=== PATIENT | male | born 1945 | race Caucasian/White ===

== ENCOUNTER → 2016-12-22 | Outpatient (CLI) | payer MEDICARE ==
[2016-12-22 14:17] LABS: BASO % 0.6 % (0.0-1.0); EOS # 0.2 K/mm3 (0.0-0.50); LARGE UNSTAINED CELL # 0.2 K/mm3 (0.0-0.4); LARGE UNSTAINED CELL % 2.7 % (0.0-4.0); LYMPH # 1.6 K/mm3 (1.5-4.5); MEAN CORPUSCULAR HEMOGLOBIN 33.4 pg (27.0-33.0); MEAN CORPUSCULAR HGB CONC 34.6 g/dl (32.0-36.5); MEAN CORPUSCULAR VOLUME 96.5 fl (80.0-96.0); MONO # 0.4 K/mm3 (0.0-0.8); MONO % 6.1 % (0.0-5.0); NEUTROPHILS # 3.3 K/mm3 (1.8-7.7); NEUTROPHILS % 58.5 % (36.0-66.0); PLATELET COUNT, AUTOMATED 218 k/mm3 (150-450); RED CELL DISTRIBUTION WIDTH 11.8 % (11.5-14.5); WHITE BLOOD COUNT 5.7 K/mm3 (4.0-10.0)
[2016-12-22 14:33] LABS: ALBUMIN/GLOBULIN RATIO 1.43 (1.00-1.93); ALKALINE PHOSPHATASE 57 U/L (45-117); ALT/SGPT 28 U/L (12-78); ANION GAP 8 MEQ/L (8-16); AST/SGOT 13 U/L (15-37); BILIRUBIN,TOTAL 0.6 MG/DL (0.2-1.0); BLOOD UREA NITROGEN 23 MG/DL (7-18); CARBON DIOXIDE LEVEL 30 MEQ/L (21-32); CHLORIDE LEVEL 99 MEQ/L (98-107); CHOLESTEROL LEVEL 194 MG/DL (<200); GLOMERULAR FILTRATION RATE > 60.0 (>42); GLUCOSE, FASTING 103 MG/DL (83-110); POTASSIUM SERUM 4.4 MEQ/L (3.5-5.1); SODIUM LEVEL 137 MEQ/L (136-145); TOTAL PROTEIN 6.8 GM/DL (6.4-8.2); TRIGLYCERIDES LEVEL 160 MG/DL (<150)
== END ==
LOC: M SMT 08:36
PROVIDERS: ATTEND Family Medicine
DX: R73.01 Impaired fasting glucose (principal); I10 Essential (primary) hypertension

== ENCOUNTER → 2017-11-24 | Outpatient (CLI) | payer MEDICARE | LOC: M ADAMS 15:17 | DX: S20.212A Contusion of left front wall of thorax, initial encounter (principal); X58.XXXA Exposure to other specified factors, initial encounter; Y92.9 Unspecified place or not applicable | CPT/HCPCS: 71101 ==

== ENCOUNTER → 2017-12-20 | Outpatient (CLI) | payer MEDICARE ==
[2017-12-20 12:09] LABS: ALBUMIN/GLOBULIN RATIO 1.43 (1.00-1.93); ALKALINE PHOSPHATASE 74 U/L (45-117); ALT/SGPT 24 U/L (12-78); ANION GAP 8 MEQ/L (8-16); AST/SGOT 16 U/L (7-37); BILIRUBIN,TOTAL 0.8 MG/DL (0.2-1.0); BLOOD UREA NITROGEN 15 MG/DL (7-18); CALCIUM LEVEL 8.7 MG/DL (8.8-10.2); CARBON DIOXIDE LEVEL 28 MEQ/L (21-32); CHLORIDE LEVEL 99 MEQ/L (98-107); CHOLESTEROL LEVEL 178 MG/DL (<200); CHOLESTEROL RISK RATIO 3.955 (<5); CREATININE FOR GFR 0.98 MG/DL (0.70-1.30); GLOMERULAR FILTRATION RATE > 60.0 (>42); GLUCOSE, FASTING 118 MG/DL (70-100); HDL CHOLESTEROL 45 MG/DL (>40); LDL CHOLESTEROL 99.6 MG/DL (<100); NON-HDL-C 133 MG/DL; POTASSIUM SERUM 4.4 MEQ/L (3.5-5.1); PSA SCREENING 5.77 NG/ML (< 4.0); SODIUM LEVEL 135 MEQ/L (136-145); TOTAL PROTEIN 6.8 GM/DL (6.4-8.2); TRIGLYCERIDES LEVEL 167 MG/DL (<150)
[2017-12-20 12:10] LABS: BASO % 0.6 % (0.0-1.0); EOS # 0.3 10^3/uL (0.0-0.50); EOS % 4.1 % (0.0-3.0); ESTIMATED AVERAGE GLUCOSE 114 MG/DL (60-110); HEMATOCRIT 40.3 % (42.0-52.0); HEMOGLOBIN 13.8 g/dl (13.5-17.5); HEMOGLOBIN A1c 5.6 %; IMMATURE GRANULOCYTE % 0.6 % (0-3.0); LYMPH # 1.7 10^3/uL (1.5-4.5); LYMPH % 27.1 % (24.0-44.0); MEAN CORPUSCULAR HEMOGLOBIN 32.2 pg (27.0-33.0); MEAN CORPUSCULAR HGB CONC 34.2 g/dl (32.0-36.5); MEAN CORPUSCULAR VOLUME 94.2 fl (80.0-96.0); MONO # 0.5 10^3/uL (0.0-0.8); MONO % 8.2 % (0.0-5.0); NEUTROPHILS # 3.8 10^3/uL (1.8-7.7); NEUTROPHILS % 59.4 % (36.0-66.0); PLATELET COUNT, AUTOMATED 220 10^3/uL (150-450); RED BLOOD COUNT 4.28 10^6/uL (4.30-6.10); WHITE BLOOD COUNT 6.3 10^3/uL (4.0-10.0)
== END ==
LOC: M SMT 08:22
DX: N40.0 Benign prostatic hyperplasia without lower urinary tract symptoms (principal); I10 Essential (primary) hypertension; R73.01 Impaired fasting glucose
CPT/HCPCS: 80053

== ENCOUNTER → 2019-01-17 | Outpatient (CLI) | payer MEDICARE ==
[2019-01-17 13:29] LABS: BASO % 0.4 % (0.0-1.0); EOS # 0.3 10^3/uL (0.0-0.50); EOS % 4.2 % (0.0-3.0); HEMATOCRIT 40.8 % (42.0-52.0); HEMOGLOBIN 13.7 g/dl (13.5-17.5); LYMPH # 1.8 10^3/uL (1.5-4.5); LYMPH % 25.5 % (24.0-44.0); MEAN CORPUSCULAR HEMOGLOBIN 32.6 pg (27.0-33.0); MEAN CORPUSCULAR HGB CONC 33.6 g/dl (32.0-36.5); MEAN CORPUSCULAR VOLUME 97.1 fl (80.0-96.0); MONO # 0.5 10^3/uL (0.0-0.8); MONO % 6.6 % (0.0-5.0); NEUTROPHILS # 4.4 10^3/uL (1.8-7.7); NEUTROPHILS % 62.3 % (36.0-66.0); PLATELET COUNT, AUTOMATED 249 10^3/uL (150-450)
[2019-01-17 13:56] LABS: ALBUMIN 3.9 GM/DL (3.2-5.2); ALT/SGPT 29 U/L (12-78); BILIRUBIN,TOTAL 0.6 MG/DL (0.2-1.0); BLOOD UREA NITROGEN 20 MG/DL (7-18); CARBON DIOXIDE LEVEL 28 MEQ/L (21-32); CHLORIDE LEVEL 102 MEQ/L (98-107); CHOLESTEROL LEVEL 191 MG/DL (<200); CHOLESTEROL RISK RATIO 4.063 (<5); CREATININE FOR GFR 0.98 MG/DL (0.70-1.30); GLOMERULAR FILTRATION RATE > 60.0 (>42); GLUCOSE, FASTING 100 MG/DL (70-100); HDL CHOLESTEROL 47 MG/DL (>40); LDL CHOLESTEROL 121 MG/DL (<100); NON-HDL-C 144 MG/DL; POTASSIUM SERUM 4.7 MEQ/L (3.5-5.1); SODIUM LEVEL 137 MEQ/L (136-145); TOTAL PROTEIN 6.5 GM/DL (6.4-8.2); TRIGLYCERIDES LEVEL 115 MG/DL (<150)
[2019-01-17 14:35] LABS: HEMOGLOBIN A1c 6.1 %
== END ==
LOC: M SMT 08:39
PROVIDERS: ATTEND Family Medicine
DX: N40.0 Benign prostatic hyperplasia without lower urinary tract symptoms (principal); I10 Essential (primary) hypertension; R73.01 Impaired fasting glucose
CPT/HCPCS: 36415; 80053; 80061; 83036; 85025; G0103

== ENCOUNTER → 2019-01-24 | Outpatient (REF) | payer MEDICARE | LOC: M SMT 17:17 | PROVIDERS: ATTEND Nurse Practitioner Family | DX: R97.20 Elevated prostate specific antigen [PSA] (principal) | CPT/HCPCS: 87086; G0463 ==

== ENCOUNTER → 2019-02-27 | Outpatient (CLI) | payer MEDICARE ==
--- NOTE | 2019-02-27 16:49 | REP ---
Prostate sonography: History: Elevated PSA Sonographic findings: Trans rectal prostate sonography demonstrates unremarkable seminal vesicles. Prostate gland is heterogeneously enlarged with calcifications and cystic changes noted. Glandular dimensions are measured at 5.2 x 6.4 x 4.2 cm with a calculated glandular volume of 71.9 ml. Transrectal sonographic guidance is provided to Dr. Baldwin who performed trans rectal ultrasound guided needle biopsy procedure . Electronically Signed by Lucien Hoffman MD 02/27/2019 04:40 P
== END ==
LOC: M SMT PRO 12:59
PROVIDERS: ATTEND Urology
DX: C61 Malignant neoplasm of prostate (principal)
CPT/HCPCS: 76872; 76942; G0416

== ENCOUNTER → 2019-03-16 | Outpatient (REF) | payer MEDICARE ==
[2019-03-16 12:50] LABS: BLOOD UREA NITROGEN 22 MG/DL (7-18); CALCIUM LEVEL 8.9 MG/DL (8.8-10.2); CARBON DIOXIDE LEVEL 28 MEQ/L (21-32); CHLORIDE LEVEL 99 MEQ/L (98-107); CREATININE FOR GFR 1.09 MG/DL (0.70-1.30); GLOMERULAR FILTRATION RATE > 60.0 (>42); GLUCOSE, FASTING 111 MG/DL (70-100); POTASSIUM SERUM 3.8 MEQ/L (3.5-5.1); SODIUM LEVEL 134 MEQ/L (136-145)
== END ==
LOC: M SMT 12:19
PROVIDERS: ATTEND Urology
DX: C61 Malignant neoplasm of prostate (principal)

== ENCOUNTER → 2019-03-17 | Outpatient (CLI) | payer MEDICARE ==
[~2019-03-17] MED LIST: ISOVUE-370 76% 100ML VIAL (Q9967) As Ordered ONE
--- NOTE | 2019-03-17 10:11 | REP ---
CT of the abdomen and pelvis with IV contrast, without bowel contrast: Comparison is a 02/06/2015. The visualized lung vo are unremarkable. The hepatic parenchyma, gallbladder, pancreas, spleen, adrenals, kidneys and abdominal aorta are unremarkable. There is no retroperitoneal adenopathy or mass. There is no mesenteric adenopathy or mass. There is no ascites. There is a small fat-containing umbilical hernia measuring 16 mm in diameter. This is unchanged. The bowel and mesentery are unremarkable. There is a small splenule medial to the spleen. This is unchanged. Pelvis: There is sigmoid colon diverticulosis. There is no CT evidence of diverticulitis. The prostate is diffusely enlarged, similar to the prior study. There is no internal iliac or external iliac adenopathy. There is no femoral adenopathy. There is no ascites. The bladder is unremarkable except that the bladder base is effaced by the enlarged prostate. There are no lytic, blastic or destructive skeletal changes in the lumbar spine, sacrum or pelvis. There is degenerative disc disease in the lumbar spine from L3-S1. Impression: The prostate is diffusely enlarged, unchanged from the prior study and effaces the bladder base. This is also unchanged. There is no pelvic, retroperitoneal or mesenteric adenopathy or mass. There is no ascites. There are no lytic, blastic or destructive skeletal changes. There is a stable splenule medial to the spleen, unchanged. Sigmoid colon diverticulosis without diverticulitis, unchanged. Small fat-containing umbilical hernia, unchanged. There is a small fixed hiatal hernia, unchanged. Electronically Signed by Osmani Hernandez MD 03/17/2019 10:02 A
--- NOTE | 2019-03-17 16:05 | REP ---
WHOLE BODY BONE SCAN: Following the intravenous administration of 21.7 mCi of technetium 99m MDP, the patient's whole body is imaged in the anterior and posterior projections with additional oblique and lateral views obtained. There appears to be arthritic uptake at both shoulders, left sternoclavicular joint, bilateral hands and wrists, lumbosacral spine, right ankle and left foot. No compelling scintigraphic evidence of osseous metastases is seen. Renal and bladder activity are seen. IMPRESSION: Scattered arthritic uptake. No compelling scintigraphic evidence of osseous metastases. Electronically Signed by Osmani Pool MD 03/21/2019 05:39 P
--- NOTE | 2019-03-20 13:23 | REP ---
CT of the chest without IV contrast: There are no comparison chest CTs. There are no lung nodules or masses. There are no infiltrates or pleural effusions. There is no mediastinal or axillary lymph node enlargement. The study is insensitive for hilar lymph node enlargement in the absence of IV contrast. The thoracic aorta is unremarkable. Cardiac size is normal. There is no pericardial effusion. There are no lytic, blastic or destructive skeletal changes. Impression: There is no evidence of metastatic disease or adenopathy. Negative CT study of the chest. Electronically Signed by Osmani Hernandez MD 03/20/2019 01:15 P
== END ==
LOC: M RAD 09:26
PROVIDERS: ATTEND Urology
DX: C61 Malignant neoplasm of prostate (principal); K57.30 Diverticulosis of large intestine without perforation or abscess without bleeding; K42.9 Umbilical hernia without obstruction or gangrene; K44.9 Diaphragmatic hernia without obstruction or gangrene
CPT/HCPCS: 71250; 74177; 78306; A9503; Q9967

== ENCOUNTER → 2019-05-17 | Outpatient (CLI) | payer MEDICARE ==
[~2019-05-17] MED LIST changes: +ADV500INH INH; +ALPH0.156 OU; +BIMA01SOL OU; +CHOL100029 PO; +FLOM0.4C39 PO; +GLUC1CAP10 PO; +IPRA0.00 INH; -ISOVUE-370 76% 100ML VIAL (Q9967) As Ordered ONE; +LISI20TA20 PO; +OMEP20CA4 PO; +PREV1CAP PO; +VENTAER INH
[2019-05-17 10:46] LABS: HEMATOCRIT 42.8 % (42.0-52.0); HEMOGLOBIN 14.7 g/dl (13.5-17.5); MEAN CORPUSCULAR HEMOGLOBIN 32.5 pg (27.0-33.0); MEAN CORPUSCULAR HGB CONC 34.3 g/dl (32.0-36.5); MEAN CORPUSCULAR VOLUME 94.7 fl (80.0-96.0); PLATELET COUNT, AUTOMATED 197 10^3/uL (150-450); RED BLOOD COUNT 4.52 10^6/uL (4.30-6.10); WHITE BLOOD COUNT 7.4 10^3/uL (4.0-10.0)
[2019-05-17 10:58] LABS: INR 1.09; PROTHROMBIN TIME 13.8 SECONDS (11.8-14.0)
[2019-05-17 10:59] LABS: PARTIAL THROMBOPLASTIN TIME 27.8 SECONDS (25.0-38.4)
[2019-05-17 11:39] LABS: BLOOD UREA NITROGEN 18 MG/DL (7-18); CALCIUM LEVEL 8.9 MG/DL (8.8-10.2); CARBON DIOXIDE LEVEL 27 MEQ/L (21-32); CHLORIDE LEVEL 100 MEQ/L (98-107); CREATININE FOR GFR 1.07 MG/DL (0.70-1.30); GLOMERULAR FILTRATION RATE > 60.0 (>42); GLUCOSE, FASTING 87 MG/DL (70-100); POTASSIUM SERUM 4.2 MEQ/L (3.5-5.1); SODIUM LEVEL 135 MEQ/L (136-145)
--- NOTE | 2019-05-18 21:07 | ECGEPIP ---
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
== END ==
LOC: M LAB 10:02
PROVIDERS: ATTEND Urology
DX: Z01.818 Encounter for other preprocedural examination (principal); C61 Malignant neoplasm of prostate; N39.0 Urinary tract infection, site not specified; I44.2 Atrioventricular block, complete; I45.19 Other right bundle-branch block

== ENCOUNTER 2019-05-25 06:00 | Inpatient (IN) | payer MEDICARE ==
[~2019-05-25] VITALS: Ht 177.8 cm; Wt 109.8 kg
[2019-05-25] VITALS (7 sets, daily range): BP systolic 109–120; BP diastolic 71–80
[2019-05-25] MEDS ORDERED: ceFAZolin SOD 2 GM in IV 1 EA IV ONE (07:00)
[2019-05-25] MEDS ORDERED: LR 1,000 ML IV ONE (07:00)
[2019-05-25] MEDS ORDERED: HEPARIN SOD (PORCINE) 5000 UNITS/ML VIAL SQ ONE (07:00)
[2019-05-25] MEDS ORDERED: LIDOCAINE 1% SDV INJ 30 ML VIAL As Ordered ONE (07:01)
[2019-05-25] MEDS ORDERED: BUPIVACAINE HCL 0.25% 30 ML VIAL As Ordered ONE (07:01)
[2019-05-25] MEDS ORDERED: MORPHINE 4 MG/ML 1ML VIAL/SYRINGE (J2270) IV PRN (07:30)
[2019-05-25] MEDS ORDERED: PERCOCET 5MG/325MG TAB PO PRN ×2 (07:30→16:15)
[2019-05-25] MEDS ORDERED: ALBUTEROL 90 MCG/ACT 8GM HFA INHALER INH PRN (07:30)
[2019-05-25] MEDS ORDERED: ACETAMINOPHEN TAB 650MG DOSE (2X325MG) PO PRN (07:30)
[2019-05-25] MEDS ORDERED: PROPOFOL 200 MG/20 ML VIAL As Ordered ONE ×2 (08:32→15:35)
[2019-05-25] MEDS ORDERED: HYDROmorphone HCL 2 MG/ML 1ML VIAL (J1170) As Ordered ONE (08:32)
[2019-05-25] MEDS ORDERED: MIDAZOLAM INJ 2 MG/2 ML VIAL (J2250) As Ordered ONE (08:32)
[2019-05-25] MEDS ORDERED: ROCURONIUM BROMIDE 50 MG/5 ML VIAL As Ordered ONE ×5 (08:32→14:51)
[2019-05-25] MEDS ORDERED: ePHEDrine SULFATE 25 MG/5 ML(5MG/ML) SYRINGE As Ordered ONE (08:32)
[2019-05-25] MEDS ORDERED: LIDOCAINE 2% INJ 100 MG/5 ML SDV (FOR ANES.) As Ordered ONE (08:32)
[2019-05-25] MEDS ORDERED: ONDANSETRON 4MG/2ML VIAL (J2405) As Ordered ONE (08:32)
[2019-05-25] MEDS ORDERED: fentaNYL 250 MCG/5 ML INJECTION (J3010) As Ordered ONE (08:32)
[2019-05-25] MEDS ORDERED: dexameTHASONE 4 MG/ML 1ML VIAL (J1100) As Ordered ONE (08:32)
[2019-05-25] MEDS ORDERED: SUGAMMADEX SODIUM 500 MG/5 ML VIAL (BRIDION) As Ordered ONE (08:33)
[2019-05-25] MEDS ORDERED: ceFAZolin 2 GM/D5W 50 ML IV BAG (J0690 PER 500MG) As Ordered ONE (11:22)
[2019-05-25] MEDS ORDERED: PHENYLephrine HCL 500 MCG/5 ML (100MCG/ML) SYRINGE (J2370) As Ordered ONE ×2 (11:26→13:01)
[2019-05-25] MEDS ORDERED: PHENYLEPHRINE INJ 10MG/ML VIAL (J2370) As Ordered ONE (13:26)
[2019-05-25] MEDS ORDERED: LR 1,000 ML IV SCH (16:15)
[2019-05-25] MEDS ORDERED: HYDROMORPHONE HCL 0.5 MG/ 0.5 ML SYRINGE (J1170 PER 1) IV PRN (16:15)
[2019-05-25] MEDS ORDERED: ONDANSETRON 4MG/2ML VIAL (J2405) IV PRN (16:15)
[2019-05-25] MEDS ORDERED: fentaNYL 100 MCG/2 ML INJECTION (J3010) IV PRN (16:15)
[2019-05-25] MEDS ORDERED: HYDROMORPHONE HCL 0.5 MG/ 0.5 ML SYRINGE (J1170 PER 1) As Ordered ONE (16:29)
[2019-05-25 16:37] LABS: HEMATOCRIT 41.9 % (42.0-52.0); HEMOGLOBIN 14.1 g/dl (13.5-17.5); MEAN CORPUSCULAR HEMOGLOBIN 32.2 pg (27.0-33.0); MEAN CORPUSCULAR HGB CONC 33.7 g/dl (32.0-36.5); MEAN CORPUSCULAR VOLUME 95.7 fl (80.0-96.0); PLATELET COUNT, AUTOMATED 247 10^3/uL (150-450); RED BLOOD COUNT 4.38 10^6/uL (4.30-6.10); WHITE BLOOD COUNT 16.1 10^3/uL (4.0-10.0)
[2019-05-25 17:01] LABS: BLOOD UREA NITROGEN 17 MG/DL (7-18); CALCIUM LEVEL 8.1 MG/DL (8.8-10.2); CARBON DIOXIDE LEVEL 26 MEQ/L (21-32); CHLORIDE LEVEL 99 MEQ/L (98-107); CREATININE FOR GFR 1.23 MG/DL (0.70-1.30); GLOMERULAR FILTRATION RATE > 60.0 (>42); GLUCOSE, FASTING 159 MG/DL (70-100); POTASSIUM SERUM 4.7 MEQ/L (3.5-5.1); SODIUM LEVEL 132 MEQ/L (136-145)
[2019-05-25] MEDS: DOCUSATE SODIUM 100 MG CAP PO SCH ×2 (17:21→21:29)
[2019-05-25] MEDS: NS 1,000 ML IV SCH ×2 (17:21→17:41)
[2019-05-25] MEDS: HEPARIN SOD (PORCINE) 5000 UNITS/ML VIAL SC SCH ×2 (17:21→21:29)
[2019-05-25] MEDS: ceFAZolin SOD 1 GM in D5W MINI-BAG PLUS 50 ML IV SCH (17:40)
[2019-05-25] MEDS: PERCOCET 5MG/325MG TAB PO PRN (17:40)
--- NOTE | 2019-05-25 17:40 | ROOPDOC ---
[facility] Report Of Operation Report of Operation DATE OF PROCEDURE: 05/25/19 PREPROCEDURE DIAGNOSES: Prostate Cancer. POSTPROCEDURE DIAGNOSES: Prostate Cancer. PROCEDURE: Robotic-assisted Laparoscopic Radical Prostatectomy with Bilateral Pelvic Lymph Node Dissection. SURGEON: Mary Staton MD TENANT RELATIONS COORDINATOR: None ANESTHESIA: General. OPERATIVE INDICATIONS: This is a 73 year old male with clinical T1c Sparks 4+4 prostate cancer, here today for treatment. DESCRIPTION OF PROCEDURE: The patient was brought to the operating room and general anesthesia was induced. Prophylactic antibiotics were infused. He was then placed in the supine position and prepped and draped in the usual sterile fashion. At this point, a Mccormack catheter was inserted into the bladder and the balloon was filled with 10 mL of sterile water. We then made a midline incision just above the umbilicus for an 8 mm port. A Veress needle was utilized to achieve pneumoperitoneum. Next, an 8 mm port was inserted into the incision and subsequently a camera was inserted. There were no injuries from the Veress needle or initial trocar placement. Then three robotic ports were placed in the usual configuration in line just below the level of the umbilicus. An12 mm first assistant manager port was inserted lateral to the camera port. Once all the ports were placed, the robot was docked. Additional lysis of adhesions between the sigmoid colon and abdominal wall was then performed. The bladder was then released from the anterior abdominal wall using electrocautery. Once the bladder was dropped, the fat overlying the prostate was cleared using electrocautery. The superficial dorsal vein was controlled with electrocautery. The endopelvic fascia was opened on both sides and the dorsal venous complex was cleared. Next, a #0 Vicryl [id number] stitch was placed around the dorsal venous complex. Of note, the patient had a very protuberant notch coming down from his pubic bone that made visualization and dissection deep in his pelvis very difficult. I therefore used electrocautery to resect the notch back. While doing so cystic fluid drained from it. The tissue removed from the notch was sent as pubic bone cyst wall. Once that was done, the bladder was opened and dissected away from the prostate. At this point, the prostate was lifted up. The vasa deferentia were identified in the midline. They were controlled with electrocautery and then transected. The seminal vesicles were also dissected bilaterally. At this point I ligated and transected bilateral prostatic pedicles using the Harmonic scalpel. The pedicles were carried towards the apex. After taking care of the pedicles the dorsal venous complex was transected with electrocautery. The urethra was transected. The prostate was then mobilized off the rectum using cold scissors and the prostate did seem more adherent to the rectum than normal. After the prostate was completely removed the pelvis was examined and there appeared to be an approximately 3cm tear in the rectum. This inadvertent tear was inherent to the procedure given that the prostate did not mobilize off the rectum as easily as it normally does. I closed this tear in 2 layers using running 2-0 Vicryl suture. At this point, we checked for hemostasis and it appeared very good. Next, we performed bilateral pelvic lymph node dissection. This was done in a standard fashion. The limits of dissection were the iliac vein proximally, the obturator nerve distally, the pelvic sidewall laterally, and the bladder medially. All lymphatic tissue within these limits was removed. I performed the same procedure on both the right and left sides. Hemostasis was then obtained with a combination of bipolar electrocautery and Weck clips. The lymphatic packets were then placed in separate Endo Catch bags for future retrieval. Once hemostasis was confirmed, I then moved on to perform the vesicourethral anastomosis. The vesicourethral anastomosis was performed in running fashion using a Quill stitch. Once this was done, the final #20-American Mccormack catheter was placed. The balloon was filled with 15 mL of sterile water. Upon completion of the vesicourethral anastomosis, it was tested by filling the bladder with sterile water. The anastomosis appeared to be watertight. At this point, the prostate and seminal vesicles were placed in an Endo Catch bag for future retrieval. A Cruz-Villasenor drain was brought in through the left robotic port skin site and the drain was positioned anterior to the bladder. The robot was then undocked. A Larry fascial closure device was utilized to place a #0 Vicryl suture through the fascia of the 12 mm first assistant manager port. The drain was secured to the skin with #2-0 Ethilon suture. The prostate, as well as the lymphatic packets were then extracted from the camera port site after the skin was extended. The fascia in this incision was then closed with a running #0 Vicryl stitch. Next, all the remaining ports were removed and there did not appear to be any bleeding from any of the port sites. The previously placed #0 Vicryl free ties through the first assistant manager port were then tied down and all incisions were irrigated. Last, all of the incisions were closed with running subcuticular #4-0 Monocryl sutures. Local anesthesia was applied. Dermabond was then applied to the incisions. This marked the conclusion of the procedure. The patient was then awakened from anesthesia and transported to the recovery room in stable condition. ESTIMATED BLOOD LOSS: 400 mL. COMPLICATIONS: 3cm inadvertent rectal tear SPECIMENS: Prostate and seminal vesicles, right pelvic lymph nodes, left pelvic lymph nodes, pubic bone cyst wall. PLAN: The patient will be admitted to the hospital postoperatively, and he will likely be discharged home within the next 1-2 days. MARY STATON MD May 25, 2019 17:40
[2019-05-25] MEDS: ADVAIR HFA 115/21MCG INHALER INH SCH (20:04)
[2019-05-25] MEDS: IPRATROPIUM 0.5MG/ALBUTEROL 2.5MG INH SOL UD 3ML (DUONEB)(J7620) NEB SCH (21:00)
[2019-05-26] VITALS (8 sets, daily range): BP systolic 92–114; BP diastolic 63–76; O2SAT 94–95
[2019-05-26] MEDS: BRIMONIDINE 0.15% OPHTH SOLN 5 ML OU SCH ×3 (00:29→20:29)
[2019-05-26] MEDS: ceFAZolin SOD 1 GM in D5W MINI-BAG PLUS 50 ML IV SCH (00:29)
[2019-05-26] MEDS: NS 1,000 ML IV SCH (02:35)
[2019-05-26] MEDS: PERCOCET 5MG/325MG TAB PO PRN ×4 (04:29→20:32)
[2019-05-26 05:59] LABS: HEMATOCRIT 37.4 % (42.0-52.0); HEMOGLOBIN 12.6 g/dl (13.5-17.5); MEAN CORPUSCULAR HEMOGLOBIN 32.9 pg (27.0-33.0); MEAN CORPUSCULAR HGB CONC 33.7 g/dl (32.0-36.5); MEAN CORPUSCULAR VOLUME 97.7 fl (80.0-96.0); PLATELET COUNT, AUTOMATED 193 10^3/uL (150-450); RED BLOOD COUNT 3.83 10^6/uL (4.30-6.10); WHITE BLOOD COUNT 9.9 10^3/uL (4.0-10.0)
[2019-05-26] MEDS: HEPARIN SOD (PORCINE) 5000 UNITS/ML VIAL SC SCH ×3 (06:21→21:56)
[2019-05-26 06:24] LABS: BLOOD UREA NITROGEN 19 MG/DL (7-18); CALCIUM LEVEL 7.6 MG/DL (8.8-10.2); CARBON DIOXIDE LEVEL 27 MEQ/L (21-32); CHLORIDE LEVEL 100 MEQ/L (98-107); CREATININE FOR GFR 1.06 MG/DL (0.70-1.30); GLOMERULAR FILTRATION RATE > 60.0 (>42); GLUCOSE, FASTING 109 MG/DL (70-100); POTASSIUM SERUM 4.2 MEQ/L (3.5-5.1); SODIUM LEVEL 133 MEQ/L (136-145)
[2019-05-26] MEDS: ADVAIR HFA 115/21MCG INHALER INH SCH ×2 (07:29→19:57)
[2019-05-26] MEDS: DOCUSATE SODIUM 100 MG CAP PO SCH ×2 (08:08→20:29)
[2019-05-26] MEDS: OMEPRAZOLE 20 MG CAP PO SCH (08:09)
[2019-05-26] MEDS: hydroCHLOROthiazide 25 MG TAB PO SCH (08:09)
[2019-05-26] MEDS: LISINOPRIL 20 MG TAB PO SCH (09:00)
[2019-05-26] MEDS: IPRATROPIUM 0.5MG/ALBUTEROL 2.5MG INH SOL UD 3ML (DUONEB)(J7620) NEB SCH ×2 (09:00→20:03)
--- NOTE | 2019-05-26 09:00 | IPNPDOC ---
Subjective Review oF Systems Chief Complaint The patient is a 73-year-old male admitted with a reason for visit of Prostate Cancer. Events since Last Encounter No acute events o/n. Patient only notes mild pain when getting out of bed. No n/v. No f/c/ns. Objective Physical Examination General Exam: Alert, Cooperative, No Acute Distress ABDOMEN EXAM: Soft, Tenderness (minimal), Other (nondistended; incisions clean/dry/intact; serosanguinous output from drain) Skin Exam: Nl turgor and temperature Neuro Exam: Normal Speech Psych Exam: Mental status NL Other physical findings catheter draining pink-tinged urine Vital Signs/I&O Vital Signs Date Time Temp Pulse Resp B/P (MAP) Pulse Ox O2 Delivery O2 Flow Rate FiO2 05/26/19 06:00 97.2 70 17 100/63 (75) 96 2.0 05/26/19 05:08 Nasal Cannula I&O- Last 24 Hours up to 6 AM 05/26/19 06:00 Intake Total 4650 ml Output Total 1190 ml Balance 3460 ml Laboratory Data Labs 24H Laboratory Tests 2 05/25/19 16:17: Nucleated Red Blood Cells % (auto) 0.0, Anion Gap 7L, Glomerular Filtration Rate > 60.0, Blood Urea Nitrogen 17, Creatinine 1.23, Sodium Level 132L, Potassium Le srini 4.7, Chloride Level 99, Carbon Dioxide Level 26, Calcium Level 8.1L 05/26/19 05:20: Nucleated Red Blood Cells % (auto) 0.0, Anion Gap 6L, Glomerular Filtration Rate > 60.0, Blood Urea Nitrogen 19H, Creatinine 1.06, Sodium Level 133L, Potassium Level 4.2, Chloride Level 100, Carbon Dioxide Level 27, Calcium Level 7.6L CBC/BMP Laboratory Tests 05/25/19 16:17 Red Blood Count 4.38, Mean Corpuscular Volume 95.7, Mean Corpuscular Hemoglobin 32.2, Mean Corpuscular Hemoglobin Concent 33.7, Red Cell Distribution Width 12.3, Calcium Level 8.1 L 05/26/19 05:20 Red Blood Count 3.83 L, Mean Corpuscular Volume 97.7 H, Mean Corpuscular H emoglobin 32.9, Mean Corpuscular Hemoglobin Concent 33.7, Red Cell Distribution Width 12.8, Calcium Level 7.6 L Assessment/Plan Date Seen The patient was seen on 05/26/19. Patient Summary This is a 73 y/o M POD1 s/p RALP w/ BPLND. He is doing well this morning. Labs are w/i acceptable limits. Urine is draining almost clear. Plan/VTE VTE Prophylaxis Ordered?: Yes VTE Exclusion Mechanical Proph: N/A:VTE Prophy Ordered Plan/Urinary Catheter Urinary Catheter: Other Catheter: (catheter to stay in for 7-10 days for healing of the vesicourethral anastomosis) Plan - d/c IVF - percocet prn pain - cont home meds - SQH - SCDs when in bed - incentive spirometry - periop ancef - ambulate w/ assistance - CLD, ok to advance to fulls - will keep on fulls for a few days given small intraop rectal tear - possible discharge home later today - w/ sweeney and likely w/o drain if output remains low MARY STATON MD May 26, 2019 09:00
[2019-05-26 16:13] LABS: HEMATOCRIT 36.5 % (42.0-52.0); HEMOGLOBIN 11.9 g/dl (13.5-17.5); MEAN CORPUSCULAR HEMOGLOBIN 31.9 pg (27.0-33.0); MEAN CORPUSCULAR HGB CONC 32.6 g/dl (32.0-36.5); MEAN CORPUSCULAR VOLUME 97.9 fl (80.0-96.0); PLATELET COUNT, AUTOMATED 194 10^3/uL (150-450); RED BLOOD COUNT 3.73 10^6/uL (4.30-6.10); WHITE BLOOD COUNT 9.7 10^3/uL (4.0-10.0)
[2019-05-26 16:33] LABS: BLOOD UREA NITROGEN 20 MG/DL (7-18); CALCIUM LEVEL 7.7 MG/DL (8.8-10.2); CARBON DIOXIDE LEVEL 29 MEQ/L (21-32); CHLORIDE LEVEL 98 MEQ/L (98-107); GLOMERULAR FILTRATION RATE > 60.0 (>42); GLUCOSE, FASTING 82 MG/DL (70-100); POTASSIUM SERUM 4.2 MEQ/L (3.5-5.1); SODIUM LEVEL 132 MEQ/L (136-145)
[2019-05-26] MEDS: ONDANSETRON 4MG/2ML VIAL (J2405) IV PRN ×2 (20:52→21:56)
[2019-05-27 01:32] VITALS: O2SAT 95
[2019-05-27 02:00] VITALS: BP 108/65
[2019-05-27] MEDS: PERCOCET 5MG/325MG TAB PO PRN ×2 (03:43→08:37)
[2019-05-27] MEDS: HEPARIN SOD (PORCINE) 5000 UNITS/ML VIAL SC SCH ×2 (05:52→14:00)
[2019-05-27 06:00] VITALS: BP 107/69
[2019-05-27 06:48] LABS: HEMATOCRIT 38.6 % (42.0-52.0); HEMOGLOBIN 12.9 g/dl (13.5-17.5); MEAN CORPUSCULAR HEMOGLOBIN 32.3 pg (27.0-33.0); MEAN CORPUSCULAR HGB CONC 33.4 g/dl (32.0-36.5); MEAN CORPUSCULAR VOLUME 96.5 fl (80.0-96.0); PLATELET COUNT, AUTOMATED 194 10^3/uL (150-450); WHITE BLOOD COUNT 9.9 10^3/uL (4.0-10.0)
[2019-05-27 07:08] LABS: BLOOD UREA NITROGEN 12 MG/DL (7-18); CALCIUM LEVEL 8.3 MG/DL (8.8-10.2); CARBON DIOXIDE LEVEL 28 MEQ/L (21-32); CHLORIDE LEVEL 100 MEQ/L (98-107); CREATININE FOR GFR 0.98 MG/DL (0.70-1.30); GLOMERULAR FILTRATION RATE > 60.0 (>42); GLUCOSE, FASTING 112 MG/DL (70-100); POTASSIUM SERUM 4.2 MEQ/L (3.5-5.1); SODIUM LEVEL 133 MEQ/L (136-145)
[2019-05-27] MEDS: ADVAIR HFA 115/21MCG INHALER INH SCH (07:22)
[2019-05-27] MEDS: IPRATROPIUM 0.5MG/ALBUTEROL 2.5MG INH SOL UD 3ML (DUONEB)(J7620) NEB SCH (07:22)
[2019-05-27] MEDS ORDERED: CIPROFLOXACIN 500 MG TAB PO SCH (07:45)
[2019-05-27] MEDS: OMEPRAZOLE 20 MG CAP PO SCH (08:35)
[2019-05-27] MEDS: LISINOPRIL 20 MG TAB PO SCH (08:38)
[2019-05-27] MEDS: DOCUSATE SODIUM 100 MG CAP PO SCH (08:38)
[2019-05-27] MEDS: hydroCHLOROthiazide 25 MG TAB PO SCH (08:38)
[2019-05-27 09:00] VITALS: O2SAT 97
[2019-05-27 10:00] VITALS: BP 106/60
[2019-05-27] MEDS: BRIMONIDINE 0.15% OPHTH SOLN 5 ML OU SCH (10:36)
--- NOTE | 2019-05-27 11:10 | IPNPDOC ---
Subjective Review oF Systems Chief Complaint The patient is a 73-year-old male admitted with a reason for visit of Prostate Cancer. Events since Last Encounter No acute events o/n. Pain is much better controlled today. The patient has ambulated today w/o difficulty. No n/v. No f/c/ns. Objective Physical Examination General Exam: Alert, Cooperative, No Acute Distress ABDOMEN EXAM: Soft, Tenderness (minimal), Other (nondistended; incisions clean/dry/intact; serosanguinous output from drain) Skin Exam: Nl turgor and temperature Neuro Exam: Normal Speech Psych Exam: Mental status NL Other physical findings catheter draining pink urine Vital Signs/I&O Vital Signs Date Time Temp Pulse Resp B/P (MAP) Pulse Ox O2 Delivery O2 Flow Rate FiO2 05/27/19 10:00 98.2 70 18 106/60 (75) 97 05/27/19 01:32 Room Air 05/26/19 18:00 2.0 I&O- Last 24 Hours up to 6 AM 05/27/19 05:59 Intake Total 2555 ml Output Total 3213 ml Balance -658 ml Laboratory Data Labs 24H Laboratory Tests 2 05/26/19 15:52: Nucleated Red Blood Cells % (auto) 0.0, Anion Gap 5L, Glomerular Filtration Rate > 60.0, Blood Urea Nitrogen 20H, Creatinine 1.20, Sodium Level 132L, Potassium Level 4.2, Chloride Level 98, Carbon Dioxide Level 29, Calcium Level 7.7L 05/27/19 06:26: Nucleated Red Blood Cells % (auto) 0.0, Anion Gap 5L, Glomerular Filtration Rate > 60.0, Blood Urea Nitrogen 12, Creatinine 0.98, Sodium Level 133L, Potassium Level 4.2, Chloride Level 100, Carbon Dioxide Level 28, Calcium Level 8.3L 05/27/19 10:33: CBC/BMP Laboratory Tests 05/26/19 15:52 Red Blood Count 3.73 L, Mean Corpuscular Volume 97.9 H, Mean Corpuscular Hemoglobin 31.9, Mean Corpuscular Hemoglobin Concent 32.6, Red Cell Distribution Width 13.0, Calcium Level 7.7 L 05/27/19 06:26 Red Blood Count 4.00 L, Mean Corpuscular Volume 96.5 H, Mean Corpuscular Hemoglobin 32.3, Mean Corpuscular Hemoglobin Concent 33.4, Red Cell Distribution Width 12.5, Calcium Level 8.3 L Assessment/Plan Date Seen The patient was seen on 05/27/19. Patient Summary This is a 73 y/o M POD2 s/p RALP w/ BPLND. He is doing well. Labs are stable. UOP has been excellent. VALERIANO output has been a little high. Plan/VTE VTE Prophylaxis Ordered?: Yes VTE Exclusion Mechanical Proph: N/A:VTE Prophy Ordered Plan/Urinary Catheter Urinary Catheter: Other Catheter: (catheter to stay in for 7-10 days for healing of the vesicourethral anastomosis) Plan - send VALERIANO fluid for Cr - if consistent w/ serum, will d/c the VALERIANO drain - percocet prn pain - continue home meds - SCDs in bed - ambulate - SQH - incentive spirometry - discharge home today w/ catheter (will d/c VALERIANO drain prior if Cr is normal) MARY STATON MD May 27, 2019 11:10
[2019-05-27] MEDS ORDERED: PERCOCET PO (11:19)
[2019-05-27] MEDS ORDERED: COLA100C5 PO (11:19)
[2019-05-27] MEDS ORDERED: CIPR-249 PO (11:19)
[2019-05-27 12:26] LABS: CREATININE BF 0.9 MG/DL (NOT ESTABLISHED); SOURCE, BODY FLUID CREATININE PERITONEAL
--- NOTE | 2019-05-28 19:09 | DSES ---
DATE OF ADMISSION: 05/25/2019 DATE OF DISCHARGE: 05/27/2019 ADMITTING DIAGNOSIS: Prostate cancer. DISCHARGE DIAGNOSIS: Prostate cancer. ADMITTING PHYSICIAN: Dr. Alex Baldwin DISCHARGING PHYSICIAN: Dr. Alex Baldwin PROCEDURES PERFORMED: Robotic assisted laparoscopic radical prostatectomy and bilateral pelvic lymph node dissection on 05/25/2019. HISTORY OF PRESENT ILLNESS: This is a 73-year-old male with prostate cancer who underwent the above listed procedure on 05/25/2019. He was admitted to the hospital postoperatively. HOSPITALIZATION COURSE: The patient was admitted to the hospital after undergoing robotic radical prostatectomy with bilateral pelvic lymph node dissection. His postoperative course was notable only for moderate pain with ambulation on postoperative day 1. All of his laboratories were within acceptable limits. He had excellent urine output through his catheter. Since he was having a moderate amount of pain while ambulating, he was not ready for discharge home on postoperative day 1. By postoperative day 2, his pain was much better controlled with ambulation. Vital signs were within normal limits. He did have a moderate amount of output from his Cruz-Villasenor drain, I therefore sent fluid from his Cruz-Villasenor drain to be checked for creatinine value and that came back normal. We therefore removed his Cruz-Villasenor drain on postoperative day 2. Since he was doing well and tolerating a diet on postoperative day 2, he was deemed ready for discharge home. He was discharged home with his catheter in place with a plan for him to followup in the clinic in about 7 or 10 days with catheter removal and to discuss pathology results.
== END 2019-05-27 14:02 | disposition home or self-care (01) | DRG 708 ==
LOC: M OR 06:00 → M MSPAV 17:08
PROVIDERS: ADMIT Urology; ATTEND Urology
PROC: 07BC4ZX Excision of Pelvis Lymphatic, Percutaneous Endoscopic Approach, Diagnostic (ICD-10-PCS; 2019-05-25)
PROC: 8E0W4CZ Robotic Assisted Procedure of Trunk Region, Percutaneous Endoscopic Approach (ICD-10-PCS; 2019-05-25)
PROC: 0VT04ZZ Resection of Prostate, Percutaneous Endoscopic Approach (ICD-10-PCS; principal; 2019-05-25 07:30)
DX: C61 Malignant neoplasm of prostate (principal); I10 Essential (primary) hypertension; J45.20 Mild intermittent asthma, uncomplicated; H40.9 Unspecified glaucoma; N40.0 Benign prostatic hyperplasia without lower urinary tract symptoms; K22.70 Barrett's esophagus without dysplasia; M51.36 Other intervertebral disc degeneration, lumbar region; Z79.1 Long term (current) use of non-steroidal anti-inflammatories (NSAID); Z79.899 Other long term (current) drug therapy; Z87.891 Personal history of nicotine dependence

== ENCOUNTER 2019-06-10 13:24 | Inpatient (IN) | payer MEDICARE ==
[~2019-06-10] VITALS: Ht 177.8 cm; Wt 102.6 kg
[~2019-06-10 13:24] MED LIST changes: +CIPR-249 PO; +COLA100C5 PO; +PERCOCET PO
[2019-06-10 14:15] LABS: BASO # 0.1 10^3/uL (0.0-0.2); BASO % 0.8 % (0.0-1.0); EOS # 0.8 10^3/uL (0.0-0.5); EOS % 7.4 % (0.0-3.0); HEMATOCRIT 34.3 % (42.0-52.0); HEMOGLOBIN 11.8 g/dl (13.5-17.5); LYMPH # 1.4 10^3/uL (1.5-5.0); LYMPH % 13.8 % (24.0-44.0); MEAN CORPUSCULAR HGB CONC 34.4 g/dl (32.0-36.5); MEAN CORPUSCULAR VOLUME 95.8 fl (80.0-96.0); MONO # 0.8 10^3/uL (0.0-0.8); MONO % 7.4 % (0.0-5.0); NEUTROPHILS # 7.2 10^3/uL (1.5-8.5); PLATELET COUNT, AUTOMATED 313 10^3/uL (150-450); RED BLOOD COUNT 3.58 10^6/uL (4.30-6.10); WHITE BLOOD COUNT 10.3 10^3/uL (4.0-10.0)
[2019-06-10 14:27] LABS: APPEARANCE, URINE CLOUDY (CLEAR); BACTERIA, URINE AUTO 2+ (NEGATIVE); BILIRUBIN, URINE AUTO NEGATIVE (NEGATIVE); BLOOD, URINE BLOOD 3+ (NEGATIVE); COLOR, URINE AMBER (YELLOW); GLUCOSE, URINE (UA) AUTO NEGATIVE (NEGATIVE); KETONE, URINE AUTO NEGATIVE (NEGATIVE); LEUKOCYTE ESTERASE, URINE AUTO 3+ (NEGATIVE); MUCUS, URINE SMALL (NEGATIVE); NITRITE, URINE AUTO NEGATIVE (NEGATIVE); PROTEIN, URINE AUTO 1+ mg/dL (NEGATIVE); RBC, URINE AUTO 132 /HPF (0-3); SPECIFIC GRAVITY URINE AUTO 1.025 (1.002-1.035); SQUAMOUS EPITHELIAL CELL UR AU 0 /HPF (0-6); UROBILINOGEN, URINE AUTO 0.2 mg/dL (0.0-2.0); WBC, URINE AUTO TNTC /HPF (0-3)
[2019-06-10 14:49] LABS: ALBUMIN 3.2 GM/DL (3.2-5.2); ALT/SGPT 27 U/L (12-78); BILIRUBIN,DIRECT < 0.1 MG/DL (0.0-0.2); BILIRUBIN,TOTAL 0.7 MG/DL (0.2-1.0); BLOOD UREA NITROGEN 19 MG/DL (7-18); CALCIUM LEVEL 8.2 MG/DL (8.8-10.2); CARBON DIOXIDE LEVEL 25 MEQ/L (21-32); CHLORIDE LEVEL 103 MEQ/L (98-107); CREATININE FOR GFR 0.94 MG/DL (0.70-1.30); GLOMERULAR FILTRATION RATE > 60.0 (>42); GLUCOSE, FASTING 110 MG/DL (70-100); LIPASE 215 U/L (73-393); POTASSIUM SERUM 4.8 MEQ/L (3.5-5.1); SODIUM LEVEL 135 MEQ/L (136-145); TOTAL PROTEIN 6.4 GM/DL (6.4-8.2)
[2019-06-10] MEDS: GASTROGRAFIN SOLUTION 30ML PO SCH ×2 (16:20→16:47)
[2019-06-10] MEDS ORDERED: ISOVUE-370 76% 100ML VIAL (Q9967) As Ordered ONE (17:59)
--- NOTE | 2019-06-10 19:20 | REPVR ---
PROCEDURE INFORMATION: Exam: CT Abdomen And Pelvis With Contrast Exam date and time: 06/10/2019 6:11 PM Clinical history: 73 years old, male; Urethral discharge of feces. Evaluate for fistula. Status post prostatectomy. TECHNIQUE: Imaging protocol: Computed tomography of the abdomen and pelvis with intravenous contrast. Radiation optimization: All CT scans at this facility use at least one of these dose optimization techniques: automated exposure control; mA and/or kV adjustment per patient size (includes targeted exams where dose is matched to clinical indication); or iterative reconstruction. Contrast material: ISOVUE 370; Contrast volume: 100 ml; Contrast route: IV; COMPARISON: CT ABD PELVIS WITH CONTRAST 03/17/2019 9:49 AM FINDINGS: Liver: 0.8 cm low-density lesion in the left hepatic lobe, too small to characterize though statistically representing cyst. Punctate calcified granuloma in the right hepatic lobe. Gallbladder and bile ducts: Unremarkable. No ductal dilation. Pancreas: Unremarkable. No ductal dilation. Spleen: Unremarkable. Adrenals: Unremarkable. Kidneys and ureters: No hydronephrosis or stones. Stomach and bowel: Wall thickening and fat stranding involving the rectum, which abuts the base of the bladder. Possible 4.7 x 1.7 cm perirectal abscess between the rectum and bladder. Diverticulosis of the colon. Small bowel loops are unremarkable. Appendix: No evidence of appendicitis. Intraperitoneal space: 6.6 cm fluid density cystic lesion within the pelvis adjacent to the right inguinal canal. Vasculature: Atherosclerotic calcifications of the aorta and major branches. Lymph nodes: No enlarged lymph nodes. Bladder: Small degree of complex layering fluid within the bladder. Large degree of gas within the bladder. Reproductive: Prostate gland is surgically absent. Bones/joints: Multilevel degenerative changes of the visualized spine. No acute osseous lesion or fracture. Soft tissues: Small fat containing umbilical hernia. IMPRESSION: 1. Large degree of gas within the bladder and a small degree of complex layering fluid within the bladder. Wall thickening and fat stranding involving the rectum, which abuts the base of the bladder, suggestive of potential underlying rectovesical fistula, however it is difficult to clearly define a visible fistula without use of bladder contrast. Recommend surgical consultation and followup CT urogram, with images of the pelvis only. 2. Possible 4.7 x 1.7 cm perirectal abscess between the rectum and bladder. 3. 6.6 cm fluid density cystic lesion within the pelvis adjacent to the right inguinal canal. Findings could represent loculated right fluid containing inguinal hernia versus small focus of loculated fluid within the pelvis. 4. Other chronic findings, as above. Electronically signed by: Rojas Downey On 06/10/2019 19:20:23 PM
[2019-06-10] MEDS ORDERED: PIPERACILLIN/TAZOBACTAM SOD 3.375 GM in D5W MINI-BAG PLUS 50 ML IV ONE (20:30)
[2019-06-10] MEDS: BRIMONIDINE 0.15% OPHTH SOLN 5 ML OU SCH (21:00)
[2019-06-10] MEDS ORDERED: ACET500T15 PO (21:05)
--- NOTE | 2019-06-11 00:50 | HPEPDOC ---
General Date of Admission Jun 10, 2019 at 22:45 Date of Service: Jun 10, 2019 Attending Physician: CASIE HAY MD Chief Complaint The patient is a 73-year-old male admitted with a reason for visit of Rectal Fistula. Source: Patient Exam Limitations: No limitations Timing/Duration: 24 hours Severity: Moderate Associated Symptoms: Other (penile gas and passage of feculant material) History of Present Illness 73 yo man with history of prostate cancer who recently underwent robot assisted radical prostatectomy on 05/25 who has had an unremarkable post op course who now presents from home reporting passage of gas through his penile shaft since this morning and at noon had feculant material through his penis at which point he and his decided to present to the ED. He reports that his post op course was c/b some pelvic pain that was well managed with his prescribed pain medication that he has since weaned from and was doing well. He denies fever, chills, clots, urinary retention, abdominal pain, constipation or diarrhea and he is tolerating PO well. In the ED he was hemodynamically stable and hypertensive, afebrile and saturating well on room air. His work up was notable for WBC 10.3, mild anemia to 11.8/34.3, Cr 0.94, +UA with 2+ bacterial and 3+ leuks, 3+ blood and CT A/P that showed a evidence suggestive of a fistula between his rectum and bladder with gas and complex layering in bladder and wall thickening and fat stranding i n rectum in area that abuts the bladder, as well as a 4.7x1.7cm perirectal collection. The ED physician on noting this spoke with urology and surgery who suggested empiric antibiotics and admission to medicine with plan for surgical interventions that are to be determined. On meeting Mr. Alba, he was a pleasant gentleman who was comfortable with a grossly benign examination and a great historian who repeated the history detailed above. Home Medications Scheduled Acetaminophen (Acetaminophen) 500 Mg Tablet, 1,000 MG PO BID, (Reported) Bimatoprost (Lumigan) 0.01% 2.5ML Drops, 1 DROP OU QHS, (Reported) Brimonidine Tartrate (Alphagan P) 0.15% 5ML Drops, 1 DROP OU BID, (Reported) Gluc Mccall/Chondro Mccall A/Vit C/Mn (Glucosamine-Chondroitin Cap) 1 Each Capsule, 1 CAP PO BID, (Reported) Ipratropium/Albuterol Sulfate (Iprat-Albut 0.5-3(2.5) mg/3 ml) 3 Ml Ampul.neb, 1 JAMIE INH BID, (Reported) may use up to 4 times a day if needed Lansoprazole (Prevacid) 30 Mg Capsule.dr, 30 MG PO DAILY, (Reported) Lisinopril/Hydrochlorothiazide (Lisinopril-Hctz 20-25 mg Tab) 1 Each Tablet, 1 TAB PO DAILY, (Reported) Salmeterol/Fluticasone (Advair 500-50 Diskus) 1 Each Blst.w.dev, 1 PUFF INH BID, (Reported) Vitamin D (Vitamin D3) 1,000 Unit Tablet, 1,000 UNIT PO DAILY, (Reported) Scheduled PRN Albuterol Sulfate (Ventolin Hfa) 18 Gm Hfa.aer.ad, 2 PUFF INH q4-6h PRN for wheezing, (Reported) Allergies Coded Allergies: No Known Allergies (Unverified , 04/28/19) Past Medical History Medical History Prostate cancer GERD chronic back pain s/p laminectomies hypertension glaucoma Surgical History robot assisted radical prostatectomy laminectomies Family History Significant Family History: No pertinent family hx Social History * Smoker: Denies Alcohol: Denies Drugs: denies Recent Travel/Sick Contacts: Denies: Recent travel, Recent sick contacts Psychosocial History: No pertinent psych hx Non smoker No alcohol No illicit drug use 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 History Current/History of A-Fib/PAF?: No Current PO Anticoag Therapy: No Age/Risk Factor Scoring CHADSVASC: CHADSVASC Response (Comments) Value Age Risk Factor Age >/= 75 years old 2 Gender Risk Factor Male 0 Hx of CHF No 0 Hx of HTN Yes 1 Hx of Stroke/TIA/or VTE No 0 Hx of Diabetes No 0 Hx of Vascular Disease No 0 Total 3 Treatment Treatment ordered: NONE Reason Anticoagulant not given: Not indicated/[id number] Review of Systems Constitutional: Denies: Chills, Fever, Night Sweats Eyes: Denies: Pain, Vision change ENT: Denies: Head Aches, Ear Pain, Dysphagia Skin: Denies: Rash, Lesions, Breakdown Pulmonary: Denies: Dyspnea, Cough Cardiovascular: Denies: Chest Pain, Palpitations, Orthopnea, Paroxysmal Noc. Dyspnea, Lt Headedness Gastrointestinal: Denies: Nausea, Vomiting, Abdominal Pain, Diarrhea, Constipation, Melena, Hematochezia Genitourinary: Reports: Hematuria, Other Symptoms (has feculant material coming out of his urethra); Denies: Dysuria, Frequency, Incontinence, Retention Hematologic: Denies: Bruising, Bleeding Excessively Endocrine: Denies: Polydipsia, Polyphagia, Polyuria, Heat Intolerance, Cold Intolerance, Other Endocrine Sx Musculoskeletal: Denies: Neck Pain, Back Pain, Joint Pain, Muscle Pain, Spasms Neurological: Denies: Weakness, Numbness, Change in speech, Confusion, Seizures Psych: Reports: Mood Normal; Denies: Depression, Memory Issues Physical Examination General Exam: Positive: Alert, No Acute Distress Eye Exam: Positive: PERRLA, Conjunctiva & lids normal, EOMI; Negative: Sclera icteric ENT Exam: Positive: Atraumatic, Mucous membr. moist/pink, Pharynx Normal Neck Exam: Positive: Supple; Negative: JVD, thyromegaly Chest Exam: Positive: Clear to auscultation, Normal air movement Heart Exam: Positive: Rate Normal, Regular Rhythm, Normal S1, Normal S2; Negative: Murmurs, Rubs Abdomen Exam: Positive: Normal bowel sounds, Soft, Other (obese); Negative: Tenderness, Hepatospenomegaly Extremity Exam: Positive: Normal pulses; Negative: Clubbing, Cyanosis, Edema, Tenderness, Swelling Skin Exam: Positive: Nl turgor and temperature; Negative: Breakdown, Lesion Neuro Exam: Positive: Normal Gait, Normal Speech, Cranial Nerves 3-12 NL, Reflexes 2+ Psych Exam: Positive: Mental status NL, Mood NL, Oriented x 3 Vital Signs Vital Signs Date Time Temp Pulse Resp B/P (MAP) Pulse Ox O2 Delivery O2 Flow Rate FiO2 06/10/19 22:00 162/84 (110) 06/10/19 21:54 75 94 06/10/19 13:24 97.5 20 Room Air Laboratory Data Labs 24H Laboratory Tests 2 06/10/19 13:57: Immature Granulocyte % (Auto) 0.6, Neutrophils (%) (Auto) 70.0H, Lymphocytes (%) (Auto) 13.8L, Monocytes (%) (Auto) 7.4H, Eosinophils (%) (Auto) 7.4H, Basophils (%) (Auto) 0.8, Neutrophils # (Auto) 7.2, Lymphocytes # (Auto) 1.4L, Monocytes # (Auto) 0.8, Eosinophils # (Auto) 0.8H, Basophils # (Auto) 0.1, Nucleated Red Blo od Cells % (auto) 0.0, Urine Color SILVANA, Urine Appearance CLOUDYH, Urine pH 5.0, Urine Specific [place] 1.025, Urine Protein 1+H, Urine Glucose (Auto)(UA) NEGATIVE, Urine Ketones (Auto) NEGATIVE, Urine Blood 3+H, Urine Nitrite NEGATIVE, Urine Bilirubin NEGATIVE, Urine Urobilinogen 0.2, Urine Leukocyte Esterase (Auto) 3+H, Urine WBC (Auto) TNTCH, Urine RBC (Auto) 132H, Urine Hyaline Casts (Auto) 0, Urine Bacteria (Auto) 2+H, Urine Squamous Epithelial Cells 0, Urine Mucus (Auto) SMALL, Urine Sperm (Auto) , Anion Gap 7L, Glomerular Filtration Rate > 60.0, Calcium Level 8.2L, Total Bilirubin 0.7, Direct Bilirubin < 0.1, Aspartate Amino Transf (AST/SGOT) 28, Alanine Aminotransferase (ALT/SGPT) 27, Alkaline Phosphatase 56, Total Protein 6.4, Albumin 3.2, Albumin/Globulin Ratio 1.00, Lipase 215 CBC/BMP Laboratory Tests 06/10/19 13:57 Microbiology Microbiology 06/10/19 Blood Culture, Received Pending 06/10/19 Blood Culture, Received Pending 06/10/19 Urine Culture, Received Pending Assessment/Plan 73 yo man with prostate cancer s/p recent radical prostatectomy who presented after he noted feculent material out of his urethra with imaging showing evidence of a rectovesical fistula with presence of a collection as well within the bladder, now placed on empiric zosyn pending surgical planning by urology and surgery. Plan: Rectovesical fistula: -Urology and general surgery have been consulted -On empiric zosyn -Abdominal exam remains benign, afebrile, will monitor GERD: -protonix 40 QD, on lansoprazole at home Glaucoma: -latanoprost drops -brimonidine drops Hypertension: -HCTZ 25 QD -Lisinopril 20 QD -Vit D -Advair -Duonebs BID DVT prophylaxis: Lovenox 40 QD Diet: regular Dispo: pending surgical and urology team plans Plan / VTE VTE Prophylaxis Ordered?: Yes CASIE HAY MD Jun 11, 2019 00:50
[2019-06-11 01:07] VITALS: BP 134/81
[2019-06-11] MEDS: LATANOPROST 0.005% OPHTH SOLN 2.5 ML OU SCH ×2 (01:31→21:52)
[2019-06-11] MEDS: PIPERACILLIN/TAZOBACTAM SOD 3.375 GM in D5W MINI-BAG PLUS 50 ML IV SCH ×4 (04:03→21:34)
[2019-06-11] MEDS: ENOXAPARIN 40 MG/0.4 ML SYRINGE (J1650) SC SCH (05:36)
[2019-06-11] MEDS: ACETAMINOPHEN TAB 650MG DOSE (2X325MG) PO PRN ×2 (05:43→18:08)
[2019-06-11 06:49] VITALS: BP 156/94
[2019-06-11] MEDS: ADVAIR HFA 230/21MCG INHALER INH SCH ×2 (07:15→20:41)
[2019-06-11] MEDS: IPRATROPIUM 0.5MG/ALBUTEROL 2.5MG INH SOL UD 3ML (DUONEB)(J7620) INH SCH ×2 (07:15→20:00)
[2019-06-11 08:07] LABS: INR 1.09; PROTHROMBIN TIME 13.9 SECONDS (11.8-14.0)
[2019-06-11 08:08] LABS: PARTIAL THROMBOPLASTIN TIME 34.5 SECONDS (25.0-38.4)
[2019-06-11 08:18] LABS: BLOOD UREA NITROGEN 16 MG/DL (7-18); CALCIUM LEVEL 8.6 MG/DL (8.8-10.2); CARBON DIOXIDE LEVEL 27 MEQ/L (21-32); CHLORIDE LEVEL 102 MEQ/L (98-107); CREATININE FOR GFR 1.05 MG/DL (0.70-1.30); GLOMERULAR FILTRATION RATE > 60.0 (>42); GLUCOSE, FASTING 101 MG/DL (70-100); POTASSIUM SERUM 4.3 MEQ/L (3.5-5.1); SODIUM LEVEL 136 MEQ/L (136-145)
--- NOTE | 2019-06-11 08:32 | CR ---
DATE OF CONSULTATION: 06/10/2019 REASON FOR CONSULTATION: Probable rectovesical fistula. HISTORY OF PRESENT ILLNESS: The patient is a pleasant 73-year-old man who had undergone a robotic-assisted laparoscopic prostatectomy with bilateral pelvic lymph node dissections on the 25 of May. He apparently suffered a 3 cm rectal tear as the prostate was off of the rectal wall. This was repaired primarily by the urologist. The patient was discharged home on the 27 of May. He was seen in followup on the 06 of June and reports that he was doing well at that time. He reports he has had some urinary incontinence, but has otherwise had some ability to control his urine which has improved slightly since the surgery. On the morning of the 10 of June he noted the onset of passage of air and what looked like fecal material from the penis. This occurred several times during the morning and he presented to the emergency department for evaluation. He underwent a CT scan of the abdomen and pelvis which confirmed that the bladder was largely air-filled. There were inflammatory changes between the rectum and the bladder with some air bubbles noted in the tissues. The patient is being admitted by the hospitalist service for urology and I am asked to consult regarding management. ALLERGIES: The patient has no known drug allergies. MEDICATIONS PRIOR TO ADMISSION: Include: Tylenol as needed and albuterol inhaler as needed only, Lumigan eye drops, every night, Alphagan eye drops twice a day, glucosamine chondroitin capsules, ipratropium albuterol nebulizers four times day as needed, Prevacid, lisinopril hydrochlorothiazide one tablet daily, Advair discus one puff twice daily and some vitamin D. SURGICAL HISTORY: Is significant for a tonsillectomy in the distant past. He has had surgery on his right middle finger in 1974. He had a Ella fundoplication in 1990. He had a lumbar laminectomy in 2009 and has had bilateral laser eye surgery. He has had a number of endoscopies both upper and colonoscopies. He had his prostatectomy on May 25. MEDICAL HISTORY: Is significant for some hypertension and hyperlipidemia. He has a history of asthma. He has glaucoma. He has Palencia's esophagus and lumbar degenerative disc disease. He has prostate cancer, recently treated by prostatectomy. FAMILY HISTORY: Is noncontributory. SOCIAL HISTORY: He is a former smoker who quit many years ago. He does have some wine frequently in moderation. He is . REVIEW OF SYSTEMS: Reveals no history of chest pain or palpitations. He denies shortness of breath, cough or wheezing. He denies any abdominal pain currently though reports that if he tries to lie on his left side he gets pain in his right hip region. He has had no significant bone or joint issues. He has had no melena or hematochezia. He denies any history of deep venous thrombosis (DVT) or pulmonary embolus. There is no history of seizure or stroke or transient ischemic attack (TIA). LABORATORY STUDIES: Today in the emergency department show a white count of 10, hemoglobin of 12, hematocrit of 34 and platelet count of 313,000. Differential count shows 70% neutrophils, 14% lymphocytes, 7% monocytes and 7% eosinophils. Chemistry profile today shows a sodium of 135, potassium 4.8, chloride 103, CO2 of 25, BUN of 19, creatinine 0.9 and a glucose of 110. Liver function tests are all normal. Total protein is 6.4 with an albumin of 3.2. Urinalysis showed 3+ blood with 3+ leukocyte esterase, too numerous to count white cells. CT scan of the abdomen and pelvis was reviewed. This showed a large amount of gas in the bladder with some wall thickening of the rectum where it abutted the base of the bladder. There was evidence for inflammatory change with some air bubbles in these tissues. 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 RECOMMENDATIONS: At this point there is no need for emergency general surgery intervention. Certainly antibiotics are appropriate. A diverting colostomy to allow healing of his fistula may be appropriate but this would need to be discussed with urology. This particular cause of a fistula is not one that I have any personal experience with. I will be looking to the urologist to primarily guide management of this and I will be happy to help in whatever way I can. I will check in on the patient again tomorrow to see how he is progressing. CORINE
[2019-06-11 09:07] LABS: HEMATOCRIT 35.2 % (42.0-52.0); HEMOGLOBIN 11.8 g/dl (13.5-17.5); MEAN CORPUSCULAR HEMOGLOBIN 31.7 pg (27.0-33.0); MEAN CORPUSCULAR HGB CONC 33.5 g/dl (32.0-36.5); MEAN CORPUSCULAR VOLUME 94.6 fl (80.0-96.0); PLATELET COUNT, AUTOMATED 346 10^3/uL (150-450); RED BLOOD COUNT 3.72 10^6/uL (4.30-6.10); WHITE BLOOD COUNT 9.3 10^3/uL (4.0-10.0)
[2019-06-11 09:12] VITALS: BP 157/84
[2019-06-11] MEDS: VITAMIN D 1,000 INTERNATIONAL UNITS TABLET PO SCH (09:13)
[2019-06-11] MEDS: LISINOPRIL 20 MG TAB PO SCH (09:13)
[2019-06-11] MEDS: PANTOPRAZOLE 40MG TAB (PROTONIX) PO SCH (09:14)
[2019-06-11] MEDS: hydroCHLOROthiazide 25 MG TAB PO SCH (09:14)
[2019-06-11] MEDS: BRIMONIDINE 0.15% OPHTH SOLN 5 ML OU SCH ×2 (09:15→21:35)
--- NOTE | 2019-06-11 11:07 | CR ---
DATE OF CONSULTATION: 06/10/2019 REASON FOR CONSULTATION: Rectovesical fistula. HISTORY: Mr. 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 Margins were clear, nodes were negative. Surgery was done on 05/25/2019. The procedure was done robotically. During dissection of the rectum, the prostate was noted to be densely adherent and in developing a plane, a rectal injury was identified and closed in two layers of 2-0 Vicryl, according to Dr. Baldwin's report. The remainder of the procedure was uncomplicated, as was his hospital stay. He was dismissed on 05/27/2019, tolerating a regular diet and ambulatory about the white with indwelling Mccormack catheter. His Cruz-V[place]enor drain remained an extra day, but was noted to be consistent with peritoneal fluid only and no evidence of urine. He was seen in the office on 06/06/2019, at which time his catheter was removed and since that time he has voided with an excellent stream. This morning after taking a shower and having a normal bowel movement, he experienced pneumouria and fecaluria prompting his return to the emergency room this evening. He denies fevers or chills. He denies nausea or vomiting. He is not having any great abdominal pain other than some slight pain at one of his port sites on the right, which has been present since his surgery. CT scan done this evening showed gas in the lumen of the bladder with perivesical and perirectal inflammatory changes. There may be a small lymphocele on the right side and some collection in the pelvis. There is no evidence of free air in the abdomen. The patient has had some loose stools prior to today but did have a formal normal appearing bowel movement earlier today. He does have a past history of asthma and has been on steroids in the past but none recently. He has a remote history of smoking, ending about 10 years ago. 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 He is . OUTPATIENT MEDICATIONS: - Lumigan, which has been discontinued - glucosamine - omeprazole - meloxicam - vitamin D - Advair - DuoNeb - Lisinopril - Hydrochlorothiazide OTHER MEDICAL HISTORY: 1. Hypertension. 2. Dyslipidemia. 3. Mild reactive airway disease 4. Glaucoma. He does have a past history of Palencia's esophagus with previous esophagogastroduodenoscopy (EGD) in 2015. He has lumbar degenerative disc disease. ALLERGIES: None. OTHER SURGERIES: 1. Tonsillectomy. 2. Right hand surgery. 3. Ella fundoplication done in 1990. 4. Laminectomy. 5. Laser eye surgery. REVIEW OF SYSTEMS: Weight is stable, as is his sense of well being. He has some voluntary weight loss the past year. He denies any dyspnea or shortness of breath. He has had no wheezing today. He denies eye pain, ear pain or change in hearing or sensation. He has had no lateralizing neurologic symptoms. He denies leg swelling or pain. FAMILY HISTORY: Noncontributory. PHYSICAL EXAMINATION: The patient is awake, alert and oriented times three. Pulse 84, blood pressure 162/97, saturation 96, temperature 97.5. HEENT: Unremarkable. Pupils are equal, round and reactive to light and accommodation. NECK: Supple. CHEST: Clear. CARDIAC EXAM: Regular rate and rhythm. ABDOMEN: Soft and slightly protuberant. There is a healed midline suprapubic wound and port sites all healed. There is slight tenderness around one of the right lateral port sites but no inflammatory change noted. GENITOURINARY: Uncircumcised phallus without lesions. Descended testes without masses or tenderness. RECTAL: Not done. EXTREMITIES: No calf tenderness. He has full range of motion. NEUROLOGIC: Nonfocal. LABORATORIES: White count 10.3, hemoglobin 11.8, creatinine 0.94. Sodium 135. Urinalysis shows numerous white cells, red cells, and 2+ bacteria. IMPRESSION: 1. Status post robotic radical prostatectomy with breakdown of repair of rectal laceration and subsequent development of rectovesical fistula. PLAN: I advised general surgery involvement with the patient. As he is voiding, I would like to avoid instrumentation given his recent anastomosis and his obvious, at least partial breakdown. It is like he may need a diversionary procedure for both stool and urine. A catheter may need to be placed at that time. In the interim, VTE prophylaxis is appropriate, as are broad spectrum antibiotics pending cultures. Thank you very much for this consultation.
--- NOTE | 2019-06-11 11:32 | IPNPDOC ---
Subjective Review oF Systems Chief Complaint The patient is a 73-year-old male admitted with a reason for visit of Rectal Fistula. Events since Last Encounter Pt reports no abdominal pain, N/V or chills. Still with liquid stools and pneumaturia. Good stream. General: Denies: ROS Unobtainable, Chills, Night Sweats, Fatigue, Malaise, Normal Appetite, Other Symptoms Constitutional: Denies: Fever, Chills, Sweats, Weakness, Malaise, Other Pulmonary: Denies: Dyspnea, Cough, Pleuritic Chest Pain, Other Symptoms Objective Physical Examination General Exam: Alert, Cooperative, No Acute Distress Eye Exam: PERRLA ENT EXAM: Atraumatic Neck Exam: Supple Chest Exam: Clear to auscultation Heart Exam: Positive: Rate Normal, Regular Rhythm, Normal S1, Normal S2; Negative: Murmurs, Rubs ABDOMEN EXAM: Normal bowel sounds, Soft Vital Signs/I&O Vital Signs Date Time Temp Pulse Resp B/P (MAP) Pulse Ox O2 Delivery O2 Flow Rate FiO2 06/11/19 09:12 63 157/84 (108) 06/11/19 06:00 98.3 20 97 Room Air I&O- Last 24 Hours up to 6 AM 06/11/19 06:00 Intake Total 50 ml Balance 50 ml Laboratory Data Labs 24H Laboratory Tests 2 06/10/19 13:57: Immature Granulocyte % (Auto) 0.6, Neutrophils (%) (Auto) 70.0H, Lymphocytes (%) (Auto) 13.8L, Monocytes (%) (Auto) 7.4H, Eosinophils (%) (Auto) 7.4H, Basophils (%) (Auto) 0.8, Neutrophils # (Auto) 7.2, Lymphocytes # (Auto) 1.4L, Monocytes # (Auto) 0.8, Eosinophils # (Auto) 0.8H, Basophils # (Auto) 0.1, Nucleated Red Blood Cells % (auto) 0.0, Urine Color SILVANA, Urine Appearance CLOUDYH, Urine pH 5.0, Urine Specific [place] 1.025, Urine Protein 1+H, Urine Glucose (Auto)(UA) NEGATIVE, Urine Ketones (Auto) NEGATIVE, Urine Blood 3+H, Urine Nitrite NEGATIVE, Urine Bilirubin NEGATIVE, Urine Urobilinogen 0.2, Urine Leukocyte Esterase (Auto) 3+H, Urine WBC (Auto) TNTCH, Urine RBC (Auto) 132H, Urine Hyaline Casts (Auto) 0, Urine Bacteria (Auto) 2+H, Urine Squamous Epithelial Cells 0, Urine Mucus (Auto) SMALL, Urine Sperm (Auto) , Anion Gap 7L, Glomerular Filtration Rate > 60.0, Calcium Level 8.2L, Total Bilirubin 0.7, Direct Bilirubin < 0.1, Aspartate Amino Transf (AST/SGOT) 28, Alanine Aminotransferase (ALT/SGPT) 27, Alkaline Phosphatase 56, Total Protein 6.4, Albumin 3.2, Albumin/Globulin Ratio 1.00, Lipase 215 06/11/19 07:41: Nucleated Red Blood Cells % (auto) 0.0, Anion Gap 7L, Glomerular Filtration Rate > 60.0, Calcium Level 8.6L, Prothrombin Time 13.9, Prothromb Time International Ratio 1.09, Activated Partial Thromboplast Time 34.5 CBC/BMP Laboratory Tests 06/10/19 13:57 06/11/19 07:41 Microbiology Microbiology 06/10/19 Blood Culture, Received Pending 06/10/19 Blood Culture, Received Pending 06/10/19 Urine Culture - Final, Complete Assessment/Plan Date Seen The patient was seen on 06/11/19. Patient Summary A: Rectovesical fistula 2 weeks after RARP which was complicated by rectal laceration P: D/W Dr. aLw in Gen Surgery. The pt would most likely be best served by a diverting colostomy followed by a period of cool down with an eventual trans perineal or transanal repair. Avoid sweeney if possible - would need to be placed cystoscopically to minimize the significant risk of a sphincteric injury Plan/VTE VTE Prophylaxis Ordered?: Yes VTE Exclusion Mechanical Proph: N/A:VTE Prophy Ordered RUT FAROOQ MD Jun 11, 2019 11:01
[2019-06-11 14:00] VITALS: BP 130/52
--- NOTE | 2019-06-11 14:19 | IPNPDOC ---
Date Seen The patient was seen on 06/11/19. Progress Note SUBJECTIVE: Patient tells me that he is feeling well, he has some intermittent nausea and some pain where his previous surgical incision sites were. Otherwise denies fevers chills. otherwise patient denies chest pain, shortness breath, nausea, vomiting OBJECTIVE PHYSICAL EXAMINATION: VITAL SIGNS: Please see below. GENERAL: Pleasant morbidly obese elderly man sitting up in bed awake alert oriented speaking in complete sentences no acute distress he is accompanied by his and son HEENT: Moist mucous membranes no elevation in CVP CARDIOVASCULAR: S1 S2 regular no additional heart sounds appreciated. RESPIRATORY: Clear to auscultation bilaterally. ABDOMINAL: Bowel sounds present abdomen soft and nontender, obese previous incisions are clean dry and intact EXTREMITIES: No clubbing cyanosis or edema NEUROLOGICAL: Spontaneously moves all 4 extremities cranial 2 through 12 grossly intact no gross focal deficits appreciated PSYCHOLOGICAL: Appropriate LABORATORY DATA, MICROBIOLOGY: Please see below. IMAGING STUDIES: CT abdomen and pelvis:1. Large degree of gas within the bladder and a small degree of complex layering fluid within the bladder. Wall thickening and fat stranding involving the rectum, which abuts the base of the bladder, suggestive of potential underlying rectovesical fistula, however it is difficult to clearly define a visible fistula without use of bladder contrast. Recommend surgical consultation and followup CT urogram, with images of the pelvis only. 2. Possible 4.7 x 1.7 cm perirectal abscess between the rectum and bladder. 3. 6.6 cm fluid density cystic lesion within the pelvis adjacent to the right inguinal canal. Findings could represent loculated right fluid containing inguinal hernia versus small focus of loculated fluid within the pelvis. 4. Other chronic findings, as above. 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 PROBLEMS: 1 rectovesicular fistula: 2 weeks after robotic-assisted radical prostatectomy. Question abscess. At this time the patient appears to be hemodynamically stable and not grossly septic. Patient would certainly benefit from repair of the fistula the best means in which to pursue this endeavor is somewhat in question. There is a thought that a diverting colostomy may allow time for this fistula to heal with a reversal down the road. I spoken with both general surgery and urology today Dr. Baldwin's back tomorrow may provide further insight in how to best proceed with this particular case the time being he is on empiric Zosyn. This is a temporizing measure and the more pressing issue is the need to repair his fistula 2 gas after reflux disease: Continue with pantoprazole. 3 glaucoma: Continue with his home eyedrops. 4 hypertension: Controlled continue hydrochlorothiazide and lisinopril. 5 obstructive lung disease: Continue with Advair and DuoNeb's he is at his baseline respiratory status no active issues at this time. DVT prophylaxis: Lovenox DISPOSITION: Pending Fistula repair. This note was generated in part or whole with a voice recognition software. Voice recognition is usually quite accurate but there level vial inspector and tester errors often do occur. I apologize for any typographical errors that were not detected and corrected. VS, I&O, 24H, Fishbone Vital Signs/I&O Vital Signs Date Time Temp Pulse Resp B/P (MAP) Pulse Ox O2 Delivery O2 Flow Rate FiO2 06/11/19 09:12 63 157/84 (108) 06/11/19 06:00 98.3 20 97 Room Air I&O- Last 24 Hours up to 6 AM 06/11/19 05:59 Intake Total 50 ml Balance 50 ml Laboratory Data 24H LABS Laboratory Tests 2 06/11/19 07:41: Nucleated Red Blood Cells % (auto) 0.0, Prothrombin Time 13.9, Prothromb Time International Ratio 1.09, Activated Partial Thromboplast Time 34.5, Anion Gap 7L, Glomerular Filtration Rate > 60.0, Calcium Level 8.6L CBC/BMP Laboratory Tests 06/11/19 07:41 Microbiology Microbiology 06/10/19 Blood Culture, Received Pending 06/10/19 Blood Culture, Received Pending 06/10/19 Urine Culture - Final, Complete DAISHA MONK MD Jun 11, 2019 14:19
[2019-06-11] MEDS ORDERED: ONDANSETRON 4 MG TAB (S0181) PO ONE (20:45)
[2019-06-11 22:00] VITALS: BP 161/86
[2019-06-11 23:05] VITALS: BP 141/88
[2019-06-12] MEDS: PIPERACILLIN/TAZOBACTAM SOD 3.375 GM in D5W MINI-BAG PLUS 50 ML IV SCH ×4 (03:56→21:44)
[2019-06-12 06:00] VITALS: BP 138/79
[2019-06-12 06:47] LABS: BLOOD UREA NITROGEN 11 MG/DL (7-18); CALCIUM LEVEL 8.8 MG/DL (8.8-10.2); CARBON DIOXIDE LEVEL 28 MEQ/L (21-32); CHLORIDE LEVEL 100 MEQ/L (98-107); CREATININE FOR GFR 1.11 MG/DL (0.70-1.30); GLOMERULAR FILTRATION RATE > 60.0 (>42); GLUCOSE, FASTING 99 MG/DL (70-100); SODIUM LEVEL 135 MEQ/L (136-145)
--- NOTE | 2019-06-12 06:48 | IPN ---
DATE OF SERVICE: 06/11/2019 HISTORY: The patient was admitted yesterday with evidence of a rectovesical fistula following a radical prostatectomy approximately 2-1/2 weeks ago. He reports he still had some passage of air from the penis. He has been on a clear liquid diet today with primarily some loose stools today. There has been diminished apparent feculent material in the urine per the patient report, though he notes that there has been sort of a bloody tinge to his urine a few times. He is not having any significant abdominal pain and no fevers or chills. Vital signs show that he has been afebrile over the past 24 hours. His pulse is in the 60s to about 80. His blood pressure is good and his room air oxygen saturations are normal. Intake and output shows that he has had 2400 of oral intake today with a recorded urine output of 425, but there has been some other unrecorded voiding. PHYSICAL EXAMINATION: The patient is alert and appears comfortable. The abdomen is protuberant. He has active bowel sounds and the abdomen is soft without significant tenderness. LABORATORY STUDIES: Show a white count of 9, hemoglobin of 12, hematocrit of 35, platelet count of 346,000. Chemistry profile shows normal electrolytes with a BUN of 16, creatinine 1.0 and a glucose of 101. IMPRESSION: The patient has a rectovesical fistula following his recent prostate surgery. I spoke with Dr. Campos of urology earlier today. We discussed the issues inherent in this fistula and agreed that the patient would benefit from a diverting colostomy to limit further contamination and try to allow this fistula to heal without the need for further surgical intervention. He is going to speak with Dr. Baldwin either tonight or in the morning to get his input as he was the operating surgeon. I am going on vacation effective tomorrow morning and I am going to turn this patient over to one of my surgical colleagues. I would keep him nothing by mouth (n.p.o.) after midnight tonight in case my partner would like to proceed with the colostomy tomorrow.
[2019-06-12] MEDS: ADVAIR HFA 230/21MCG INHALER INH SCH ×2 (07:18→19:49)
[2019-06-12] MEDS: IPRATROPIUM 0.5MG/ALBUTEROL 2.5MG INH SOL UD 3ML (DUONEB)(J7620) INH SCH ×2 (08:00→20:00)
[2019-06-12] MEDS ORDERED: NS 1,000 ML IV SCH (08:00)
[2019-06-12] MEDS: BRIMONIDINE 0.15% OPHTH SOLN 5 ML OU SCH ×2 (08:23→21:44)
[2019-06-12] MEDS: LISINOPRIL 20 MG TAB PO SCH (08:30)
[2019-06-12] MEDS: hydroCHLOROthiazide 25 MG TAB PO SCH (08:30)
[2019-06-12] MEDS: PANTOPRAZOLE 40MG TAB (PROTONIX) PO SCH (08:30)
[2019-06-12] MEDS: VITAMIN D 1,000 INTERNATIONAL UNITS TABLET PO SCH (09:00)
--- NOTE | 2019-06-12 12:55 | IPNPDOC ---
Subjective Review oF Systems Chief Complaint The patient is a 73-year-old male admitted with a reason for visit of Rectal Fistula. Events since Last Encounter No acute events o/n. Patient notes very mild right upper abd pain. Denies n/v. No f/c/ns. Notes that his stools have been mostly clear liquid w/ small amounts of urine out when he voids. He had a more solid BM this morning. Objective Physical Examination General Exam: Alert, Cooperative, No Acute Distress ENT EXAM: Atraumatic Heart Exam: Positive: Regular Rhythm, Normal S1, Normal S2 ABDOMEN EXAM: Soft, Other (incisions all healing w/o drainage); No: Tenderness Skin Exam: Nl turgor and temperature Neuro Exam: Normal Speech Psych Exam: Mental status NL, Mood NL Vital Signs/I&O Vital Signs Date Time Temp Pulse Resp B/P (MAP) Pulse Ox O2 Delivery O2 Flow Rate FiO2 06/12/19 08:30 148/72 06/12/19 06:00 97.5 70 19 96 Room Air I&O- Last 24 Hours up to 6 AM 06/12/19 06:00 Intake Total 3000 ml Output Total 515 ml Balance 2485 ml Laboratory Data Labs 24H Laboratory Tests 2 06/12/19 05:57: Anion Gap 7L, Glomerular Filtration Rate > 60.0, Calcium Level 8.8 CBC/BMP Laboratory Tests 06/12/19 05:57 Microbiology Microbiology 06/10/19 Blood Culture - Preliminary, Resulted No growth after 24 hours . All specim... 06/10/19 Blood Culture - Preliminary, Resulted No growth after 24 hours . All specim... 06/10/19 Urine Culture - Final, Complete Assessment/Plan Date Seen The patient was seen on 06/12/19. Patient Summary This is a 73 y/o M who is s/p a RALP w/ BPLND on 05/25/19, now found to have a rectourethral fistula. WBC is normal. He remains afebrile. Abd exam is unremarkable. The patient has been discussed w/ Dr. Riojas w/ general surgery. The best way to manage this w/ the hope of spontaneous closure of the fistula is to divert his bowel and urine. We will therefore plan on a diverting colostomy by Dr. Riojas and a possible suprapubic catheter versus cystoscopy with catheter placement over a wire by me tomorrow. Plan/VTE VTE Prophylaxis Ordered?: Yes VTE Exclusion Mechanical Proph: N/A:VTE Prophy Ordered Plan - OR tomorrow for diverting colostomy and suprapubic catheter placement or cystoscopy w/ catheter placement over a wire tomorrow - cont zosyn - CLD - NPO at midnight MARY STATON MD Jun 12, 2019 12:55
[2019-06-12 14:00] VITALS: BP 121/77
--- NOTE | 2019-06-12 14:25 | IPNPDOC ---
Date Seen The patient was seen on 06/12/19. Progress Note SUBJECTIVE: Patient is seen and examined at the bedside this morning. He reports he is experiencing some lower right abdominal pain that he thinks is related to his NPO status before surgery today. He reports that he had 5 bowel movements last night which appeared to look like urine. Otherwise, he is not in experiencing any pain or lower abdominal pressure. He denies any nausea, vomiting or diarrheal symptoms. No fevers, chills or shortness of breath. OBJECTIVE PHYSICAL EXAMINATION: VITAL SIGNS: Please see below. GENERAL: Sitting on the edge the bed, calm, cooperative, appears stated age, in no acute distress HEENT: Moist mucus membranes, EOMI, PERRLA, neck is supple without lymph adenopathy or thyromegaly CARDIOVASCULAR: RRR, no murmurs/rubs/gallops, normal S1 and S2 RESPIRATORY: clear to auscultation bilaterally without any adventitious breath sounds appreciated ABDOMINAL: Soft, tender to palpation in the right lower quadrant, +BS, no masses or organomegaly EXTREMITIES: no clubbing/cyanosis/edema NEUROLOGICAL: CN 2-12 intact without any focal deficits appreciated PSYCHOLOGICAL: AAOx3, normal mood/affect LABORATORY DATA, IMAGING STUDIES, MICROBIOLOGY: Please see below. DVT prophylaxis ordered?: None. 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 Urology and surgery are consulted and plan to take the patient to the OR tomorrow for diverting colostomy and or urinary catheter placement for diversion. PROBLEMS: 1. Rectourethral fistula: -Urology and general surgery on board. Plan to take the patient to the OR tomorrow for suprapubic catheter placement and diverting colostomy. -Continue clear liquid diet -Continue IVF -Nothing by mouth at midnight -Continue Zosyn coverage 2. GERD: -Continue pantoprazole 3. Glaucoma: -Continue home eye drops 4. HTN: -Continue home dose HCTZ and Lisinopril 5. COPD: patient is not having any issues with breathing at this time -Continue PRN inhalers DISPOSITION: Pending procedure and postoperative care. VS, I&O, 24H, Fishbone Vital Signs/I&O Vital Signs Date Time Temp Pulse Resp B/P (MAP) Pulse Ox O2 Delivery O2 Flow Rate FiO2 06/12/19 08:30 148/72 06/12/19 06:00 97.5 70 19 96 Room Air I&O- Last 24 Hours up to 6 AM 06/12/19 05:59 Intake Total 3000 ml Output Total 465 ml Balance 2535 ml Laboratory Data 24H LABS Laboratory Tests 2 06/12/19 05:57: Anion Gap 7L, Glomerular Filtration Rate > 60.0, Calcium Level 8.8 CBC/BMP Laboratory Tests 06/12/19 05:57 Microbiology Microbiology 06/10/19 Blood Culture - Preliminary, Resulted No growth after 24 hours . All specim... 06/10/19 Blood Culture - Preliminary, Resulted No growth after 24 hours . All specim... 06/10/19 Urine Culture - Final, Complete GME ATTESTATION GME ATTESTATION I saw and evaluated the patient. I agree with the findings and plan of care as documented in the above note KOLTON DICKINSON MD Jun 12, 2019 14:25 DAISHA MONK MD Jun 21, 2019 12:05
[2019-06-12] MEDS: LATANOPROST 0.005% OPHTH SOLN 2.5 ML OU SCH (21:44)
[2019-06-12 22:00] VITALS: BP 148/76
[2019-06-13] MEDS ORDERED: NS 1,000 ML IV SCH
[2019-06-13] MEDS: PIPERACILLIN/TAZOBACTAM SOD 3.375 GM in D5W MINI-BAG PLUS 50 ML IV SCH ×4 (03:35→20:52)
[2019-06-13 05:48] LABS: HEMATOCRIT 32.6 % (42.0-52.0); HEMOGLOBIN 11.2 g/dl (13.5-17.5); MEAN CORPUSCULAR HEMOGLOBIN 32.5 pg (27.0-33.0); MEAN CORPUSCULAR HGB CONC 34.4 g/dl (32.0-36.5); MEAN CORPUSCULAR VOLUME 94.5 fl (80.0-96.0); PLATELET COUNT, AUTOMATED 279 10^3/uL (150-450); RED BLOOD COUNT 3.45 10^6/uL (4.30-6.10); WHITE BLOOD COUNT 7.4 10^3/uL (4.0-10.0)
[2019-06-13 06:00] VITALS: BP 140/75
[2019-06-13 06:11] LABS: BLOOD UREA NITROGEN 13 MG/DL (7-18); CALCIUM LEVEL 8.5 MG/DL (8.8-10.2); CARBON DIOXIDE LEVEL 27 MEQ/L (21-32); CHLORIDE LEVEL 101 MEQ/L (98-107); CREATININE FOR GFR 1.06 MG/DL (0.70-1.30); GLOMERULAR FILTRATION RATE > 60.0 (>42); GLUCOSE, FASTING 97 MG/DL (70-100); POTASSIUM SERUM 3.7 MEQ/L (3.5-5.1); SODIUM LEVEL 135 MEQ/L (136-145)
[2019-06-13] MEDS: IPRATROPIUM 0.5MG/ALBUTEROL 2.5MG INH SOL UD 3ML (DUONEB)(J7620) INH SCH ×2 (07:34→18:00)
[2019-06-13] MEDS: ADVAIR HFA 230/21MCG INHALER INH SCH ×2 (07:34→18:03)
[2019-06-13] MEDS: LISINOPRIL 20 MG TAB PO SCH (08:09)
[2019-06-13] MEDS: hydroCHLOROthiazide 25 MG TAB PO SCH (08:09)
[2019-06-13] MEDS: PANTOPRAZOLE 40MG TAB (PROTONIX) PO SCH (08:09)
[2019-06-13] MEDS: BRIMONIDINE 0.15% OPHTH SOLN 5 ML OU SCH ×2 (08:10→21:00)
[2019-06-13] MEDS: VITAMIN D 1,000 INTERNATIONAL UNITS TABLET PO SCH (08:10)
--- NOTE | 2019-06-13 11:55 | IPNPDOC ---
Date Seen The patient was seen on 06/13/19. Progress Note SUBJECTIVE: Patient is seen and examined at the bedside this morning. The abdominal pain he was experiencing yesterday has somewhat resolved and he will be going to the OR for diverting colostomy and suprapubic catheter today. He demonstrates good understanding of the procedure. He has no complaints this morning. He did have several bowel movements last night that he states were semi-formed stool. OBJECTIVE PHYSICAL EXAMINATION: VITAL SIGNS: Please see below. GENERAL: Laying in bed, calm, cooperative, appears stated age, in no acute distress HEENT: Moist mucus membranes, EOMI, PERRLA, neck is supple without lymphadenopathy or thyromegaly CARDIOVASCULAR: RRR, no murmurs/rubs/gallops, normal S1 and S2 RESPIRATORY: clear to auscultation bilaterally without any adventitious breath sounds appreciated ABDOMINAL: Soft, tender to palpation in the right lower quadrant, +BS, no masses or organomegaly EXTREMITIES: no clubbing/cyanosis/edema NEUROLOGICAL: CN 2-12 intact without any focal deficits appreciated PSYCHOLOGICAL: AAOx3, normal mood/affect LABORATORY DATA, IMAGING STUDIES, MICROBIOLOGY: Please see below. DVT prophylaxis ordered?: None. 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 Urology and surgery are consulted and plan to take the patient to the OR tomorrow for diverting colostomy and urinary catheter placement for diversion. PROBLEMS: 1. Rectourethral fistula: -Urology and general surgery on board. Plan to take the patient to the OR today for suprapubic catheter placement and diverting colostomy. -Continue clear liquid diet -Continue IVF -Nothing by mouth at midnight -Continue Zosyn coverage 2. GERD: -Continue pantoprazole 3. Glaucoma: -Continue home eye drops 4. HTN: -Continue home dose HCTZ and Lisinopril 5. COPD: patient is not having any issues with breathing at this time -Continue PRN inhalers DISPOSITION: Pending procedure and postoperative care. VS, I&O, 24H, Fishbone Vital Signs/I&O Vital Signs Date Time Temp Pulse Resp B/P (MAP) Pulse Ox O2 Delivery O2 Flow Rate FiO2 06/13/19 08:09 140/75 06/13/19 06:00 98.6 73 17 98 Room Air I&O- Last 24 Hours up to 6 AM 06/13/19 06:00 Intake Total 1445 ml Output Total 700 ml Balance 745 ml Laboratory Data 24H LABS Laboratory Tests 2 06/13/19 05:30: Nucleated Red Blood Cells % (auto) 0.0, Anion Gap 7L, Glomerular Filtration Rate > 60.0, Calcium Level 8.5L CBC/BMP Laboratory Tests 06/13/19 05:30 Microbiology Microbiology 06/10/19 Blood Culture - Preliminary, Resulted No Growth after 48 hours. All Specime... 06/10/19 Blood Culture - Preliminary, Resulted No Growth after 48 hours. All Specime... 06/10/19 Urine Culture - Final, Complete GME ATTESTATION GME ATTESTATION My faculty preceptor for this patient encounter was physically present during the encounter and was fully available. All aspects of the patient interview, examination, medical decision making process, and medical care plan development were reviewed and approved by the faculty preceptor. The faculty preceptor is aware and concurs with the plan as stated in the body of this note and will attest to such by his/her cosignature. ATTENDING NOTE I, Oumar Daniel, have independently examined this patient and performed my own physical exam, as well as reviewed the documentation and edited where necessary. I have discussed in detail with the resident / student the findings and plan of treatment as documented by the resident / student and edited their note. I agree with their findings and treatment plan and have edited their documentation. I will continue to follow the patient during this hospital stay. KOLTON DICKINSON MD Jun 13, 2019 11:55 OUMAR DANIEL MD Jun 13, 2019 15:00
--- NOTE | 2019-06-13 12:30 | IPNPDOC ---
Text Note Date of Service The patient was seen on 06/13/19. NOTE No acute events overnight. He is passing more solid stool, and his urine is clearing up some. VSSAF NAD abd - soft, NT, nd labs - below A) 73y/o male s/p rectovesicle fistula from prostatectomy 2 weeks ago P) NPO OR for diagnostic surgery, and possible colostomy creation. Virgilio Riojas DO VS,Fishbone, I+O VS, Fishbone, I+O Laboratory Tests 06/13/19 05:30 Vital Signs Date Time Temp Pulse Resp B/P (MAP) Pulse Ox O2 Delivery O2 Flow Rate FiO2 06/13/19 08:09 140/75 06/13/19 06:00 98.6 73 17 98 Room Air I&O- Last 24 Hours up to 6 AM 06/13/19 06:00 Intake Total 1445 ml Output Total 700 ml Balance 745 ml PRAVEENA RIOJAS DO Jun 13, 2019 12:29
[2019-06-13] MEDS ORDERED: ONDANSETRON 4MG/2ML VIAL (J2405) As Ordered ONE ×2 (18:15→20:21)
[2019-06-13] MEDS ORDERED: LIDOCAINE 2% INJ 100 MG/5 ML SDV (FOR ANES.) As Ordered ONE (18:15)
[2019-06-13] MEDS ORDERED: ROCURONIUM BROMIDE 50 MG/5 ML VIAL As Ordered ONE (18:15)
[2019-06-13] MEDS ORDERED: dexameTHASONE 4 MG/ML 1ML VIAL (J1100) As Ordered ONE (18:15)
[2019-06-13] MEDS ORDERED: METOCLOPRAMIDE INJ 10MG/2ML VIAL (J2765) As Ordered ONE (18:15)
[2019-06-13] MEDS ORDERED: PROPOFOL 200 MG/20 ML VIAL As Ordered ONE (18:15)
[2019-06-13] MEDS ORDERED: fentaNYL 250 MCG/5 ML INJECTION (J3010) As Ordered ONE (18:15)
[2019-06-13] MEDS ORDERED: MIDAZOLAM INJ 2 MG/2 ML VIAL (J2250) As Ordered ONE (18:15)
[2019-06-13] MEDS ORDERED: SUGAMMADEX SODIUM 500 MG/5 ML VIAL (BRIDION) As Ordered ONE (18:15)
[2019-06-13] MEDS ORDERED: PERCOCET 5MG/325MG TAB As Ordered ONE ×2 (20:20→21:13)
[2019-06-13] MEDS ORDERED: fentaNYL 100 MCG/2 ML INJECTION (J3010) As Ordered ONE (20:20)
[2019-06-13] MEDS ORDERED: ZOSYN 3.375 GM VIAL (J2543) As Ordered ONE (20:20)
[2019-06-13] MEDS: fentaNYL 100 MCG/2 ML INJECTION (J3010) IV PRN ×4 (20:25→20:44)
[2019-06-13] MEDS: PERCOCET 5MG/325MG TAB PO PRN ×2 (20:28→21:14)
[2019-06-13] MEDS ORDERED: LR 1,000 ML IV SCH (20:30)
[2019-06-13] MEDS ORDERED: ONDANSETRON 4MG/2ML VIAL (J2405) IV PRN (20:30)
[2019-06-13 20:32] LABS: HEMATOCRIT 35.9 % (42.0-52.0); HEMOGLOBIN 12.2 g/dl (13.5-17.5); MEAN CORPUSCULAR HEMOGLOBIN 32.6 pg (27.0-33.0); PLATELET COUNT, AUTOMATED 276 10^3/uL (150-450); RED BLOOD COUNT 3.74 10^6/uL (4.30-6.10); WHITE BLOOD COUNT 11.7 10^3/uL (4.0-10.0)
[2019-06-13] MEDS ORDERED: PERCOCET 5MG/325MG TAB PO PRN (20:45)
[2019-06-13 21:02] LABS: BLOOD UREA NITROGEN 13 MG/DL (7-18); CALCIUM LEVEL 8.9 MG/DL (8.8-10.2); CARBON DIOXIDE LEVEL 26 MEQ/L (21-32); CHLORIDE LEVEL 102 MEQ/L (98-107); CREATININE FOR GFR 1.03 MG/DL (0.70-1.30); GLOMERULAR FILTRATION RATE > 60.0 (>42); GLUCOSE, FASTING 96 MG/DL (70-100); POTASSIUM SERUM 3.9 MEQ/L (3.5-5.1); SODIUM LEVEL 136 MEQ/L (136-145)
[2019-06-13] MEDS ORDERED: MORPHINE 4 MG/ML 1ML VIAL/SYRINGE (J2270) As Ordered ONE (21:02)
[2019-06-13] MEDS: MORPHINE 10 MG/ML 1ML VIAL (J2270) IV PRN ×2 (21:05→21:10)
[2019-06-13 21:45] VITALS: BP 151/85
[2019-06-13 22:15] VITALS: BP 154/87
[2019-06-13] MEDS: LATANOPROST 0.005% OPHTH SOLN 2.5 ML OU SCH (22:28)
--- NOTE | 2019-06-13 22:30 | RO ---
DATE OF PROCEDURE: 06/13/2019 PREPROCEDURE DIAGNOSIS: Rectourethral fistula. POSTPROCEDURE DIAGNOSIS: Rectourethral fistula. PROCEDURE: Open cystotomy with suprapubic catheter placement, cystoscopy. SURGEON: Alex Baldwin MD LEGAL ADMINISTRATIVE ASSISTANT: None. ANESTHESIA: General. OPERATIVE INDICATIONS: This is a 73-year-old male who was recently found to have a rectourethral fistula after undergoing a robotic radical prostatectomy approximately 3 weeks ago. This patient has been passing small amounts of gas through his urethra, but he is still having normal bowel movements and the majority of his urine is also coming out of his urethra. After discussion with Dr. Riojas, General Surgery, the plan going to surgery was to do a suprapubic catheter placement if only a small urethral defect was found. If a large defect was found on cystoscopy, then the plan would be to do a suprapubic catheter placement as well as a diverting colostomy. DESCRIPTION OF PROCEDURE: The patient was brought to the operating room and general anesthesia was induced. Prophylactic antibiotics were infused. He was placed in the supine position and prepped and draped in the usual sterile fashion. At this point, a flexible cystoscope was inserted into the urethral meatus and advanced towards the bladder. At the level of the vesicourethral anastomosis, the patient appeared to have an approximately 1 cm defect posteriorly. I did not insert the scope and evaluate this area. I then inserted the scope all the way into the bladder, and with the scope in place, the bladder did distend easily. Since the defect in the urethra appeared to be small, the decision at this time was to only place a suprapubic catheter. At this point, I advanced a guidewire into the bladder and then removed the cystoscope. I then advanced an 18-Cymraes Eleva Tip catheter over the wire and into the bladder. The balloon was then filled with 10 mL of sterile water, and then the wire was removed and the catheter was connected to gravity drainage. At this point, an approximately 5-6 cm suprapubic incision was made. We then dissected down through the subcutaneous tissues. The rectus fascia was then opened using electrocautery and then the bellies of the rectus muscle were bluntly spread. At this point, the bladder was then filled with normal saline using the urethral catheter. At this point, we then entered the peritoneum as it had already been violated from his robotic surgery a few weeks ago. The bladder was then palpated and then a syringe was utilized to aspirate what appeared to be the bladder. And at this point, clear fluid did aspirate into the syringe. This confirmed we were indeed staring at the bladder. I then used a #3-[address] a pursestring stitch through the dome of the bladder. At this point, a cystotomy was then made in the middle of the pursestring stitch and then clear fluid drained out. I then inserted a #20-Cymraes catheter into the cystostomy and the balloon was filled with 7 mL of sterile water. The pursestring stitch was then tied down around the #20-Cymraes catheter. Once this was done, I then irrigated the pelvis around the bladder several times and then suctioned out the fluid. The decision at this time was also made to place a VALERIANO drain. This drain was placed just lateral to the bladder, and it was brought out through the skin on the right. Once this was done, we began closing. The drain was secured to the skin with a #2-0 nylon suture. We then closed the rectus fascia with interrupted #1 non-looped PDS sutures in a [id number] fashion. Once the fascia was closed, the subcutaneous tissues were reapproximated using interrupted #3-0 Vicryl suture. The skin was then closed around the suprapubic catheter using a running #4-0 Monocryl subcuticular suture. The suprapubic catheter was then further secured to the skin with a #2-0 Prolene suture. At this point, Dermabond and dressings were applied, and this marked the conclusion of the procedure. Both the urethral catheter and suprapubic catheter were connected to gravity drainage. The patient was then awakened from anesthesia and transported to the recovery room in stable condition. Estimated blood loss: 10 mL. Complications: None. Specimens: None. PLAN: I will leave the patient's VALERIANO drain in until there is a low output. The patient's urethral catheter will be left in for 1-2 weeks. His suprapubic catheter will be left in for at least 6-8 weeks. After approximately 6 weeks, I will get a cystogram to see if the posterior urethral defect has healed. If it has healed, I will likely leave the suprapubic catheter in for an additional 2 more weeks and then remove the suprapubic catheter. If the urethral defect has not healed by then, or if there is any sign prior to that that it is the fistula is not closing, we will set him up for a diverting colostomy. CORINE
[2019-06-13 22:45] VITALS: BP 148/88
[2019-06-13 23:45] VITALS: BP 156/89
[2019-06-14] VITALS (9 sets, daily range): BP systolic 98–149; BP diastolic 54–88
[2019-06-14] MEDS: PIPERACILLIN/TAZOBACTAM SOD 3.375 GM in D5W MINI-BAG PLUS 50 ML IV SCH ×2 (03:13→10:01)
[2019-06-14] MEDS ORDERED: PERCOCET 5MG/325MG TAB PO ONE (05:00)
[2019-06-14] MEDS: ENOXAPARIN 40 MG/0.4 ML SYRINGE (J1650) SC SCH (06:00)
[2019-06-14 06:32] LABS: HEMATOCRIT 34.5 % (42.0-52.0); HEMOGLOBIN 11.9 g/dl (13.5-17.5); MEAN CORPUSCULAR HEMOGLOBIN 32.5 pg (27.0-33.0); MEAN CORPUSCULAR HGB CONC 34.5 g/dl (32.0-36.5); MEAN CORPUSCULAR VOLUME 94.3 fl (80.0-96.0); PLATELET COUNT, AUTOMATED 289 10^3/uL (150-450); RED BLOOD COUNT 3.66 10^6/uL (4.30-6.10); WHITE BLOOD COUNT 10.7 10^3/uL (4.0-10.0)
[2019-06-14 06:52] LABS: BLOOD UREA NITROGEN 17 MG/DL (7-18); CALCIUM LEVEL 8.6 MG/DL (8.8-10.2); CARBON DIOXIDE LEVEL 24 MEQ/L (21-32); CHLORIDE LEVEL 98 MEQ/L (98-107); CREATININE FOR GFR 0.99 MG/DL (0.70-1.30); GLOMERULAR FILTRATION RATE > 60.0 (>42); GLUCOSE, FASTING 94 MG/DL (70-100); POTASSIUM SERUM 4.1 MEQ/L (3.5-5.1); SODIUM LEVEL 131 MEQ/L (136-145)
[2019-06-14] MEDS: ADVAIR HFA 230/21MCG INHALER INH SCH ×2 (07:48→20:17)
[2019-06-14] MEDS: IPRATROPIUM 0.5MG/ALBUTEROL 2.5MG INH SOL UD 3ML (DUONEB)(J7620) INH SCH ×2 (07:48→20:16)
--- NOTE | 2019-06-14 08:53 | IPNPDOC ---
Subjective Review oF Systems Chief Complaint The patient is a 73-year-old male admitted with a reason for visit of Rectal Fistula. Events since Last Encounter No acute events o/n. Good pain control w/ percocet. No n/v. No bm since surgery. No f/c/ns. Objective Physical Examination General Exam: Alert, Cooperative, No Acute Distress Heart Exam: Positive: Regular Rhythm, Normal S1, Normal S2 ABDOMEN EXAM: Soft, Other (suprapubic incision clean/dry/intact; SP catheter draining light pink urine; VALERIANO drain w/ serosang output); No: Tenderness Skin Exam: Nl turgor and temperature Neuro Exam: Normal Speech Psych Exam: Mental status NL, Mood NL Other physical findings urethral catheter draining light pink urine Vital Signs/I&O Vital Signs Date Time Temp Pulse Resp B/P (MAP) Pulse Ox O2 Delivery O2 Flow Rate FiO2 06/14/19 06:45 98.5 65 17 144/76 (98) 99 Nasal Cannula 2.0 I&O- Last 24 Hours up to 6 AM 06/14/19 06:00 Intake Total 1420 ml Output Total 1555 ml Balance -135 ml Laboratory Data Labs 24H Laboratory Tests 2 06/13/19 20:22: Nucleated Red Blood Cells % (auto) 0.0, Anion Gap 8, Glomerular Filtration Rate > 60.0, Calcium Level 8.9 06/14/19 06:09: Nucleated Red Blood Cells % (auto) 0.0, Anion Gap 9, Glomerular Filtration Rate > 60.0, Calcium Level 8.6L CBC/BMP Laboratory Tests 06/13/19 20:22 06/14/19 06:09 Microbiology Microbiology 06/10/19 Blood Culture - Preliminary, Resulted No Growth after 72 hours. All specime... 06/10/19 Blood Culture - Preliminary, Resulted No Growth after 72 hours. All specime... 06/10/19 Urine Culture - Final, Complete Assessment/Plan Date Seen The patient was seen on 06/14/19. Patient Summary This is a 73 y/o M who is s/p a RALP w/ BPLND on 05/25/19, now POD1 s/p open cystotomy w/ suprapubic catheter placement and cystoscopy for a rectourethral fistula. Cystoscopy yesterday revealed an approximately 1cm posterior defect at the vesicourethral anastomosis. Due to the small defect and the patient having normal bm's and voiding well preop, the decision was made to just divert his urine w/ a suprapubic catheter and do a diverting colostomy later on if the fistula does not heal w/ this approach. His suprapubic catheter and urethral catheter are both draining well. His VALERIANO drain had minimal output o/n. Plan/VTE VTE Prophylaxis Ordered?: Yes VTE Exclusion Mechanical Proph: N/A:VTE Prophy Ordered Plan/Urinary Catheter Urinary Catheter: Other Catheter: (both SP and urethral catheters will need to stay in for a few wks for healing of the fistula) Plan - keep both SP and urethral catheters to gravity drainage - strict I/Os - will likely stop zosyn today and put patient on cipro and flagyl for 2 wks - appreciate general surgery's assistance w/ this patient - CLD -> advance as tolerated - likely plan for discharge home tomorrow MARY STATON MD Jun 14, 2019 08:47
[2019-06-14] MEDS: PANTOPRAZOLE 40MG TAB (PROTONIX) PO SCH (10:01)
[2019-06-14] MEDS: hydroCHLOROthiazide 25 MG TAB PO SCH (10:01)
[2019-06-14] MEDS: LISINOPRIL 20 MG TAB PO SCH (10:03)
[2019-06-14] MEDS: BRIMONIDINE 0.15% OPHTH SOLN 5 ML OU SCH ×2 (10:04→21:21)
[2019-06-14] MEDS: VITAMIN D 1,000 INTERNATIONAL UNITS TABLET PO SCH (10:04)
[2019-06-14] MEDS: PERCOCET 5MG/325MG TAB PO PRN ×2 (10:41→16:52)
--- NOTE | 2019-06-14 11:55 | IPNPDOC ---
Date Seen The patient was seen on 06/14/19. Progress Note SUBJECTIVE: Patient is seen and examined at the bedside this morning. He had his procedure yesterday where a suprapubic and indwelling catheter replaced. He has some pain in his lower abdomen at the site of his suprapubic catheter. Otherwise, he is able to tolerate ice cream and soft foods without nausea. He asks for a dose of his pain medication this morning. He denies any abdominal pain. OBJECTIVE PHYSICAL EXAMINATION: VITAL SIGNS: Please see below. GENERAL: Laying in bed, calm, cooperative, appears stated age, in no acute distress HEENT: Moist mucus membranes, EOMI, PERRLA, neck is supple without lymphadenopathy or thyromegaly CARDIOVASCULAR: RRR, no murmurs/rubs/gallops, normal S1 and S2 RESPIRATORY: clear to auscultation bilaterally without any adventitious breath sounds appreciated ABDOMINAL: Soft, tender to palpation in the right lower quadrant, +BS, no masses or organomegaly, suprapubic catheter in place : Indwelling catheter in place draining yellow urine with blood tinge EXTREMITIES: no clubbing/cyanosis/edema NEUROLOGICAL: CN 2-12 intact without any focal deficits appreciated PSYCHOLOGICAL: AAOx3, normal mood/affect LABORATORY DATA, IMAGING STUDIES, MICROBIOLOGY: Please see below. DVT prophylaxis ordered?: None. 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 Urology placed a suprapubic and indwelling catheter yesterday with plan for healing of small 1 cm defect connecting bladder and rectum. PROBLEMS: 1. Rectourethral fistula: -Urology and general surgery following. Appreciate recommendations -Continue clear liquid diet and will advance as tolerated -Continue IVF -Continue Zosyn coverage for now, this will be changed to Cipro and Flagyl for 2 weeks per urology recommendations. -Continue Percocet 2 tablets every 6 hours for pain -Incentive spirometer ordered 2. GERD: -Continue pantoprazole 3. Glaucoma: -Continue home eye drops 4. HTN: -Continue home dose HCTZ and Lisinopril 5. COPD: patient is not having any issues with breathing at this time -Continue PRN inhalers DISPOSITION: Pending tolerance of diet upgrade, pain control, likely discharge tomorrow VS, I&O, 24H, Fishbone Vital Signs/I&O Vital Signs Date Time Temp Pulse Resp B/P (MAP) Pulse Ox O2 Delivery O2 Flow Rate FiO2 06/14/19 10:41 18 06/14/19 10:03 120/58 06/14/19 10:00 98.3 83 96 06/14/19 06:45 Nasal Cannula 2.0 I&O- Last 24 Hours up to 6 AM 06/14/19 06:00 Intake Total 1420 ml Output Total 1555 ml Balance -135 ml Laboratory Data 24H LABS Laboratory Tests 2 06/13/19 20:22: Nucleated Red Blood Cells % (auto) 0.0, Anion Gap 8, Glomerular Filtration Rate > 60.0, Calcium Level 8.9 06/14/19 06:09: Nucleated Red Blood Cells % (auto) 0.0, Anion Gap 9, Glomerular Filtration Rate > 60.0, Calcium Level 8.6L CBC/BMP Laboratory Tests 06/13/19 20:22 06/14/19 06:09 Microbiology Microbiology 06/10/19 Blood Culture - Preliminary, Resulted No Growth after 72 hours. All specime... 06/10/19 Blood Culture - Preliminary, Resulted No Growth after 72 hours. All specime... 06/10/19 Urine Culture - Final, Complete GME ATTESTATION GME ATTESTATION My faculty preceptor for this patient encounter was physically present during the encounter and was fully available. All aspects of the patient interview, examination, medical decision making process, and medical care plan development were reviewed and approved by the faculty preceptor. The faculty preceptor is aware and concurs with the plan as stated in the body of this note and will attest to such by his/her cosignature. ATTENDING NOTE I, Oumar Daniel, have independently examined this patient and performed my own physical exam, as well as reviewed the documentation and edited where necessary. I have discussed in detail with the resident / student the findings and plan of treatment as documented by the resident / student and edited their note. I agree with their findings and treatment plan and have edited their documentation. I will continue to follow the patient during this hospital stay. KOLTON DICKINSON MD Jun 14, 2019 11:55 OUMAR DANIEL MD Jun 14, 2019 14:32
[2019-06-14] MEDS: metroNIDAZOLE (FLAGYL) 500 MG TAB PO SCH ×2 (16:51→21:21)
[2019-06-14] MEDS: CIPROFLOXACIN 500 MG TAB PO SCH (18:08)
[2019-06-14] MEDS: DOCUSATE SODIUM 100 MG CAP PO SCH (21:21)
[2019-06-14] MEDS: LATANOPROST 0.005% OPHTH SOLN 2.5 ML OU SCH (21:21)
--- NOTE | 2019-06-14 22:08 | IPNPDOC ---
Text Note Date of Service The patient was seen on 06/14/19. NOTE No acute events overnight. He has a little lower abd pains, but overall he is feeling good. Urine output is bloody, but he does not see any air in it. Stools are still thick. VSSAF NAD abd - soft, NT, nd, dressing c/d/i labs - below A) 73y/o male s/p rectovesical fistula from prostatectomy 2 weeks ago POD#1 s/p cystoscopy with suprapubic catheter placement P) reg diet abx for one week likely d/c home tomorrow will follow as needed. Virgilio Riojas DO VS,Fishbone, I+O VS, Fishbone, I+O Laboratory Tests 06/14/19 06:09 Vital Signs Date Time Temp Pulse Resp B/P (MAP) Pulse Ox O2 Delivery O2 Flow Rate FiO2 06/14/19 20:18 63 06/14/19 17:30 20 06/14/19 16:52 Room Air 06/14/19 16:45 97.5 128/67 (87) 96 06/14/19 06:45 2.0 I&O- Last 24 Hours up to 6 AM 06/14/19 06:00 Intake Total 1420 ml Output Total 1555 ml Balance -135 ml PRAVEENA RIOJAS DO Jun 14, 2019 22:08
[2019-06-15] MEDS: PERCOCET 5MG/325MG TAB PO PRN ×3 (00:52→14:15)
[2019-06-15] MEDS: CIPROFLOXACIN 500 MG TAB PO SCH ×2 (06:01→17:28)
[2019-06-15] MEDS: ENOXAPARIN 40 MG/0.4 ML SYRINGE (J1650) SC SCH (06:01)
[2019-06-15] MEDS: metroNIDAZOLE (FLAGYL) 500 MG TAB PO SCH ×3 (06:01→21:37)
[2019-06-15 06:49] LABS: HEMOGLOBIN 11.6 g/dl (13.5-17.5); MEAN CORPUSCULAR HEMOGLOBIN 32.7 pg (27.0-33.0); MEAN CORPUSCULAR HGB CONC 34.1 g/dl (32.0-36.5); MEAN CORPUSCULAR VOLUME 95.8 fl (80.0-96.0); PLATELET COUNT, AUTOMATED 265 10^3/uL (150-450); RED BLOOD COUNT 3.55 10^6/uL (4.30-6.10); WHITE BLOOD COUNT 8.7 10^3/uL (4.0-10.0)
[2019-06-15 07:07] LABS: BLOOD UREA NITROGEN 19 MG/DL (7-18); CALCIUM LEVEL 8.6 MG/DL (8.8-10.2); CARBON DIOXIDE LEVEL 27 MEQ/L (21-32); CHLORIDE LEVEL 96 MEQ/L (98-107); CREATININE FOR GFR 1.18 MG/DL (0.70-1.30); GLOMERULAR FILTRATION RATE > 60.0 (>42); GLUCOSE, FASTING 90 MG/DL (70-100); POTASSIUM SERUM 3.2 MEQ/L (3.5-5.1); SODIUM LEVEL 132 MEQ/L (136-145)
[2019-06-15] MEDS ORDERED: POTASSIUM CHLORIDE 10 MEQ SR TABLET PO ONE (07:30)
[2019-06-15] MEDS: IPRATROPIUM 0.5MG/ALBUTEROL 2.5MG INH SOL UD 3ML (DUONEB)(J7620) INH SCH ×3 (08:00→19:54)
[2019-06-15] MEDS: hydroCHLOROthiazide 25 MG TAB PO SCH (08:04)
[2019-06-15] MEDS: PANTOPRAZOLE 40MG TAB (PROTONIX) PO SCH (08:05)
[2019-06-15] MEDS: BRIMONIDINE 0.15% OPHTH SOLN 5 ML OU SCH ×2 (08:05→21:37)
[2019-06-15] MEDS: LISINOPRIL 20 MG TAB PO SCH (08:05)
[2019-06-15] MEDS: VITAMIN D 1,000 INTERNATIONAL UNITS TABLET PO SCH (08:05)
[2019-06-15] MEDS: DOCUSATE SODIUM 100 MG CAP PO SCH ×2 (08:05→21:37)
[2019-06-15] MEDS: ADVAIR HFA 230/21MCG INHALER INH SCH ×2 (08:14→19:54)
--- NOTE | 2019-06-15 12:00 | IPNPDOC ---
Date Seen The patient was seen on 06/15/19. Progress Note SUBJECTIVE: Patient is seen and examined at the bedside this morning. Yesterday he experienced some episodes of stool in urinary catheter tubing and stool leaking around the catheter at meatus during a bowel movement attempted in the bathroom. Catheter was changed this morning and noticed some discoloration in his urine. He subsequently had a normal bowel movement this morning. Urology was made aware and is consulting with surgery for possible diverting colostomy in the near future. Patient will remain nothing by mouth until determination can be made. He is not complaining of any abdominal pain, nausea or vomiting, shortness of breath or palpitations. OBJECTIVE PHYSICAL EXAMINATION: VITAL SIGNS: Please see below. GENERAL: Laying in bed, calm, cooperative, appears stated age, in no acute distress HEENT: Moist mucus membranes, EOMI, PERRLA, neck is supple without lymphadenopathy or thyromegaly CARDIOVASCULAR: RRR, no murmurs/rubs/gallops, normal S1 and S2 RESPIRATORY: clear to auscultation bilaterally without any adventitious breath sounds appreciated ABDOMINAL: Soft, tender to palpation in the right lower quadrant, +BS, no masses or organomegaly, suprapubic catheter in place draining cloudy blood-tinged urine : Indwelling catheter in place draining yellow urine with blood tinge EXTREMITIES: no clubbing/cyanosis/edema NEUROLOGICAL: CN 2-12 intact without any focal deficits appreciated PSYCHOLOGICAL: AAOx3, normal mood/affect LABORATORY DATA, IMAGING STUDIES, MICROBIOLOGY: Please see below. DVT prophylaxis ordered?: None. 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 Urology placed a suprapubic and indwelling catheter yesterday with plan for healing of small 1 cm defect connecting bladder and rectum. PROBLEMS: 1. Rectourethral fistula: -Urology and general surgery following. Appreciate recommendations -Currently nothing by mouth until determination can be made about possibility of diverting colostomy today -Continue IVF -Continue Cipro and Flagyl for 2 weeks per urology recommendations. -Continue Percocet 2 tablets every 6 hours for pain -Continue Incentive spirometer 2. GERD: -Continue pantoprazole 3. Glaucoma: -Continue home eye drops 4. HTN: -Continue home dose HCTZ and Lisinopril 5. COPD: patient is not having any issues with breathing at this time -Continue PRN inhalers DISPOSITION: Pending urology and surgery recommendations regarding possible return to the OR for diverting colostomy today. VS, I&O, 24H, Fishbone Vital Signs/I&O Vital Signs Date Time Temp Pulse Resp B/P (MAP) Pulse Ox O2 Delivery O2 Flow Rate FiO2 06/15/19 08:34 18 Room Air 06/15/19 08:05 114/88 06/14/19 22:00 98.5 65 98 06/14/19 06:45 2.0 I&O- Last 24 Hours up to 6 AM 06/15/19 06:00 Intake Total 2040 ml Output Total 1325 ml Balance 715 ml Laboratory Data 24H LABS Laboratory Tests 2 06/15/19 06:19: Nucleated Red Blood Cells % (auto) 0.0, Anion Gap 9, Glomerular Filtration Rate > 60.0, Calcium Level 8.6L CBC/BMP Laboratory Tests 06/15/19 06:19 Microbiology Microbiology 06/10/19 Blood Culture - Preliminary, Resulted No Growth after 72 hours. All specime... 06/10/19 Blood Culture - Preliminary, Resulted No Growth after 72 hours. All specime... 06/10/19 Urine Culture - Final, Complete GME ATTESTATION GME ATTESTATION My faculty preceptor for this patient encounter was physically present during the encounter and was fully available. All aspects of the patient interview, examination, medical decision making process, and medical care plan development were reviewed and approved by the faculty preceptor. The faculty preceptor is aware and concurs with the plan as stated in the body of this note and will attest to such by his/her cosignature. ATTENDING NOTE I, Oumar Daniel, have independently examined this patient and performed my own physical exam, as well as reviewed the documentation and edited where necessary. I have discussed in detail with the resident / student the findings and plan of treatment as documented by the resident / student and edited their note. I agree with their findings and treatment plan and have edited their documentation. I will continue to follow the patient during this hospital stay. KOLTON DICKINSON MD Jun 15, 2019 12:00 OUMAR DANIEL MD Jun 15, 2019 13:59
--- NOTE | 2019-06-15 12:57 | IPNPDOC ---
Subjective Review oF Systems Chief Complaint The patient is a 73-year-old male admitted with a reason for visit of Rectal Fistula. Events since Last Encounter Patient feels well this morning. While attempting to have a bm yesterday evening, he had small amounts of stool drain down along his urethral catheter and subsequently through the urethral and suprapubic catheters. Since then he had a formed bm this morning and has been draining clearer urine through the suprapubic and urethral catheters. He has mild abd pain from his suprapubic incision. Denies n/v. No f/c/ns. Objective Physical Examination General Exam: Alert, Cooperative, No Acute Distress Heart Exam: Positive: Regular Rhythm, Normal S1, Normal S2 ABDOMEN EXAM: Soft, Other (suprapubic incision clean/dry/intact; SP catheter draining stefani colored urine; VALERIANO drain w/ serous output); No: Tenderness Skin Exam: Nl turgor and temperature Neuro Exam: Normal Speech Psych Exam: Mental status NL, Mood NL Other physical findings urethral catheter draining stefani colored urine Vital Signs/I&O Vital Signs Date Time Temp Pulse Resp B/P (MAP) Pulse Ox O2 Delivery O2 Flow Rate FiO2 06/15/19 08:34 18 Room Air 06/15/19 08:05 114/88 06/14/19 22:00 98.5 65 98 06/14/19 06:45 2.0 I&O- Last 24 Hours up to 6 AM 06/15/19 06:00 Intake Total 2040 ml Output Total 1325 ml Balance 715 ml Laboratory Data Labs 24H Laboratory Tests 2 06/15/19 06:19: Nucleated Red Blood Cells % (auto) 0.0, Anion Gap 9, Glomerular Filtration Rate > 60.0, Calcium Level 8.6L CBC/BMP Laboratory Tests 06/15/19 06:19 Microbiology Microbiology 06/10/19 Blood Culture - Preliminary, Resulted No Growth after 72 hours. All specime... 06/10/19 Blood Culture - Preliminary, Resulted No Growth after 72 hours. All specime... 06/10/19 Urine Culture - Final, Complete Assessment/Plan Date Seen The patient was seen on 06/15/19. Patient Summary This is a 73 y/o M who is s/p a RALP w/ BPLND on 05/25/19, now POD2 s/p open cystotomy w/ suprapubic catheter placement and cystoscopy for a rectourethral fistula. I discussed w/ the patient that he will still have fecaluria at times as it will take a few wks for the fistula to close (if it does close). Ideally the amount of fecaluria will decrease w/ time. We will give him a week or so to monitor this. If there is no decrease in fecaluria, then we will recommend dive rting colostomy. Plan/VTE VTE Prophylaxis Ordered?: Yes VTE Exclusion Mechanical Proph: N/A:VTE Prophy Ordered Plan/Urinary Catheter Urinary Catheter: Other Catheter: (both SP and urethral catheters will need to stay in for a few wks for healing of the fistula) Plan - keep SP catheter and urethral catheter to gravity drainage - appreciate recs from Dr. Riojas - appreciate care from hospitalist service - continue cipro and flagyl - colace - regular diet - assuming patient does well o/n, we should plan for discharge home tomorrow w/ both catheters and the VALERIANO drain MARY STATON MD Jun 15, 2019 12:57
[2019-06-15 14:00] VITALS: BP 124/79
[2019-06-15] MEDS ORDERED: PERCOCET 5MG/325MG TAB PO PRN (16:15)
[2019-06-15] MEDS: KETOROLAC 30 MG/ML VIAL (J1885) IV PRN (19:00)
[2019-06-15] MEDS: LATANOPROST 0.005% OPHTH SOLN 2.5 ML OU SCH (21:37)
[2019-06-15 22:00] VITALS: BP 122/58
[2019-06-16] MEDS: metroNIDAZOLE (FLAGYL) 500 MG TAB PO SCH (05:09)
[2019-06-16] MEDS: CIPROFLOXACIN 500 MG TAB PO SCH (05:09)
[2019-06-16] MEDS: ENOXAPARIN 40 MG/0.4 ML SYRINGE (J1650) SC SCH (05:10)
[2019-06-16] MEDS: KETOROLAC 30 MG/ML VIAL (J1885) IV PRN (05:10)
[2019-06-16 06:00] VITALS: BP 138/62
[2019-06-16 06:10] LABS: HEMATOCRIT 31.4 % (42.0-52.0); HEMOGLOBIN 10.6 g/dl (13.5-17.5); MEAN CORPUSCULAR HEMOGLOBIN 32.3 pg (27.0-33.0); MEAN CORPUSCULAR HGB CONC 33.8 g/dl (32.0-36.5); MEAN CORPUSCULAR VOLUME 95.7 fl (80.0-96.0); PLATELET COUNT, AUTOMATED 238 10^3/uL (150-450); RED BLOOD COUNT 3.28 10^6/uL (4.30-6.10); WHITE BLOOD COUNT 7.2 10^3/uL (4.0-10.0)
[2019-06-16 06:34] LABS: BLOOD UREA NITROGEN 21 MG/DL (7-18); CALCIUM LEVEL 8.8 MG/DL (8.8-10.2); CARBON DIOXIDE LEVEL 28 MEQ/L (21-32); CHLORIDE LEVEL 97 MEQ/L (98-107); CREATININE FOR GFR 1.24 MG/DL (0.70-1.30); GLOMERULAR FILTRATION RATE > 60.0 (>42); GLUCOSE, FASTING 109 MG/DL (70-100); POTASSIUM SERUM 3.5 MEQ/L (3.5-5.1); SODIUM LEVEL 131 MEQ/L (136-145)
[2019-06-16] MEDS ORDERED: NS 1,000 ML IV SCH (07:30)
[2019-06-16] MEDS: IPRATROPIUM 0.5MG/ALBUTEROL 2.5MG INH SOL UD 3ML (DUONEB)(J7620) INH SCH (08:00)
[2019-06-16] MEDS: ADVAIR HFA 230/21MCG INHALER INH SCH (08:02)
[2019-06-16] MEDS: PANTOPRAZOLE 40MG TAB (PROTONIX) PO SCH (08:21)
[2019-06-16 08:22] VITALS: BP 140/64
[2019-06-16] MEDS: hydroCHLOROthiazide 25 MG TAB PO SCH (08:22)
[2019-06-16] MEDS: DOCUSATE SODIUM 100 MG CAP PO SCH (08:22)
[2019-06-16] MEDS: BRIMONIDINE 0.15% OPHTH SOLN 5 ML OU SCH (08:22)
[2019-06-16] MEDS: VITAMIN D 1,000 INTERNATIONAL UNITS TABLET PO SCH (08:22)
[2019-06-16] MEDS: LISINOPRIL 20 MG TAB PO SCH (08:22)
--- NOTE | 2019-06-16 09:01 | IPNPDOC ---
Subjective Review oF Systems Chief Complaint The patient is a 73-year-old male admitted with a reason for visit of Rectal Fistula. Events since Last Encounter No acute events o/n. Good pain control. Patient noted that he saw 1 small piece of stool drain through 1 of the urinary catheters yesterday. Other than that they have drained clear urine. He had a loose bm yesterday. He denies n/v. No f/c. Objective Physical Examination General Exam: Alert, Cooperative, No Acute Distress Heart Exam: Positive: Regular Rhythm, Normal S1, Normal S2 ABDOMEN EXAM: Soft, Other (suprapubic incision clean/dry/intact; SP catheter draining stefani colored urine; VALERIANO drain w/ serous output); No: Tenderness Skin Exam: Nl turgor and temperature Neuro Exam: Normal Speech Psych Exam: Mental status NL, Mood NL Other physical findings urethral catheter draining stefani colored urine Vital Signs/I&O Vital Signs Date Time Temp Pulse Resp B/P (MAP) Pulse Ox O2 Delivery O2 Flow Rate FiO2 06/16/19 08:22 140/64 06/16/19 06:00 98.4 65 18 98 Room Air 06/14/19 06:45 2.0 I&O- Last 24 Hours up to 6 AM 06/16/19 05:59 Intake Total 1158 ml Output Total 2710 ml Balance -1552 ml Laboratory Data Labs 24H Laboratory Tests 2 06/16/19 05:57: Nucleated Red Blood Cells % (auto) 0.0, Anion Gap 6L, Glomerular Filtration Rate > 60.0, Calcium Level 8.8 CBC/BMP Laboratory Tests 06/16/19 05:57 Microbiology Microbiology 06/10/19 Blood Culture - Final, Complete NO GROWTH AFTER 5 DAYS 06/10/19 Blood Culture - Final, Complete NO GROWTH AFTER 5 DAYS 06/10/19 Urine Culture - Final, Complete Assessment/Plan Date Seen The patient was seen on 06/16/19. Patient Summary This is a 73 y/o M who is s/p a RALP w/ BPLND on 05/25/19, now POD3 s/p open cystotomy w/ suprapubic catheter placement and cystoscopy for a rectourethral fistula. It appears that the fecaluria is decreasing. He feels well. Plan/VTE VTE Prophylaxis Ordered?: Yes VTE Exclusion Mechanical Proph: N/A:VTE Prophy Ordered Plan/Urinary Catheter Urinary Catheter: Other Catheter: (both SP and urethral catheters will need to stay in for a few wks for healing of the fistula) Plan - ok to discharge home today w/ SP catheter, urethral catheter, and VALERIANO drain - will send scripts for cipro, flagyl, percocet, and colace - will arrange f/u w/ me next week in clinic MARY STATON MD Jun 16, 2019 09:00
[2019-06-16] MEDS ORDERED: DOCU100C16 PO (09:04)
[2019-06-16] MEDS ORDERED: FLAG500T PO (09:04)
[2019-06-16] MEDS ORDERED: PERCOCET PO (09:04)
[2019-06-16] MEDS ORDERED: CIPR-249 PO (09:04)
--- NOTE | 2019-06-16 11:02 | DS.PDOC ---
Discharge Summary General Date of Admission Jun 10, 2019 at 22:45 Date of Discharge 06/16/2019 Attending Physician: OUMAR HUGO MD Specialist/Consultants Involve: MARY STATON MD Specialist/Consultants Involve PRAVEENA MONROY (SURGERY) Discharge Summary PROCEDURES PERFORMED DURING STAY: Open cystotomy with suprapubic catheter placement, cystoscopy on 06/13/2019 ADMITTING DIAGNOSES: 1. 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 HISTORY OF PRESENT ILLNESS: 73 yo man with history of prostate cancer who recently underwent robot assisted radical prostatectomy on 05/25 who has had an unremarkable post op course who now presents from home reporting passage of gas through his penile shaft since this morning and at noon had feculant material through his penis at which point he and his decided to present to the ED. He reports that his post op course was c/b some pelvic pain that was well managed with his prescribed pain medication that he has since weaned from and was doing well. He denies fever, chills, clots, urinary retention, abdominal pain, constipation or diarrhea and he is tolerating PO well. In the ED he was hemodynamically stable and hypertensive, afebrile and saturating well on room air. His work up was notable for WBC 10.3, mild anemia to 11.8/34.3, Cr 0.94, +UA with 2+ bacterial and 3+ leuks, 3+ blood and CT A/P that showed a evidence suggestive of a fistula between his rectum and bladder with gas and complex layering in bladder and wall thickening and fat stranding in rectum in area that abuts the bladder, as well as a 4.7x1.7cm perirectal collection. The ED physician on noting this spoke with urology and surgery who suggested empiric antibiotics and admission to medicine with plan for surgical interventions that are to be determined. On meeting Mr. lAba, he was a pleasant gentleman who was comfortable with a grossly benign examination and a great historian who repeated the history detailed above. HOSPITAL COURSE: Patient was admitted, general surgery and urology were consulted, and he was started on empiric Zosyn. On day 3 of hospitalization, he was taken to the OR with plan for diversion of bowel and urine to allow spontaneous closure of the fistula. A suprapubic catheter was placed as well as an indwelling catheter for direct drainage of urine from the bladder. Immediately postoperatively the patient did have small amounts of stool in his urinary catheter, however, this resolved on postop day 2. It was decided that he could go home with both catheters in place as well as a VALERIANO drain and would follow up with Dr. Staton in the outpatient setting. The patient had no other complications and denied any more abdominal pain or nausea at the time of discharge. DISCHARGE MEDICATIONS: Please see below. ALLERGIES: Please see below. PHYSICAL EXAMINATION ON DISCHARGE: VITAL SIGNS: Please see below. GENERAL: Laying in bed, calm, cooperative, appears stated age, in no acute distress HEENT: Moist mucus membranes, EOMI, PERRLA, neck is supple without lymphadenopathy or thyromegaly CARDIOVASCULAR: RRR, no murmurs/rubs/gallops, normal S1 and S2 RESPIRATORY: clear to auscultation bilaterally without any adventitious breath sounds appreciated ABDOMINAL: Soft, tender to palpation in the right lower quadrant, +BS, no masses or organomegaly, suprapubic catheter in place draining cloudy blood-tinged urine : Indwelling catheter in place draining yellow urine with blood tinge EXTREMITIES: no clubbing/cyanosis/edema NEUROLOGICAL: CN 2-12 intact without any focal deficits appreciated PSYCHOLOGICAL: AAOx3, normal mood/affect LABORATORY DATA: Please see below. IMAGING: CT ABD/PELVIS: 1. Large degree of gas within the bladder and a small degree of complex layering fluid within the bladder. Wall thickening and fat stranding involving the rectum, which abuts the base of the bladder, suggestive of potential underlying rectovesical fistula, however it is difficult to clearly define a visible fistula without use of bladder contrast. Recommend surgical consultation and followup CT urogram, with images of the pelvis only. 2. Possible 4.7 x 1.7 cm perirectal abscess between the rectum and bladder. 3. 6.6 cm fluid density cystic lesion within the pelvis adjacent to the right inguinal canal. Findings could represent loculated right fluid containing inguinal hernia versus small focus of loculated fluid within the pelvis. 4. Other chronic findings, as above. PROGNOSIS: Fair ACTIVITY: [As tolerated]. DIET: As tolerated DISCHARGE PLAN: Home with follow-up in one week in urology office DISPOSITION: . DISCHARGE INSTRUCTIONS: 1. Please follow-up with Dr. Staton in one week in the urology office 2. Remain compliant with treatment plan and medications 3. Return to the ER if you experience any problems ITEMS TO FOLLOWUP ON ON OUTPATIENT: 1. None DISCHARGE CONDITION: [Stable]. TIME SPENT ON DISCHARGE: Greater than 30 minutes. Vital Signs/I&Os Vital Signs Date Time Temp Pulse Resp B/P (MAP) Pulse Ox O2 Delivery O2 Flow Rate FiO2 06/16/19 08:22 140/64 06/16/19 06:00 98.4 65 18 98 Room Air 06/14/19 06:45 2.0 I&O- Last 24 Hours up to 6 AM 06/16/19 06:00 Intake Total 1408 ml Output Total 2710 ml Balance -1302 ml Laboratory Data Labs 24H Laboratory Tests 2 06/16/19 05:57: Nucleated Red Blood Cells % (auto) 0.0, Anion Gap 6L, Glomerular Filtration Rate > 60.0, Calcium Level 8.8 CBC/BMP Laboratory Tests 06/16/19 05:57 Microbiology Microbiology 06/10/19 Blood Culture - Final, Complete NO GROWTH AFTER 5 DAYS 06/10/19 Blood Culture - Final, Complete NO GROWTH AFTER 5 DAYS 06/10/19 Urine Culture - Final, Complete Discharge Medications Scheduled Acetaminophen (Acetaminophen) 500 Mg Tablet, 1,000 MG PO BID, (Reported) Bimatoprost (Lumigan) 0.01% 2.5ML Drops, 1 DROP OU QHS, (Reported) Brimonidine Tartrate (Alphagan P) 0.15% 5ML Drops, 1 DROP OU BID, (Reported) Ciprofloxacin HCl (Cipro) 500 Mg Tablet, 500 MG PO BID@ Docusate Sodium (Docusate Sodium) 100 Mg Capsule, 100 MG PO BID Gluc Mccall/Chondro Mccall A/Vit C/Mn (Glucosamine-Chondroitin Cap) 1 Each Capsule, 1 CAP PO BID, (Reported) Ipratropium/Albuterol Sulfate (Iprat-Albut 0.5-3(2.5) mg/3 ml) 3 Ml Ampul.neb, 1 JAMIE INH BID, (Reported) may use up to 4 times a day if needed Lansoprazole (Prevacid) 30 Mg Capsule.dr, 30 MG PO DAILY, (Reported) Lisinopril/Hydrochlorothiazide (Lisinopril-Hctz 20-25 mg Tab) 1 Each Tablet, 1 TAB PO DAILY, (Reported) Metronidazole (Flagyl) 500 Mg Tablet, 500 MG PO Q8H Salmeterol/Fluticasone (Advair 500-50 Diskus) 1 Each Blst.w.dev, 1 PUFF INH BID, (Reported) Vitamin D (Vitamin D3) 1,000 Unit Tablet, 1,000 UNIT PO DAILY, (Reported) Scheduled PRN Albuterol Sulfate (Ventolin Hfa) 18 Gm Hfa.aer.ad, 2 PUFF INH q4-6h PRN for wheezing, (Reported) Oxycodone/Acetaminophen (Oxycodone-Acetaminophen 5-325) 1 Each Tablet, 1 TAB PO Q4HP PRN for MODERATE/SEVERE PAIN (PS 5-10) Allergies Coded Allergies: No Known Allergies (Unverified , 04/28/19) GME ATTESTATION GME ATTESTATION My faculty preceptor for this patient encounter was physically present during the encounter and was fully available. All aspects of the patient interview, examination, medical decision making process, and medical care plan development were reviewed and approved by the faculty preceptor. The faculty preceptor is aware and concurs with the plan as stated in the body of this note and will attest to such by his/her cosignature. ATTENDING NOTE I, Oumar Hugo, have independently examined this patient and performed my own physical exam, as well as reviewed the documentation and edited where necessary. I have discussed in detail with the resident / student the findings and plan of treatment as documented by the resident / student and edited their note. I agree with their findings and treatment plan and have edited their documentation. I will continue to follow the patient during this hospital stay. Time spent on discharge 36 minutes KOLTON DICKINSON MD Jun 16, 2019 11:02 OUMAR HUGO MD Jun 16, 2019 15:56
== END 2019-06-16 12:57 | disposition home or self-care (01) | DRG 663 ==
LOC: M ED 13:24 → M ED INP 22:45 → M MSPAV 06-11 00:35
PROVIDERS: ADMIT Internal Medicine; ATTEND Internal Medicine
PROC: 0TJB8ZZ Inspection of Bladder, Via Natural or Artificial Opening Endoscopic (ICD-10-PCS; 2019-06-13)
PROC: 0T9B00Z Drainage of Bladder with Drainage Device, Open Approach (ICD-10-PCS; principal; 2019-06-13 18:50)
DX: N99.89 Other postprocedural complications and disorders of genitourinary system (principal); N32.1 Vesicointestinal fistula; C61 Malignant neoplasm of prostate; K21.9 Gastro-esophageal reflux disease without esophagitis; I10 Essential (primary) hypertension; H40.9 Unspecified glaucoma; J44.9 Chronic obstructive pulmonary disease, unspecified; M51.36 Other intervertebral disc degeneration, lumbar region; K22.70 Barrett's esophagus without dysplasia; Z87.891 Personal history of nicotine dependence; Z79.899 Other long term (current) drug therapy

== ENCOUNTER → 2019-06-28 | Outpatient (CLI) | payer MEDICARE ==
[~2019-06-28] MED LIST changes: +ACET500T15 PO; +DOCU100C16 PO; +FLAG500T PO
== END ==
LOC: M SMT 10:46
PROVIDERS: ATTEND Urology
DX: C61 Malignant neoplasm of prostate (principal)

== ENCOUNTER → 2019-07-25 | Outpatient (CLI) | payer MEDICARE ==
[~2019-07-25] MED LIST changes: +CYSTO-CONRAY II 17.2% 250ML VIAL (Q9958) As Ordered ONE; +OMEP-172 PO; -OMEP20CA4 PO
--- NOTE | 2019-07-25 16:59 | REP ---
CYSTOGRAM The procedure was performed under the direct supervision of Dr. Pool. The images were reviewed with Dr. Pool. The patient arrived in the department with a suprapubic catheter in place. 250 ml of Cysto-Conray II was instilled into the bladder. The bladder is normal in position and contour. There is transient reflux in the right ureter. There is spontaneous voiding through the urethra. There is no evidence of extravasation. Impression: There is transient reflux in the right ureter. There is spontaneous voiding through the urethra. There is no evidence of extravasation. 0.7 minutes of fluoroscopy time was utilized for this procedure. Electronically Signed by BRITNEY Sosa 07/25/2019 04:06 P Electronically Signed by Osmani Pool MD 07/25/2019 04:49 P
== END ==
LOC: M RADPRO 09:06
PROVIDERS: ATTEND Urology
DX: K60.4 Rectal fistula (principal); N36.0 Urethral fistula
CPT/HCPCS: 51600; 51710; 74430; Q9958

== ENCOUNTER 2019-09-13 17:30 | Emergency (ER) | payer MEDICARE ==
[~2019-09-13] VITALS: Ht 177.8 cm; Wt 108.3 kg
[~2019-09-13 17:30] MED LIST changes: -VITA100054 PO
[2019-09-13] MEDS ORDERED: CIPROFLOXACIN 400 MG in IV 1 EA IV ONE (19:15)
--- NOTE | 2019-09-13 20:07 | REP ---
Portable chest, 07:05 p.m., single AP view with the patient upright: Comparison is 01/22/2010. The lung vo are clear. The cardiac size is normal. The margarita, mediastinum, and skeletal structures are unremarkable. Impression: Negative portable chest. There is no interval change. Electronically Signed by Osmani Hernandez MD 09/13/2019 07:58 P
[2019-09-13] MEDS ORDERED: COLA100C5 PO (20:10)
[2019-09-13] MEDS ORDERED: VITA100054 PO (20:10)
[2019-09-13 20:14] LABS: BASO % 0.2 % (0.0-1.0); HEMOGLOBIN 12.8 g/dl (13.5-17.5); LYMPH # 1.1 10^3/uL (1.5-5.0); LYMPH % 5.9 % (24.0-44.0); MEAN CORPUSCULAR HEMOGLOBIN 30.6 pg (27.0-33.0); MEAN CORPUSCULAR VOLUME 95.7 fl (80.0-96.0); MONO # 1.8 10^3/uL (0.0-0.8); MONO % 9.8 % (0.0-5.0); PLATELET COUNT, AUTOMATED 177 10^3/uL (150-450); RED BLOOD COUNT 4.18 10^6/uL (4.30-6.10); WHITE BLOOD COUNT 18.5 10^3/uL (4.0-10.0)
--- NOTE | 2019-09-13 20:19 | REPVR ---
PROCEDURE INFORMATION: Exam: US Pelvis Limited, Male Exam date and time: 09/13/2019 7:55 PM Age: 73 years old Clinical indication: Pain; Other: RT groin; Additional info: Right groin R/O hernia TECHNIQUE: Imaging protocol: Real-time pelvic ultrasound with image documentation. COMPARISON: CT ABD/PEL W/IV ORAL CONTRAS 06/10/2019 6:00 PM FINDINGS: Soft tissues: Imaging of the right inguinal region demonstrates the presence of multiple benign appearing lymph nodes measuring up to 2.2 x 0.8 cm. There is no evidence of an inguinal hernia. IMPRESSION: Unremarkable scan. No inguinal hernia demonstrated. Electronically signed by: Munir Jackson On 09/13/2019 20:19:20 PM
[2019-09-13 20:38] LABS: ALBUMIN 3.1 GM/DL (3.2-5.2); CALCIUM LEVEL 7.9 MG/DL (8.8-10.2); CREATININE FOR GFR 1.53 MG/DL (0.70-1.30); GLOMERULAR FILTRATION RATE 47.5 (>42)
[2019-09-13 21:37] VITALS: BP 118/72
== END 2019-09-13 21:56 | disposition home or self-care (01) ==
LOC: M ED 17:30
DX: N32.1 Vesicointestinal fistula (principal); N39.0 Urinary tract infection, site not specified; J45.909 Unspecified asthma, uncomplicated; I10 Essential (primary) hypertension; N28.9 Disorder of kidney and ureter, unspecified; K21.9 Gastro-esophageal reflux disease without esophagitis; Z79.899 Other long term (current) drug therapy
CPT/HCPCS: 36415; 71045; 76857; 80053; 81001; 83605; 85025; 87040; 87088; 87186; 96374; 99284; J0744

== ENCOUNTER → 2019-09-13 | Outpatient (REF) | payer MEDICARE ==
[~2019-09-13] MED LIST changes: -CYSTO-CONRAY II 17.2% 250ML VIAL (Q9958) As Ordered ONE; -OMEP-172 PO; +OMEP1CAP73 PO; +VITA100054 PO
[2019-09-13 13:45] LABS: BASO # 0.1 10^3/uL (0.0-0.2); BASO % 0.2 % (0.0-1.0); HEMATOCRIT 41.7 % (42.0-52.0); HEMOGLOBIN 13.9 g/dl (13.5-17.5); LYMPH # 1.6 10^3/uL (1.5-5.0); LYMPH % 6.5 % (24.0-44.0); MEAN CORPUSCULAR HEMOGLOBIN 31.3 pg (27.0-33.0); MEAN CORPUSCULAR HGB CONC 33.3 g/dl (32.0-36.5); MEAN CORPUSCULAR VOLUME 93.9 fl (80.0-96.0); NEUTROPHILS # 19.6 10^3/uL (1.5-8.5); NEUTROPHILS % 80.1 % (36.0-66.0); PLATELET COUNT, AUTOMATED 231 10^3/uL (150-450); RED BLOOD COUNT 4.44 10^6/uL (4.30-6.10); WHITE BLOOD COUNT 24.4 10^3/uL (4.0-10.0)
[2019-09-13 14:14] LABS: MONO # 2.7 10^3/uL (0.0-0.8)
[2019-09-13 14:16] LABS: ALBUMIN 3.5 GM/DL (3.2-5.2); BILIRUBIN,TOTAL 1.4 MG/DL (0.2-1.0); CALCIUM LEVEL 8.3 MG/DL (8.8-10.2); CREATININE FOR GFR 1.48 MG/DL (0.70-1.30); GLOMERULAR FILTRATION RATE 49.3 (>42); POTASSIUM SERUM 3.7 MEQ/L (3.5-5.1); TOTAL PROTEIN 6.8 GM/DL (6.4-8.2)
== END ==
LOC: M LABDRWAD 13:09
PROVIDERS: ATTEND Family Medicine
DX: N32.1 Vesicointestinal fistula (principal)

== ENCOUNTER → 2019-09-19 | Outpatient (CLI) | payer MEDICARE ==
[~2019-09-19] MED LIST changes: +VITA100054 PO
[2019-09-19 13:06] LABS: HEMATOCRIT 42.8 % (42.0-52.0); MEAN CORPUSCULAR HEMOGLOBIN 31.4 pg (27.0-33.0); MEAN CORPUSCULAR HGB CONC 32.7 g/dl (32.0-36.5); PLATELET COUNT, AUTOMATED 471 10^3/uL (150-450); RED BLOOD COUNT 4.46 10^6/uL (4.30-6.10); WHITE BLOOD COUNT 14.7 10^3/uL (4.0-10.0)
[2019-09-19 13:11] LABS: BLOOD UREA NITROGEN 22 MG/DL (7-18); CALCIUM LEVEL 8.7 MG/DL (8.8-10.2); CARBON DIOXIDE LEVEL 29 MEQ/L (21-32); CHLORIDE LEVEL 100 MEQ/L (98-107); CREATININE FOR GFR 1.02 MG/DL (0.70-1.30); GLOMERULAR FILTRATION RATE > 60.0 (>42); GLUCOSE, FASTING 126 MG/DL (70-100); POTASSIUM SERUM 4.1 MEQ/L (3.5-5.1); SODIUM LEVEL 136 MEQ/L (136-145)
[2019-09-19 14:09] LABS: ATYPICAL LYMPH 4 % (0-5); EOSINOPHILS 1 % (0-3); LYMPHOCYTES 12 % (16-44); METAMYELOCYTES 2 % (0-0); MONOCYTES 4 % (0-5); NEUTROPHILS 75 % (28-66); PLATELET ESTIMATE NORMAL (NORMAL)
== END ==
LOC: M PLALAB 10:11
PROVIDERS: ATTEND Urology
DX: C61 Malignant neoplasm of prostate (principal); N32.1 Vesicointestinal fistula

== ENCOUNTER → 2019-09-27 | Outpatient (CLI) | payer MEDICARE ==
[~2019-09-27] MED LIST changes: +CYSTO-CONRAY II 17.2% 250ML VIAL (Q9958) As Ordered ONE
--- NOTE | 2019-09-29 08:21 | REP ---
CYSTOGRAM The procedure was performed under the direct supervision of Dr. Hoffman. The images were reviewed with Dr. Hoffman. The patient arrived in the department with an existing suprapubic catheter. 250 ml of Cysto-Conray II was instilled into the bladder in a retrograde flow. Images demonstrate late filling of a fistulous tract from the bladder neck to the rectum. There is minimal postvoid residual. Impression: Images demonstrate late filling of a fistulous tract from the bladder neck to the rectum. 0.6 minutes of fluoroscopy time was utilized for this procedure. Electronically Signed by BRITNEY Sosa 09/28/2019 05:01 P Electronically Signed by Lucien Hoffman MD 09/29/2019 08:13 A
== END ==
LOC: M RADPRO 11:53
PROVIDERS: ATTEND Urology
DX: K60.4 Rectal fistula (principal); N36.0 Urethral fistula
CPT/HCPCS: 51600; 74430; Q9958

== ENCOUNTER → 2019-11-22 | Outpatient (CLI) | payer MEDICARE ==
--- NOTE | 2019-11-23 09:48 | REP ---
Examination Requested: Cystogram Reason For Exam: Gross hematuria The procedure was performed by BRITNEY Collazo, under the direct supervision of Dr. Pool. The images were reviewed with Dr. Pool. The patient arrived to the department with an existing suprapubic catheter. 250 ml of Cysto-Conray II was instilled into the bladder in a retrograde flow. Continued visualization under real time fluoroscopy during filling and voiding of the bladder did not demonstrate a fistula. However, post void images demonstrate a small amount of contrast in the rectum, indicating a patent fistula. Impression: 1. Small amount of contrast in the rectum indicating a patent fistula, without visualization of fistula tract. If further evaluation to visualize the location of the fistula is needed, CT cystography is recommended. 0.3 minutes of fluoroscopy time was utilized for this procedure. Some fluoroscopic images are performed with last image hold technology. These images require no additional radiation. Reviewed by BRITNEY Wright 11/22/2019 04:09 P Electronically Signed by Osmani Pool MD 11/23/2019 09:40 A
== END ==
LOC: M RADPRO 13:21
PROVIDERS: ATTEND Urology
DX: K60.4 Rectal fistula (principal); N36.0 Urethral fistula
CPT/HCPCS: 51600; 74455; Q9958

== ENCOUNTER → 2020-01-10 | Outpatient (REF) | payer MEDICARE ==
[~2020-01-10] MED LIST changes: -CYSTO-CONRAY II 17.2% 250ML VIAL (Q9958) As Ordered ONE
== END ==
LOC: M SFHCADAM 14:05
PROVIDERS: ATTEND Urology
DX: C61 Malignant neoplasm of prostate (principal)

== ENCOUNTER → 2020-01-10 | Outpatient (REF) | payer MEDICARE | LOC: M LABDRWAD 16:26 | DX: N36.0 Urethral fistula (principal); N39.0 Urinary tract infection, site not specified ==

== ENCOUNTER → 2020-01-18 | Outpatient (CLI) | payer MEDICARE | LOC: M PLALAB 10:35 | PROVIDERS: ATTEND Urology | DX: Z01.818 Encounter for other preprocedural examination (principal); Z11.59 Encounter for screening for other viral diseases; N36.0 Urethral fistula | CPT/HCPCS: 36415; U0003 ==

== ENCOUNTER → 2020-02-20 | Outpatient (CLI) | payer MEDICARE ==
[~2020-02-20] MED LIST changes: +CYSTO-CONRAY II 17.2% 250ML VIAL (Q9958) As Ordered ONE; +OMEP-218 PO; +VITAD1000T PO
--- NOTE | 2020-02-20 16:05 | REP ---
Examination Requested: Voiding cystourethrogram Reason For Exam: Rectal fistula, urethral fistula The procedure was performed by BRITNEY Collazo, under the direct supervision of Dr. Hoffman. The images were reviewed with Dr. Hoffman. Comparison was made to previous studies dated 07/25/2019, 09/27/2019 and 11/22/2019. The patient arrived to the department with an existing suprapubic catheter and Mccormack catheter for this exam. 250 ml of Cysto-Conray II was instilled into the bladder in a retrograde flow. The bladder demonstrates some mucosal irregularities. There is no evidence of a extravasation. No fistulas visualized. There is reflux on the right to the level of the mid ureter. The Mccormack catheter was removed, and the patient was asked to try and void while on the table but was unable empty his bladder completely. Impression: 1. Mucosal irregularities of the bladder. 2. Reflux on the right to the mid ureter level. 3. No evidence of extravasation, no fistula seen on today's exam. 0.4 minutes of fluoroscopy time was utilized for this procedure. Some fluoroscopic images are performed with last image hold technology. These images require no additional radiation. Reviewed by BRITNEY Wright 02/20/2020 03:36 P Electronically Signed by Lucien Hoffman MD 02/20/2020 03:54 P
== END ==
LOC: M RADPRO 13:25
PROVIDERS: ATTEND Urology
DX: N32.89 Other specified disorders of bladder (principal)
CPT/HCPCS: 51600; 74455; Q9958

== ENCOUNTER → 2020-03-26 | Outpatient (REF) | payer MEDICARE ==
[~2020-03-26] MED LIST changes: -CYSTO-CONRAY II 17.2% 250ML VIAL (Q9958) As Ordered ONE; +D31000TA2 PO; -VITAD1000T PO
== END ==
LOC: M LABDRWAD 14:58
PROVIDERS: ATTEND Urology
DX: C61 Malignant neoplasm of prostate (principal)

== ENCOUNTER → 2020-04-19 | Outpatient (CLI) | payer MEDICARE | LOC: M LABSMTC 09:52 | PROVIDERS: ATTEND Anesthesiology | DX: Z01.818 Encounter for other preprocedural examination (principal); Z11.59 Encounter for screening for other viral diseases | CPT/HCPCS: C9803; U0003 ==

== ENCOUNTER 2020-04-24 07:25 | Day surgery (SDC) | payer MEDICARE ==
[~2020-04-24] VITALS: Ht 177.8 cm; Wt 109.2 kg
[~2020-04-24 07:25] MED LIST changes: +NS 1,000 ML IV ONE
[2020-04-24] MEDS ORDERED: propofoL 500 MG/50 ML VIAL As Ordered ONE ×2 (08:37→08:53)
[2020-04-24] MEDS ORDERED: LIDOCAINE 2% 100MG/5ML SDV (FOR ANES.) As Ordered ONE (08:37)
[2020-04-24 09:30] VITALS: BP 143/88
--- NOTE | 2020-07-05 09:32 | ROOR ---
Patient Name: Ti Abla Procedure Date: 04/24/2020 7:24 AM Date of : 1945 Age: 74 Room: [facility] Gender: Male Note Status: Finalized Procedure: Colonoscopy via Stoma with Endoscopy of Siomara Pouch Indications: Preoperative assessment for colostomy take-down Providers: DO Mario Mcbride MD: Ramses Mitchell MD Requesting Provider: Medicines: Propofol per Anesthesia Complications: No immediate complications. Procedure: Pre-Anesthesia Assessment: - Prior to the procedure, a History and Physical was performed, and patient medications and allergies were reviewed. The patient is competent. The risks and benefits of the procedure and the sedation options and risks were discussed with the patient. All questions were answered and informed consent was obtained. Patient identification and proposed procedure were verified by the physician, the nurse, the anesthesiologist and the heat treat technician in the endoscopy suite. Mental Status Examination: alert and oriented. Airway Examination: normal oropharyngeal airway and neck mobility. Respiratory Examination: clear to auscultation. CV Examination: normal. Prophylactic Antibiotics: The patient does not require prophylactic antibiotics. Prior Anticoagulants: The patient has taken no previous anticoagulant or antiplatelet agents. ASA Grade Assessment: II - A patient with mild systemic disease. After reviewing the risks and benefits, the patient was deemed in satisfactory condition to undergo the procedure. The anesthesia plan was to use monitored anesthesia care (MAC). Immediately prior to administration of medications, the patient was re-assessed for adequacy to receive sedatives. The heart rate, respiratory rate, oxygen saturations, blood pressure, adequacy of pulmonary ventilation, and response to care were monitored throughout the procedure. The physical status of the patient was re-assessed after the procedure. The Colonoscope was introduced through the anus and advanced to the cecum, identified by the ileocecal valve. The procedure was performed without difficulty. The patient tolerated the procedure well. Findings: Patient is status-post diverting loop colostomy with a surgical anastomosis. A less than 5 mm polyp was found in the descending colon. The polyp was hyperplastic. The polyp was removed with a hot biopsy forceps. The polyp was removed with a jumbo cold forceps. Resection and retrieval were complete. Estimated blood loss was minimal. The exam was otherwise without abnormality. Impression: - One less than 5 mm polyp in the descending colon, removed with a jumbo cold forceps and removed with a hot biopsy forceps. Resected and retrieved. - The examination was otherwise normal. Recommendation: - Patient has a contact number available for emergencies. The signs and symptoms of potential delayed complications were discussed with the patient. Return to normal activities tomorrow. Written discharge instructions were provided to the patient. - Await pathology results. - Return to my office in 1 week. - Repeat post-surgical lower GI endoscopy in 5-10 years for surveillance based on pathology results. Osmani Riojas DO 04/24/2020 9:12:02 AM Electronically signed by Osmani Riojas DO Number of Addenda: 0 Note Initiated On: 04/24/2020 7:24 AM Estimated Blood Loss: Estimated blood loss: none. Estimated blood loss was minimal.
== END 2020-04-24 09:45 | disposition home or self-care (01) ==
LOC: M OPP 07:25
PROVIDERS: ATTEND Surgery
DX: D12.4 Benign neoplasm of descending colon (principal); Z93.3 Colostomy status; Z09 Encounter for follow-up examination after completed treatment for conditions other than malignant neoplasm; I10 Essential (primary) hypertension; Z79.899 Other long term (current) drug therapy; Z87.891 Personal history of nicotine dependence

== ENCOUNTER → 2020-07-09 | Outpatient (REF) | payer MEDICARE ==
[~2020-07-09] MED LIST changes: -NS 1,000 ML IV ONE
== END ==
LOC: M LABSMT 12:42
PROVIDERS: ATTEND Urology
DX: C61 Malignant neoplasm of prostate (principal)

== ENCOUNTER → 2020-07-09 | Outpatient (REF) | payer MEDICARE ==
[2020-07-09 13:40] LABS: HEMATOCRIT 44.9 % (42.0-52.0); HEMOGLOBIN 14.6 g/dl (13.5-17.5); MEAN CORPUSCULAR HEMOGLOBIN 31.1 pg (27.0-33.0); MEAN CORPUSCULAR HGB CONC 32.5 g/dl (32.0-36.5); MEAN CORPUSCULAR VOLUME 95.7 fl (80.0-96.0); PLATELET COUNT, AUTOMATED 223 10^3/uL (150-450); RED BLOOD COUNT 4.69 10^6/uL (4.30-6.10); WHITE BLOOD COUNT 7.4 10^3/uL (4.0-10.0)
[2020-07-09 14:14] LABS: ALT/SGPT 31 U/L (12-78); BILIRUBIN,TOTAL 0.5 MG/DL (0.2-1.0); BLOOD UREA NITROGEN 24 MG/DL (7-18); CARBON DIOXIDE LEVEL 30 MEQ/L (21-32); CHLORIDE LEVEL 103 MEQ/L (98-107); CREATININE FOR GFR 1.16 MG/DL (0.70-1.30); GLOMERULAR FILTRATION RATE > 60.0 (>42); GLUCOSE, FASTING 85 MG/DL (70-100); POTASSIUM SERUM 4.1 MEQ/L (3.5-5.1); SODIUM LEVEL 139 MEQ/L (136-145)
== END ==
LOC: M LABDRWAD 12:44
PROVIDERS: ATTEND Family Medicine
DX: Z01.818 Encounter for other preprocedural examination (principal); C61 Malignant neoplasm of prostate

== ENCOUNTER → 2020-07-11 | Outpatient (CLI) | payer MEDICARE ==
[~2020-07-11] MED LIST changes: +LIQUID POLIBAR PLUS 105% w/v 1900ML BTL As Ordered ONE
--- NOTE | 2020-07-11 18:24 | REP ---
INDICATION: URETHRAL FISTULA, RECTAL FISTULA. COMPARISON: None TECHNIQUE: The procedure was performed by Diann Rodriguez [facility], under the direct supervision of Dr. Pool. The images were reviewed with Dr. Dr. Pool. Liquid barium was instilled into the colon and retrograde flow of the barium mixture was followed to the colostomy. FINDINGS: The fuel house attendant film shows no organomegaly, or pathological masses. The intestinal gas pattern is unremarkable. This is a limited exam to evaluate for rectal urethral fistula. There is free flow of contrast to the stoma, and into the colostomy bag. Multiple diverticula are visualized. No urethral rectal fistula is visualized. There is no annular constricting lesion identified. There are no polypoid masses identified. . IMPRESSION: Limited barium enema, no urethral rectal fistula is visualized. Multiple diverticula are visualized. 0.3 minutes of fluoroscopy time was utilized for this procedure. Some fluoroscopic images are performed with last image hold technology. These images require no additional radiation <Electronically signed by Diann Rodriguez > 07/11/20 [id number] <Electronically signed by Osmani Pool > 07/11/20 [id number]
== END ==
LOC: M RAD 08:27
PROVIDERS: ATTEND Surgery
DX: N36.0 Urethral fistula (principal); K60.4 Rectal fistula; Z93.3 Colostomy status

== ENCOUNTER → 2020-07-28 | Outpatient (CLI) | payer MEDICARE ==
[~2020-07-28] MED LIST changes: -LIQUID POLIBAR PLUS 105% w/v 1900ML BTL As Ordered ONE
== END ==
LOC: M LABSMTC 09:49
PROVIDERS: ATTEND Anesthesiology
DX: Z11.59 Encounter for screening for other viral diseases (principal)

== ENCOUNTER 2020-08-02 06:00 | Inpatient (IN) | payer MEDICARE ==
--- NOTE | 2020-07-16 13:33 | HPE ---
DATE OF ANTICIPATED ADMISSION: 08/02/2020 This is a Pre-Op H&P for admission date 08/02/2020. CHIEF COMPLAINT: Diverting colostomy. HISTORY OF PRESENT ILLNESS: The patient is a 74-year-old male who presented after having a diverting colostomy done a [facility] in association with a rectourethral fistula repair. He is coming in to see me for colostomy reversal. He does not want to have to travel all the way back to [place] during a pandemic to have that completed. He has had phone calls with his surgeons down at [place] and they have agreed to his repair being done this July. He has already had a voiding cystourethrogram that showed that there was no signs of any recurrent fistula. He has also had a barium enema that was also negative for any signs of a fistula. I also took him for a colonoscopy which was negative therefore he is ready to proceed with scheduling of surgery. As of now surgery is scheduled for 08/02. He has no other complaints. He has been tolerating the colostomy without any problems. Urination is back to normal. He is able to void regularly without any need for Mccormack catheter. PAST MEDICAL HISTORY: 1. Hypertension. 2. Asthma. 3. Glaucoma. 4. Hypercholesterolemia. PAST SURGICAL HISTORY: 1. Tonsillectomy. 2. Finger surgery. 3. Back surgery. 4. Bilateral eye surgery. 5. Prostatectomy. 6. Rectourethral fistula repair. SOCIAL HISTORY: Denies drug, alcohol or tobacco abuse. FAMILY HISTORY: Noncontributory. ALLERGIES: None. HOME MEDICATIONS: Please see Med Rec. REVIEW OF SYSTEMS: Pertinent positives and negatives as stated in the HPI. PHYSICAL EXAMINATION: General: Patient is A&O times 3, in no acute distress. Vital signs are stable, afebrile. . HEENT: Pupils equal, round and reactive to light and accommodation. Heart: S1 and S2 regular rate and rhythm. Lungs: Clear to auscultation bilaterally. Abdomen: Soft, nontender, nondistended, no signs of any hernias. There is a diverting loop colostomy in the left lower quadrant. Extremities: No clubbing, cyanosis or edema. LABORATORY DATA: None at this time. IMAGING: Barium enema was completed on 07/11 that was normal. Multiple diverticula were visualized, but no signs of any fistulas. ASSESSMENT AND PLAN: Patient is a 74 -year-old male status post rectourethral fistula repair with diverting loop colostomy. He is presenting for reversal. After having approval from his surgeons at [facility] we plan to schedule this procedure in early July. Risks and benefits of procedure not limited to, but including bleeding, infection, hernia formation, anastomotic leak, damage to surrounding structures, need for further surgery were discussed in detail with the patient. Informed consent was obtained and procedure was planned. We will be planning to do a robotic assisted colostomy reversal on August 02. All of his questions are answered and he will be prepped for surgery. CORINE
[~2020-08-02] VITALS: Ht 177.8 cm; Wt 112.4 kg
[2020-08-02] MEDS ORDERED: fentaNYL 100 MCG/2 ML INJECTION (J3010) As Ordered ONE ×2 (06:53→10:13)
[2020-08-02] MEDS ORDERED: MIDAZOLAM INJ 2MG/2ML VIAL (J2250 PER 1MG) As Ordered ONE (06:53)
[2020-08-02] MEDS ORDERED: SUGAMMADEX SODIUM 500 MG/5 ML VIAL (BRIDION) As Ordered ONE (06:54)
[2020-08-02] MEDS ORDERED: dexameTHASONE 4 MG/ML 1ML VIAL (J1100 PER 1MG) As Ordered ONE (06:54)
[2020-08-02] MEDS ORDERED: LIDOCAINE 2% 100MG/5ML SDV (FOR ANES.) As Ordered ONE (06:54)
[2020-08-02] MEDS ORDERED: ROCURONIUM BROMIDE 50 MG/5 ML VIAL As Ordered ONE ×2 (06:54→08:47)
[2020-08-02] MEDS ORDERED: ONDANSETRON 4MG/2ML VIAL As Ordered ONE (06:54)
[2020-08-02] MEDS ORDERED: PHENYLephrine HCL 500 MCG/5 ML (100MCG/ML) SYRINGE (J2370) As Ordered ONE (06:54)
[2020-08-02] MEDS ORDERED: ACETAMINOPHEN 1000MG 100ML IV BTL (OFIRMEV) (J0131 PER 10MG) As Ordered ONE (06:54)
[2020-08-02] MEDS ORDERED: propofoL 200 MG/20 ML VIAL As Ordered ONE (06:54)
[2020-08-02] MEDS ORDERED: ePHEDrine SULFATE 25 MG/5 ML(5MG/ML) SYRINGE As Ordered ONE (06:54)
[2020-08-02] MEDS ORDERED: LR 1,000 ML IV ONE (07:00)
[2020-08-02] MEDS ORDERED: cefoTEtan DISODIUM 2 GM in D5W MINI-BAG PLUS 50 ML IV ONE (07:00)
[2020-08-02] MEDS ORDERED: LIDOCAINE W/EPINEPHRINE 1% 20ML VIAL As Ordered ONE (07:12)
[2020-08-02] MEDS ORDERED: KCL 20MEQ IN D5/0.45NS 1000ML 1,000 ML IV SCH (10:07)
[2020-08-02] MEDS ORDERED: PERCOCET 5MG/325MG TAB As Ordered ONE (10:13)
[2020-08-02] MEDS ORDERED: NORCO, ANEXSIA 5/325MG TABLET (HYDROcodone/ACETAMINOPHEN) PO PRN (10:15)
[2020-08-02] MEDS: fentaNYL 100 MCG/2 ML INJECTION (J3010) IV PRN ×4 (10:15→10:50)
[2020-08-02] MEDS ORDERED: ALBUTEROL 90 MCG/ACT 8GM HFA INHALER INH PRN (10:15)
[2020-08-02] MEDS ORDERED: ONDANSETRON 4MG/2ML VIAL IV PRN ×3 (10:15→12:45)
[2020-08-02] MEDS: PERCOCET 5MG/325MG TAB PO PRN ×2 (10:16→11:20)
[2020-08-02] MEDS ORDERED: LR 1,000 ML IV SCH ×2 (10:30→12:45)
[2020-08-02] MEDS ORDERED: METOCLOPRAMIDE INJ 10MG/2ML VIAL (J2765 PER 1) IV PRN ×2 (10:30→12:45)
--- NOTE | 2020-08-02 11:22 | RO ---
OPERATIVE NOTE DATE OF OPERATION: 08/02/2020 PREOPERATIVE DIAGNOSIS: Diverting colostomy. POSTOPERATIVE DIAGNOSIS: Diverting colostomy. PROCEDURE: Robotic-assisted lysis of adhesions with diverting colostomy reversal. SURGEON: Osmani Riojas DO ASSIST: Dr. Garcia, assisted with mobilization of the sigmoid colon as well as anastomosis and closure of the abdominal wall. ANESTHESIA: General. EBL: 50. COMPLICATIONS: None. 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 He also underwent a diverting colostomy at that time. He is now presenting here after proper workup from both myself and [facility] to have his diverting loop sigmoid colostomy reversed. Risks and benefits of the procedure not limited to but including bleeding, infection, hernia formation, damage to surrounding structures, and anastomotic leak were discussed in detail with the patient, informed consent was obtained and procedure was planned. PROCEDURE: The patient was brought back to operating room 7. After sufficient sedation the abdomen was sterilely prepped and draped. Time out was done to confirm proper patient, proper procedure. The 8 mm incision was made in left lower quadrant, Veress needle inserted and abdomen was insufflated to 15 mmHg. Veress needle was then removed and 8 mm Optiview port was used to gain access to the abdomen. The abdomen was entered and there were multiple midline hernias identified but spontaneously reducible. No other significant abnormalities. Two more ports were placed, one in the right mid abdomen and one in right lower quadrant. Robot was docked to the ports. From the console I was able to take down a few omental adhesions surrounding the sigmoid colon in the left lower quadrant. I then attempted to dissect circumferentially around the colostomy. However, there were significant adhesions into the subcutaneous tissue and muscle that were difficult to dissect which resulted in small hole into the colon near the colostomy itself so I decided to stop at that point and proceed from the outside. The robot was undocked and moved out of the way. 10-blade scalpel was used to make an incision around the skin surrounding the colostomy. Dissection using cautery and some blunt dissection was used to dissect through the subcutaneous tissues until the abdomen was reached. Once the entire colon was freely mobilized and I was able to pull enough outside of the abdomen the Boswell stapler 45 white load was then used to transect the mesentery of both the proximal and distal end of the loop colostomy. Two small colotomies were created and TOMAS 75 blue load stapler was used to create a [id number] anastomosis. The colotomies were then stapled off again using another blue load with TOMAS 75 stapler completing the [id number] anastomosis. A couple interrupted 3-0 Vicryl sutures were used to oversew the staple line. The staple line was then placed back inside the abdomen. 10-Occitan Jean Marie drain was placed next to it, brought out through the left upper quadrant port site. Fascia and peritoneum were then closed using running #1 PDS suture. The subcutaneous tissues were then closed after irrigation with saline using some interrupted 3-0 Vicryl sutures, skin incisions were all closed with ifeoma. Drain was sutured in place with 2-0 silk. The abdomen was cleaned and dried. 4 x 4 and tape were applied.
[2020-08-02 12:00] VITALS: BP 159/107
[2020-08-02 12:30] VITALS: BP 156/106; O2SAT 97
[2020-08-02] MEDS ORDERED: PERCOCET 5MG/325MG TAB PO PRN (12:45)
[2020-08-02] MEDS ORDERED: fentaNYL 100 MCG/2 ML INJECTION (J3010) IV PRN (12:45)
[2020-08-02 13:00] VITALS: BP 155/104
[2020-08-02 14:00] VITALS: BP 159/103
[2020-08-02] MEDS: IPRATROPIUM 0.5MG/ALBUTEROL 2.5MG INH SOL UD 3ML (DUONEB) INH SCH ×2 (14:07→18:04)
[2020-08-02] MEDS: PIPERACILLIN/TAZOBACTAM SOD 3.375 GM in D5W MINI-BAG PLUS 50 ML IV SCH ×2 (14:29→20:44)
[2020-08-02] MEDS: KETOROLAC 30 MG/ML 1ML VIAL IV PRN ×2 (15:53→23:27)
[2020-08-02] MEDS: NORCO, ANEXSIA 5/325MG TABLET (HYDROcodone/ACETAMINOPHEN) PO PRN (17:12)
[2020-08-02] MEDS: ADVAIR HFA 230/21MCG INHALER INH SCH (18:04)
[2020-08-02] MEDS: BRIMONIDINE 0.15% OPHTH SOLN 5 ML OU SCH (20:44)
[2020-08-02] MEDS: SENOKOT S TAB PO SCH (20:44)
[2020-08-02 21:00] VITALS: O2SAT 92
[2020-08-02 22:00] VITALS: BP 151/96
[2020-08-03] VITALS (7 sets, daily range): BP systolic 105–127; BP diastolic 64–90; O2SAT 90–93
[2020-08-03] MEDS: PIPERACILLIN/TAZOBACTAM SOD 3.375 GM in D5W MINI-BAG PLUS 50 ML IV SCH ×2 (02:32→08:45)
[2020-08-03] MEDS: IPRATROPIUM 0.5MG/ALBUTEROL 2.5MG INH SOL UD 3ML (DUONEB) INH SCH ×3 (05:45→18:42)
[2020-08-03] MEDS: NORCO, ANEXSIA 5/325MG TABLET (HYDROcodone/ACETAMINOPHEN) PO PRN (06:26)
[2020-08-03 06:27] LABS: HEMATOCRIT 38.6 % (42.0-52.0); HEMOGLOBIN 12.6 g/dl (13.5-17.5); MEAN CORPUSCULAR HGB CONC 32.6 g/dl (32.0-36.5); MEAN CORPUSCULAR VOLUME 94.8 fl (80.0-96.0); PLATELET COUNT, AUTOMATED 204 10^3/uL (150-450); RED BLOOD COUNT 4.07 10^6/uL (4.30-6.10); WHITE BLOOD COUNT 7.6 10^3/uL (4.0-10.0)
[2020-08-03 06:37] LABS: CREATININE FOR GFR 1.59 MG/DL (0.70-1.30)
[2020-08-03 06:38] LABS: CALCIUM LEVEL 8.2 MG/DL (8.8-10.2); GLOMERULAR FILTRATION RATE 45.3 (>42); POTASSIUM SERUM 3.8 MEQ/L (3.5-5.1)
[2020-08-03] MEDS: SENOKOT S TAB PO SCH ×2 (08:46→20:38)
[2020-08-03] MEDS: VITAMIN D 1,000 INTERNATIONAL UNITS TABLET PO SCH (08:46)
[2020-08-03] MEDS: lisinopriL 20 MG TAB PO SCH (08:46)
[2020-08-03] MEDS: OMEPRAZOLE 20 MG CAP PO SCH (08:46)
[2020-08-03] MEDS: ENOXAPARIN 40MG/0.4ML SYRINGE (J1650 PER 10MG) SC SCH (08:47)
[2020-08-03] MEDS: hydroCHLOROthiazide 25 MG TAB PO SCH (08:47)
[2020-08-03] MEDS: BRIMONIDINE 0.15% OPHTH SOLN 5 ML OU SCH ×2 (08:48→20:38)
[2020-08-03] MEDS: ADVAIR HFA 230/21MCG INHALER INH SCH ×2 (12:01→18:42)
--- NOTE | 2020-08-03 13:42 | IPN ---
PROGRESS NOTE DATE: 08/03/2020 HISTORY: Patient is postoperative day #1 from a procedure by Dr. Riojas to close his diverting colostomy. 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 This is the final step in restoring normal bowel function with closure of his colostomy. He reports he has not yet passed any gas or stool, though he can feel rumblings in his upper abdomen. He denies any nausea or vomiting. Vital signs show that he has been afebrile since his surgery yesterday. His pulse is in the 60s to low 80s, and his blood pressure is good. Intake and output show that yesterday he had 3100 in with only 260 recorded out. He had 60 mL from a drain on the left side of the abdomen yesterday with 45 recorded this morning. His urine output so far today has been 400 mL. PHYSICAL EXAMINATION: Patient is sitting propped up in his bed looking quite comfortable. He is alert and oriented. He denies much pain. Abdomen appears somewhat obese and perhaps mildly distended. He has several bandages on the left side of the abdomen, which are clean and dry. He has a drain exiting the left upper quadrant, which has a small amount of bloody fluid in the tubing and in the reservoir. He does have bowel sounds present, and the abdomen is without undue tenderness. LABORATORY STUDIES: Today show a white count of 8, hemoglobin 13, hematocrit 39, and a platelet count of 204,000. Chemistry profile shows normal electrolytes with a BUN of 20, creatinine 1.59, and a glucose of 99. IMPRESSION: Patient is doing very well postoperative day #1 from his colostomy closure. We are awaiting onset of some bowel function. PLAN: Patient will be continued on his clear liquids for now, which he appears to be taking well. I have encouraged him to be up out of bed to ambulate. If he begins passing gas and having bowel function, I will advance his diet later today. Dr. Riojas has planned for him to continue his antibiotic only until early this afternoon, and it will then be discontinued. [facility]ITAL[facility]
[2020-08-03] MEDS: KETOROLAC 30 MG/ML 1ML VIAL IV PRN (20:39)
[2020-08-04 06:00] VITALS: BP 149/75
[2020-08-04 06:45] LABS: HEMATOCRIT 38.8 % (42.0-52.0); HEMOGLOBIN 12.7 g/dl (13.5-17.5); MEAN CORPUSCULAR HEMOGLOBIN 31.4 pg (27.0-33.0); MEAN CORPUSCULAR HGB CONC 32.7 g/dl (32.0-36.5); MEAN CORPUSCULAR VOLUME 95.8 fl (80.0-96.0); PLATELET COUNT, AUTOMATED 184 10^3/uL (150-450); RED BLOOD COUNT 4.05 10^6/uL (4.30-6.10); WHITE BLOOD COUNT 7.6 10^3/uL (4.0-10.0)
[2020-08-04 07:11] LABS: BLOOD UREA NITROGEN 17 MG/DL (7-18); CALCIUM LEVEL 8.4 MG/DL (8.8-10.2); CARBON DIOXIDE LEVEL 27 MEQ/L (21-32); CHLORIDE LEVEL 104 MEQ/L (98-107); CREATININE FOR GFR 1.16 MG/DL (0.70-1.30); GLOMERULAR FILTRATION RATE > 60.0 (>42); GLUCOSE, FASTING 92 MG/DL (70-100); POTASSIUM SERUM 3.6 MEQ/L (3.5-5.1); SODIUM LEVEL 136 MEQ/L (136-145)
[2020-08-04] MEDS: IPRATROPIUM 0.5MG/ALBUTEROL 2.5MG INH SOL UD 3ML (DUONEB) INH SCH ×3 (07:27→17:54)
[2020-08-04] MEDS: ADVAIR HFA 230/21MCG INHALER INH SCH ×2 (07:27→17:55)
[2020-08-04] MEDS: ENOXAPARIN 40MG/0.4ML SYRINGE (J1650 PER 10MG) SC SCH (09:15)
[2020-08-04] MEDS: lisinopriL 20 MG TAB PO SCH (09:16)
[2020-08-04] MEDS: hydroCHLOROthiazide 25 MG TAB PO SCH (09:16)
[2020-08-04] MEDS: OMEPRAZOLE 20 MG CAP PO SCH (09:16)
[2020-08-04] MEDS: SENOKOT S TAB PO SCH ×2 (09:16→20:01)
[2020-08-04] MEDS: NORCO, ANEXSIA 5/325MG TABLET (HYDROcodone/ACETAMINOPHEN) PO PRN ×2 (09:17→17:29)
[2020-08-04] MEDS: VITAMIN D 1,000 INTERNATIONAL UNITS TABLET PO SCH (09:17)
[2020-08-04] MEDS: BRIMONIDINE 0.15% OPHTH SOLN 5 ML OU SCH ×2 (09:19→20:01)
[2020-08-04 14:00] VITALS: BP 136/88
[2020-08-04] MEDS: KETOROLAC 30 MG/ML 1ML VIAL IV PRN (20:02)
--- NOTE | 2020-08-04 20:45 | IPN ---
PROGRESS NOTE DATE: 08/04/2020 HISTORY: Patient is postoperative day #2 from closure of his diverting colostomy after repair of his urethrorectal fistula. He has been tolerating clear liquids. He reports that early this morning he had his first small bowel movement of a small amount of formed stool and then had a rather larger liquid stool later this morning. He has been passing a moderate amount of gas. He has tolerated the liquids well and is voiding well. VITAL SIGNS: Show that he has been afebrile with a pulse in the 70s generally and a good blood pressure. Intake and output shows that yesterday he had 2300 in with 600 of urine recorded and 115 from his drain. His voids are not being routinely measured I believe. PHYSICAL EXAMINATION: Patient is a pleasant gentleman lying quietly in the hospital bed. He is alert and oriented. Skin is warm and dry. Heart exam shows a regular rhythm. The lungs are generally clear though the breath sounds are a little distant. The abdomen is obese but also protuberant, he has active bowel sounds. There is some tympany to percussion across the upper mid abdomen but he does not have significant tenderness out of proportion to his recent surgery. His dressings are dry and his drain has a small amount of lightly bloody fluid in the tubing and in the container. LABORATORY STUDIES: Show a white count of 8, hemoglobin 13, hematocrit of 39, and a platelet count of 184,000. These are not changed from yesterday. Chemistry profile shows normal electrolytes, BUN 17, creatinine 1.1, and a glucose of 92. IMPRESSION: Patient is doing well now 2 days postoperative from his colostomy closure. He is passing some flatus and has had some loose stool. He denies any nausea or vomiting. PLAN: I will advance him to a regular diet. I discussed with him that he should begin slowly and not feel pressured to eat more than he feels comfortable with. His IV has been saline locked. His antibiotics were finished yesterday and he is back on most of his usual medications. He is taking [place] periodically for discomfort.
[2020-08-04 21:00] VITALS: BP 134/84; O2SAT 93
[2020-08-04 22:00] VITALS: BP 126/51
[2020-08-05 06:00] VITALS: BP 168/72
[2020-08-05 06:16] LABS: HEMATOCRIT 38.8 % (42.0-52.0); HEMOGLOBIN 13.2 g/dl (13.5-17.5); MEAN CORPUSCULAR HEMOGLOBIN 32.3 pg (27.0-33.0); MEAN CORPUSCULAR VOLUME 94.9 fl (80.0-96.0); PLATELET COUNT, AUTOMATED 195 10^3/uL (150-450); RED BLOOD COUNT 4.09 10^6/uL (4.30-6.10); WHITE BLOOD COUNT 5.8 10^3/uL (4.0-10.0)
[2020-08-05] MEDS: NORCO, ANEXSIA 5/325MG TABLET (HYDROcodone/ACETAMINOPHEN) PO PRN (06:28)
[2020-08-05 06:47] LABS: BLOOD UREA NITROGEN 19 MG/DL (7-18); CALCIUM LEVEL 8.3 MG/DL (8.8-10.2); CARBON DIOXIDE LEVEL 28 MEQ/L (21-32); CHLORIDE LEVEL 104 MEQ/L (98-107); CREATININE FOR GFR 1.08 MG/DL (0.70-1.30); GLOMERULAR FILTRATION RATE > 60.0 (>42); GLUCOSE, FASTING 93 MG/DL (70-100); POTASSIUM SERUM 3.5 MEQ/L (3.5-5.1); SODIUM LEVEL 137 MEQ/L (136-145)
[2020-08-05] MEDS: ADVAIR HFA 230/21MCG INHALER INH SCH (07:39)
[2020-08-05] MEDS: IPRATROPIUM 0.5MG/ALBUTEROL 2.5MG INH SOL UD 3ML (DUONEB) INH SCH (07:39)
[2020-08-05] MEDS ORDERED: HYDR-3715 PO (08:39)
[2020-08-05] MEDS: ENOXAPARIN 40MG/0.4ML SYRINGE (J1650 PER 10MG) SC SCH (09:00)
[2020-08-05] MEDS: SENOKOT S TAB PO SCH (10:24)
[2020-08-05] MEDS: hydroCHLOROthiazide 25 MG TAB PO SCH (10:24)
[2020-08-05] MEDS: OMEPRAZOLE 20 MG CAP PO SCH (10:24)
[2020-08-05] MEDS: VITAMIN D 1,000 INTERNATIONAL UNITS TABLET PO SCH (10:24)
[2020-08-05] MEDS: BRIMONIDINE 0.15% OPHTH SOLN 5 ML OU SCH (10:25)
[2020-08-05 10:28] VITALS: BP 140/90
[2020-08-05] MEDS: lisinopriL 20 MG TAB PO SCH (10:28)
== END 2020-08-05 10:53 | disposition home or self-care (01) | DRG 331 ==
LOC: M OR 06:00 → M MSPAV 11:44
PROVIDERS: ADMIT Surgery; ATTEND Surgery
PROC: 0DBN0ZZ Excision of Sigmoid Colon, Open Approach (ICD-10-PCS; principal; 2020-08-02 07:30)
DX: Z43.3 Encounter for attention to colostomy (principal); I10 Essential (primary) hypertension; J45.909 Unspecified asthma, uncomplicated; H40.9 Unspecified glaucoma; E78.00 Pure hypercholesterolemia, unspecified; Z53.31 Laparoscopic surgical procedure converted to open procedure

== ENCOUNTER → 2020-10-10 | Outpatient (REF) | payer MEDICARE ==
[~2020-10-10] MED LIST changes: +HYDR-3715 PO
== END ==
LOC: M SFHCADAM 14:07
PROVIDERS: ATTEND Urology
DX: C61 Malignant neoplasm of prostate (principal)

== ENCOUNTER → 2020-10-16 | Outpatient (CLI) | payer MEDICARE ==
--- NOTE | 2020-10-16 17:02 | REP ---
INDICATION: VENTRAL HERNIA W/O OBST OR GANGRENE. COMPARISON: CT 06/10/2019 TECHNIQUE: Noncontrast scanning with coronal and sagittal reconstructions through the abdomen and pelvis. FINDINGS: CT abdomen: Lung bases are clear. Small hiatal hernia is noted. Stomach collapsed. Heart not enlarged. There is no pericardial thickening or effusion. No gross hepatomegaly with vertical diameter the liver 17.7 cm in the mid clavicular line. 1 punctate calcification in the right lobe of the liver unchanged. One cm sized low-density nodule in the left lobe of the liver consistent with a small benign finding, likely a stable cyst. No splenomegaly or focal splenic lesion. There is a small splenule adjacent to the spleen. No adjacent ascites in the upper abdomen. Gallbladder well filled without calcified stone or mass. Pancreas shows no mass, ductal dilatation, calcification or peripancreatic fluid/adenopathy. Adrenal glands are normal. There is atherosclerotic calcification of the aorta and major branches without aneurysm. Calcifications in renal arteries noted but no renal stone, hydronephrosis, mass or cyst. Small bowel loops are contrast filled. Colon shows anastomotic suture line in the left mid abdomen without inflammatory changes adjacent. Diverticulosis of the distal left colon and sigmoid without diverticulitis. A ventral abdominal wall hernia about 7.7 cm transverse by 6.2 cm vertical. There are small bowel loops within which are not strangulated with normal caliber before and after the hernia. Mostly omental fat is within this hernia which is Loan/supraumbilical there is a healed ostomy takedown in the left rectus lateral and inferior to the hernia. All of this is new compared to the CT from 16 months ago. Bone windows show vacuum phenomenon at the 4 lower most levels with disc space narrowing, endplate sclerosis and spurs. No compression fractures. No postsurgical changes from prior laminectomy at L4-5 and L5-S1. The bone graft fusion of those posterior elements noted. No ascites or free air. CT pelvis: The sacrum pelvis and hips are without fracture there is sclerosis the inferior SI joints and degenerative changes of the hips as well. Vascular calcifications iliac and femoral arteries. Distal left colonic and sigmoid diverticulosis without diverticulitis no ventral or inguinal hernia nor pathologic inguinal adenopathy the bladder is without mass, stone or air within it on this study. Rectum shows no gross mass or evidence of a fistulous communication to the bladder. No pelvic free fluid or adenopathy. No inguinal adenopathy or mass. No pelvic ventral hernia. IMPRESSION: 1. Anastomosis in the left colon appears unremarkable and with prior ostomy take-down evident and healed. 2. There is a periumbilical/supraumbilical hernia with a gap 7.7 x 6.2 cm and omental fat and small bowel loops within. No strangulation. No other contents to the hernia. 3. Simple cyst left hepatic lobe and a single calcification in the right unchanged. Small hiatal hernia. Gallbladder, spleen, pancreas and adrenal glands normal. Kidneys without acute finding. 4. No pelvic free fluid, mass, evidence for fistulous communication or other acute finding. There has been prior L4-L5 laminectomy. <Electronically signed by Boaz Livingston > 10/16/20 [id number]
== END ==
LOC: M RAD 14:04
PROVIDERS: ATTEND Surgery
DX: K43.9 Ventral hernia without obstruction or gangrene (principal); K63.89 Other specified diseases of intestine; K76.89 Other specified diseases of liver

== ENCOUNTER → 2021-01-14 | Outpatient (REF) | payer MEDICARE | LOC: M SFHCADAM 11:29 | PROVIDERS: ATTEND Urology | DX: C61 Malignant neoplasm of prostate (principal) ==

== ENCOUNTER → 2021-04-08 | Outpatient (CLI) | payer MEDICARE ==
[2021-04-08 13:20] LABS: CHOLESTEROL RISK RATIO 5.567 (<5); PROSTATIC SPECIFIC AG MONITOR 0.2 NG/ML (< 4.00)
== END ==
LOC: M PLALAB 09:45
PROVIDERS: ATTEND Family Medicine
DX: E78.5 Hyperlipidemia, unspecified (principal); C61 Malignant neoplasm of prostate

== ENCOUNTER → 2021-04-08 | Outpatient (CLI) | payer MEDICARE | LOC: M PLALAB 09:43 | PROVIDERS: ATTEND Urology | DX: C61 Malignant neoplasm of prostate (principal) ==

== ENCOUNTER → 2021-04-17 | Outpatient (REF) | payer MEDICARE ==
[2021-04-17 17:39] LABS: BASO % 0.3 % (0.0-1.0); EOS # 0.2 10^3/uL (0.0-0.5); EOS % 3.7 % (0.0-3.0); HEMATOCRIT 43.2 % (42.0-52.0); HEMOGLOBIN 14.4 g/dl (13.5-17.5); LYMPH # 1.7 10^3/uL (1.5-5.0); MEAN CORPUSCULAR HEMOGLOBIN 31.9 pg (27.0-33.0); MEAN CORPUSCULAR HGB CONC 33.3 g/dl (32.0-36.5); MEAN CORPUSCULAR VOLUME 95.8 fl (80.0-96.0); MONO # 0.5 10^3/uL (0.0-0.8); MONO % 8.1 % (2.0-8.0); NEUTROPHILS # 3.8 10^3/uL (1.5-8.5); NEUTROPHILS % 60.4 % (36.0-66.0); PLATELET COUNT, AUTOMATED 213 10^3/uL (150-450); RED BLOOD COUNT 4.51 10^6/uL (4.30-6.10); WHITE BLOOD COUNT 6.3 10^3/uL (4.0-10.0)
[2021-04-17 19:00] LABS: ALBUMIN 3.5 GM/DL (3.2-5.2); ALT/SGPT 32 U/L (12-78); BILIRUBIN,TOTAL 0.6 MG/DL (0.2-1.0); BLOOD UREA NITROGEN 19 MG/DL (7-18); CALCIUM LEVEL 8.9 MG/DL (8.8-10.2); CARBON DIOXIDE LEVEL 30 MEQ/L (21-32); CHLORIDE LEVEL 101 MEQ/L (98-107); CREATININE FOR GFR 1.02 MG/DL (0.70-1.30); GLOMERULAR FILTRATION RATE > 60.0 (>42); GLUCOSE, FASTING 118 MG/DL (70-100); POTASSIUM SERUM 3.9 MEQ/L (3.5-5.1); SODIUM LEVEL 137 MEQ/L (136-145); TOTAL PROTEIN 6.6 GM/DL (6.4-8.2)
== END ==
LOC: M LABDRWAD 16:55
PROVIDERS: ATTEND Family Medicine
DX: Z01.818 Encounter for other preprocedural examination (principal)

== ENCOUNTER → 2021-05-02 | Outpatient (CLI) | payer MEDICARE | LOC: M LABSMTC 09:35 | PROVIDERS: ATTEND Anesthesiology | DX: Z01.812 Encounter for preprocedural laboratory examination (principal); Z20.822 Contact with and (suspected) exposure to COVID-19 ==

== ENCOUNTER 2021-05-07 06:08 | Outpatient (CLI) | payer MEDICARE ==
[~2021-05-07] VITALS: Ht 177.8 cm; Wt 112.5 kg
[~2021-05-07 06:08] MED LIST changes: +CelecoXIB 400 MG CAP PO ONE; +HEPARIN SOD (PORCINE) 5000UNITS/ML 1ML VIAL/SYRINGE SQ ONE; +LIDOCAINE 1% MDV 20ML VIAL SQ PRN; +LR 1,000 ML IV ONE; +ceFAZolin SOD 1 GM in D5W MINI-BAG PLUS 50 ML IV SCH
[2021-05-07] MEDS ORDERED: ceFAZolin 1GM VIAL (J0690 PER 500MG) As Ordered ONE ×2 (06:25→06:47)
[2021-05-07 06:36] VITALS: BP 172/59
[2021-05-07] MEDS ORDERED: LIDOCAINE 1% SDV 30ML VIAL As Ordered ONE (07:20)
[2021-05-07] MEDS ORDERED: BUPIVACAINE HCL 0.25% 10ML VIAL As Ordered ONE (07:20)
[2021-05-07] MEDS ORDERED: ALBUTEROL SULFATE 2.5 MG/0.5 ML INH NEB SOLN INH ONE (07:20)
[2021-05-07] MEDS ORDERED: BUPIVACAINE LIPOSOME/PF 1.3% 20ML VIAL (13.3MG/ML)(EXPAREL)(C9290 PER1MG) As Ordered ONE (07:20)
[2021-05-07] MEDS ORDERED: BUPIVACAINE HCL 0.25% 30ML VIAL As Ordered ONE (07:26)
[2021-05-20] MEDS ORDERED: BICA50TA9 PO (10:59)
== END 2021-05-07 08:00 | disposition home or self-care (01) ==
LOC: UNDOADMIN 06:08 → M OR 06:08 → M OPCLI5PR 06:08 → EDSTATUS 07:30 → M OPCLI5PR 08:00
PROVIDERS: ATTEND Surgery
DX: K43.2 Incisional hernia without obstruction or gangrene (principal); Z53.09 Procedure and treatment not carried out because of other contraindication; R06.2 Wheezing
CPT/HCPCS: 94640; 96372; J1644

== ENCOUNTER → 2021-05-20 | Outpatient (CLI) | payer MEDICARE ==
[~2021-05-20] MED LIST changes: +BICA50TA9 PO; -CelecoXIB 400 MG CAP PO ONE; -HEPARIN SOD (PORCINE) 5000UNITS/ML 1ML VIAL/SYRINGE SQ ONE; -LIDOCAINE 1% MDV 20ML VIAL SQ PRN; -LR 1,000 ML IV ONE; -ceFAZolin SOD 1 GM in D5W MINI-BAG PLUS 50 ML IV SCH
--- NOTE | 2021-05-20 11:18 | RADONC.CN ---
Radiation Oncology Hx/Consult Radiation Oncology Consult Date of Service: May 20, 2021 Pt Identifier Ti Alba is a 75 year old male with a history of [id number] Aidee 4+3=7 prostate cancer. He is s/p RALP complicated by rectourethral fistula and ventral hernia 05/25/19. He has seen his post-op PSA rise to 0.2 and is seen for consideration of salvage RT. Diagnosis/Treatment History Oncologic History Followed by Dr. Baldwin for rising PSA 05/25/19 RALP [id number] Foster 4+3=7 Margins negative 01/23/20 Rectourethral fistula repair @ [facility] 08/02/20 Colostomy reversal PSA Undetectable post op until 01/14/21 01/14/21 0.03 04/08/21 0.20 IPSS 13 GAUTAM 1 Interval History Here with his supportive Lucy (also a patient of mine). He reports he is incontinent of stool and urine and wears depends. Bowel continence has improved somewhat over time. Now has intermittent control. He has no irritative voiding symptoms, rather looses urine when he lifts or bears down. He has preserved appetite and energy, he does have hot flashes from time to time spontaneously. No pelvic pain. Has a ventral hernia repair scheduled for 07/20/21. Past Medical History: Asthma CVD GERD Glaucoma HTN Family History: Father- HN cancer Mother - Lung cancer Social History: Never smoker Drinks 1 beer per week Allergies / Meds Allergies: Coded Allergies: No Known Allergies (Unverified , 07/22/20) Home Meds Active Scripts Bicalutamide (Bicalutamide) 50 Mg Tablet, 1 TAB PO DAILY for 30 Days, #30 TAB Prov:JASIEL MCCLOUD MD 05/20/21 Reported Medications Cholecalciferol (Vitamin D3) (Vitamin D3) 1,000 Unit Tablet, 2000 UNITS PO DAILY, TAB 04/22/20 Omeprazole (Omeprazole) 20 Mg Capsule., 20 MG PO DAILY, CAP 04/22/20 Lisinopril/Hydrochlorothiazide (Lisinopril-Hctz 20-25 mg Tab) 1 Each Tablet, 1 TAB PO DAILY, TAB 04/28/19 Brimonidine Tartrate (Alphagan P) 0.15% 5ML Drops, 1 DROP OU BID 04/28/19 Ipratropium/Albuterol Sulfate (Iprat-Albut 0.5-3(2.5) mg/3 ml) 3 Ml Ampul.neb, 1 JAMIE INH TID, JAMIE 04/28/19 Salmeterol/Fluticasone (Advair 500-50 Diskus) 1 Each Blst.w.dev, 1 PUFF INH BID, INHALER 04/28/19 Gluc Mccall/Chondro Mccall A/Vit C/Mn (Glucosamine-Chondroitin Cap) 1 Each Capsule, 1 CAP PO BID, CAP 04/28/19 Albuterol Sulfate (Ventolin Hfa) 18 Gm Hfa.aer.ad, 2 PUFF INH Q4H PRN for SHORTNESS OF BREATH 04/28/19 Bimatoprost (Lumigan) 0.01% 2.5ML Drops, 1 DROP OU QHS 04/28/19 Review of Systems Constitutional: Reports: Fatigue; Denies: Weight Loss HEENT: Denies: Head Aches Skin: Denies: Rash Pulmonary: Reports: Cough; Denies: Dyspnea Cardiovascular: Denies: Chest Pain Gastrointestinal: Denies: Abdominal Pain, Hematochezia Genitourinary: Reports: Incontinence; Denies: Dysuria, Frequency Hematologic: Denies: Bruising Musculoskeletal: Denies: Neck pain, Back pain Neurological: Denies: Weakness, Numbness Psych: Reports: Mood Normal Vital Signs Ht 71" WT 250 lbs BMI 35 T 97 P 87 RR 18 BP 140/92 O2 93% Pain 0 Fatigue 0 General Exam: Alert, Cooperative, No Acute Distress Eye Exam: PERRLA, EOMI ENT EXAM: Atraumatic Neck Exam: Supple Chest Exam: Clear to auscultation, Normal air movement Heart Exam: Rate Normal Abdomen Exam: Normal bowel sounds, Soft, Hernia (Ventral hernia left of unbilicus reduces spontaneously) Extremity Exam: Negative: Edema Skin Exam: Nl turgor and temperature Neuro Exam: Normal Gait, Normal Speech, Cranial Nerves 3-12 NL Psych Exam: Mental status NL Diagnostic and Laboratory Diagnostic Review Radiologic images, relevant labs and pathology reports were personally reviewed and discussed with Mr. Alba. Assessment and Plan Impression Mr. Alba is a 75 year old male with a history of [id number] Aidee 4+3=7 prostate cancer. He is s/p RALP complicated by rectourethral fistula and ventral hernia 05/25/19. He has seen his post-op PSA rise to 0.2 and is seen for consideration of salvage RT. Stage Prostate cancer [id number] Foster 4+3=7 post-op PSA to 0.2 stage IIC Performance Status ECOG 1 Plan We had an extensive discussion with Mr. Alba regarding the diagnosis at hand and available therapeutic options. He has biochemical recurrence and a complicated surgical history. He has pending ventral hernia repair in June as well as persistent bowel and bladder incontinence, the former at least is improving in time. I recommend we proceed with salvage RT, 68.4 Gy in 38 fractions with VAMT, after his hernia repair, one because this problem is bothersome to him and two because he could use a little more time for continence improvement. To facilitate this temporal delay in salvage RT and to augment the probability of biochemical remission, I offered him 6 months of ADT, which has been shown on the SPPORT trial to improve bPFS in all-comers. He agreed to proceed with this. I will send a prescription for casodex 50 mg daily in anticipation of lupron 45 mg in 1-2 weeks. I will then see him back after his abdominal surgery in July 2021 to establ paul when to proceed with salvage RT. We discussed the logistics of receiving radiation therapy in detail including the need for a 1-time planning session. Timing TBD. We reviewed the side effects of treatment including fatigue, hot flashes, weight gain, decompensation of continence, bowel and bladder, irritative voiding symptoms, diarrhea, and increased risk of subsequent surgical complications. To mitigate the risk of further bowel problems and given his low PSA, I will treat only the prostate bed and omit the LN. After discussing the risks, benefits and alternatives to radiation therapy, Mr. Alba was amenable to pursuing radiotherapy. All questions were answered to the patient's satisfaction. We instructed the patient that if there were any questions,concerns or changes in clinical status in the interim to contact us. Recommendations ADT 6 months Casodex 50 mg in anticipation of lupron injections Proceed with ventral hernia repair as planned on 07/20/21 Simulation and salvage RT to follow his surgery in July 2021 Billing Statement Total time of [46] minutes was spent preparing for the visit [3], obtaining HPI [8], examining the patient [2], reviewing diagnostic tests [4], discussing management options [18], coordinating care [4], and writing this note [7]. JASIEL MCCLOUD MD May 20, 2021 11:18
== END ==
LOC: M ONCR 10:01
PROVIDERS: ATTEND General Practice
DX: C61 Malignant neoplasm of prostate (principal); R97.21 Rising PSA following treatment for malignant neoplasm of prostate; K21.9 Gastro-esophageal reflux disease without esophagitis; H40.9 Unspecified glaucoma; I10 Essential (primary) hypertension; J45.909 Unspecified asthma, uncomplicated; Z79.899 Other long term (current) drug therapy

== ENCOUNTER → 2021-06-03 | Outpatient (CLI) | payer MEDICARE ==
[~2021-06-03] MED LIST changes: +LEUPROLIDE 45MG SYRINGE KIT (LUPRON DEPOT) (FOR ONCOLOGY) IM ONE
--- NOTE | 2021-06-03 09:16 | RADENCPD ---
Date/Time of Encounter Date of Encounter: Jun 03, 2021 Time of Encounter: 09:15 Encounter Lupron 45 mg given per RN. Indication: PSA recurrence s/p prostatectomy. Plan: EBRT + short-term ADT. EBRT to commence in July 2021 (patient has complicated hernia surgery in the coming weeks). JASIEL MCCLOUD MD Jun 03, 2021 09:16
== END ==
LOC: M ONCR 11:09
PROVIDERS: ATTEND General Practice
DX: R97.21 Rising PSA following treatment for malignant neoplasm of prostate (principal)
CPT/HCPCS: 96372; G0463; J9217

== ENCOUNTER → 2021-07-07 | Outpatient (CLI) | payer MEDICARE ==
[~2021-07-07] MED LIST changes: -LEUPROLIDE 45MG SYRINGE KIT (LUPRON DEPOT) (FOR ONCOLOGY) IM ONE; +PROAAER10 INH
--- NOTE | 2021-07-07 14:19 | REP ---
INDICATION: ENCOUNTER FOR OTHER PREPROCEDURAL EXAMINATION COMPARISON: 09/13/2019 TECHNIQUE: PA and lateral. FINDINGS: The mediastinum and cardiac silhouette are normal. The lung vo demonstrate chronic changes without acute consolidation, effusion, or pneumothorax. The skeletal structures are intact and normal. IMPRESSION: No acute cardiopulmonary process. <Electronically signed by Garret Mustafa > 07/07/21 [id number]
[2021-07-07 16:49] LABS: BASO # 0.1 10^3/uL (0.0-0.2); BASO % 0.7 % (0.0-1.0); EOS # 0.3 10^3/uL (0.0-0.5); EOS % 3.3 % (0.0-3.0); HEMATOCRIT 42.7 % (42.0-52.0); HEMOGLOBIN 14.3 g/dl (13.5-17.5); LYMPH # 2.2 10^3/uL (1.5-5.0); LYMPH % 26.9 % (24.0-44.0); MEAN CORPUSCULAR HEMOGLOBIN 32.1 pg (27.0-33.0); MEAN CORPUSCULAR HGB CONC 33.5 g/dl (32.0-36.5); MONO # 0.5 10^3/uL (0.0-0.8); MONO % 6.4 % (2.0-8.0); NEUTROPHILS % 62.2 % (36.0-66.0); PLATELET COUNT, AUTOMATED 245 10^3/uL (150-450); RED BLOOD COUNT 4.45 10^6/uL (4.30-6.10); WHITE BLOOD COUNT 8.1 10^3/uL (4.0-10.0)
[2021-07-07 17:37] LABS: ALBUMIN 3.9 GM/DL (3.2-5.2); ALT/SGPT 32 U/L (12-78); BILIRUBIN,TOTAL 0.5 MG/DL (0.2-1.0); BLOOD UREA NITROGEN 21 MG/DL (7-18); CALCIUM LEVEL 9.3 MG/DL (8.8-10.2); CARBON DIOXIDE LEVEL 29 MEQ/L (21-32); CHLORIDE LEVEL 101 MEQ/L (98-107); CREATININE FOR GFR 1.15 MG/DL (0.70-1.30); GLOMERULAR FILTRATION RATE > 60.0 (>42); GLUCOSE, FASTING 121 MG/DL (70-100); POTASSIUM SERUM 3.8 MEQ/L (3.5-5.1); SODIUM LEVEL 137 MEQ/L (136-145)
== END ==
LOC: M ADAMS 13:56
PROVIDERS: ATTEND Family Medicine
DX: Z01.818 Encounter for other preprocedural examination (principal)

== ENCOUNTER 2021-08-19 10:28 | Outpatient (RCR) | payer MEDICARE | END 2021-08-22 | LOC: M ONCR 10:28 | PROVIDERS: ATTEND General Practice | DX: C61 Malignant neoplasm of prostate (principal) ==

== ENCOUNTER → 2021-09-03 | Outpatient (REF) | payer MEDICARE ==
[~2021-09-03] MED LIST changes: -LISI20TA20 PO; +LISI20TA37 PO
== END ==
LOC: M LABDRWAD 12:21
PROVIDERS: ATTEND Urology
DX: C61 Malignant neoplasm of prostate (principal)

== ENCOUNTER → 2021-09-22 | Outpatient (RCR) | payer MEDICARE ==
[~2021-09-22] MED LIST changes: +OMEP-173 PO; -OMEP-218 PO
== END ==
LOC: M ONCR 08-26 14:51
PROVIDERS: ATTEND General Practice
DX: C61 Malignant neoplasm of prostate (principal)

== ENCOUNTER → 2021-10-20 | Outpatient (RCR) | payer MEDICARE ==
[~2021-10-20] MED LIST changes: -D31000TA2 PO; +VITA100093 PO
== END ==
LOC: M ONCR 09-23 09:38
PROVIDERS: ATTEND General Practice
DX: C61 Malignant neoplasm of prostate (principal)

== ENCOUNTER 2021-11-07 09:37 | Outpatient (RCR) | payer MEDICARE | END 2021-11-20 | LOC: M ONCR 09:37 | PROVIDERS: ATTEND General Practice | DX: C61 Malignant neoplasm of prostate (principal) ==

== ENCOUNTER → 2022-02-10 | Outpatient (CLI) | payer MEDICARE | LOC: M ONCR 11:25 | PROVIDERS: ATTEND General Practice | DX: C61 Malignant neoplasm of prostate (principal); K43.9 Ventral hernia without obstruction or gangrene; Z79.51 Long term (current) use of inhaled steroids; Z79.899 Other long term (current) drug therapy; Z87.448 Personal history of other diseases of urinary system; Z90.79 Acquired absence of other genital organ(s); Z92.3 Personal history of irradiation; Z92.29 Personal history of other drug therapy ==

== ENCOUNTER → 2022-03-03 | Outpatient (REF) | payer MEDICARE | LOC: M SFHCADAM 13:15 | PROVIDERS: ATTEND Urology | DX: C61 Malignant neoplasm of prostate (principal) ==

== ENCOUNTER → 2022-08-05 | Outpatient (CLI) | payer MEDICARE ==
[~2022-08-05] MED LIST changes: +OXYB-54 PO
== END ==
LOC: M ONCR 09:45
PROVIDERS: ATTEND General Practice
DX: C61 Malignant neoplasm of prostate (principal); R15.9 Full incontinence of feces; R35.0 Frequency of micturition; R39.15 Urgency of urination; Z79.51 Long term (current) use of inhaled steroids; Z79.899 Other long term (current) drug therapy; Z90.79 Acquired absence of other genital organ(s); Z92.3 Personal history of irradiation; Z92.29 Personal history of other drug therapy

== ENCOUNTER → 2023-01-14 | Outpatient (CLI) | payer MEDICARE ==
[2023-01-14 16:58] LABS: BASO % 0.5 % (0.0-1.0); EOS # 0.2 10^3/uL (0.0-0.5); EOS % 3.5 % (0.0-3.0); HEMATOCRIT 37.8 % (42.0-52.0); HEMOGLOBIN 12.9 g/dl (13.5-17.5); LYMPH # 1.4 10^3/uL (1.5-5.0); LYMPH % 22.1 % (24.0-44.0); MEAN CORPUSCULAR HEMOGLOBIN 32.8 pg (27.0-33.0); MEAN CORPUSCULAR HGB CONC 34.1 g/dl (32.0-36.5); MEAN CORPUSCULAR VOLUME 96.2 fl (80.0-96.0); MONO # 0.6 10^3/uL (0.0-0.8); NEUTROPHILS % 64.3 % (36.0-66.0); PLATELET COUNT, AUTOMATED 216 10^3/uL (150-450); RED BLOOD COUNT 3.93 10^6/uL (4.30-6.10); WHITE BLOOD COUNT 6.2 10^3/uL (4.0-10.0)
[2023-01-14 17:19] LABS: ALBUMIN 3.9 G/DL (3.2-5.2); ALKALINE PHOSPHATASE 49 U/L (46-116); ALT/SGPT 27 U/L (7.0-40); AST/SGOT 18 U/L (<34); BILIRUBIN,TOTAL 0.5 MG/DL (0.3-1.2); BLOOD UREA NITROGEN 18 MG/DL (9-23); CALCIUM LEVEL 8.9 MG/DL (8.3-10.6); CARBON DIOXIDE LEVEL 28 MMOL/L (20-31); CHLORIDE LEVEL 98 MMOL/L (98-107); CHOLESTEROL LEVEL 192 MG/DL (<200); CHOLESTEROL RISK RATIO 4.64 (<5); CREATININE FOR GFR 1.01 MG/DL (0.70-1.30); GLOMERULAR FILTRATION RATE > 60.0 (>42); GLUCOSE, FASTING 102 MG/DL (74-106); HDL CHOLESTEROL 41.3 MG/DL (>40); LDL CHOLESTEROL 85.9 MG/DL (<100); NON-HDL-C 150.7 MG/DL; POTASSIUM SERUM 4.1 MMOL/L (3.5-5.1); PROSTATIC SPECIFIC AG MONITOR 0.04 NG/ML (< 4.00); SODIUM LEVEL 134 MMOL/L (136-145); TOTAL PROTEIN 6.2 G/DL (5.7-8.2); TRIGLYCERIDES LEVEL 324 MG/DL (<150)
[2023-01-14 17:26] LABS: HEMOGLOBIN A1c 5.8 % (4.0-6.0)
== END ==
LOC: M LABDRWAD 14:01
PROVIDERS: ATTEND Family Medicine
DX: C61 Malignant neoplasm of prostate (principal); I10 Essential (primary) hypertension; R73.01 Impaired fasting glucose

== ENCOUNTER → 2023-08-11 | Outpatient (CLI) | payer MEDICARE | LOC: M ONCR 09:57 | PROVIDERS: ATTEND General Practice | DX: Z08 Encounter for follow-up examination after completed treatment for malignant neoplasm (principal); Z85.46 Personal history of malignant neoplasm of prostate; R15.2 Fecal urgency; R19.7 Diarrhea, unspecified; Z71.2 Person consulting for explanation of examination or test findings; Z79.899 Other long term (current) drug therapy; Z90.79 Acquired absence of other genital organ(s); Z92.3 Personal history of irradiation; Z92.29 Personal history of other drug therapy ==

== ENCOUNTER → 2023-11-15 | Outpatient (REF) | payer MEDICARE, OTHER ==
[2023-11-15 14:52] LABS: BASO % 0.6 % (0.0-1.0); EOS # 0.3 10^3/uL (0.0-0.5); EOS % 3.8 % (0.0-3.0); HEMOGLOBIN 15.7 g/dl (13.5-17.5); LYMPH # 1.9 10^3/uL (1.5-5.0); LYMPH % 27.6 % (24.0-44.0); MEAN CORPUSCULAR HEMOGLOBIN 30.8 pg (27.0-33.0); MEAN CORPUSCULAR HGB CONC 32.7 g/dl (32.0-36.5); MEAN CORPUSCULAR VOLUME 94.1 fl (80.0-96.0); MONO # 0.6 10^3/uL (0.0-0.8); MONO % 7.8 % (2.0-8.0); NEUTROPHILS # 4.2 10^3/uL (1.5-8.5); NEUTROPHILS % 59.8 % (36.0-66.0); PLATELET COUNT, AUTOMATED 242 10^3/uL (150-450)
[2023-11-15 15:17] LABS: ALKALINE PHOSPHATASE 60 U/L (46-116); ALT/SGPT 24 U/L (7.0-40); AST/SGOT 15 U/L (<34); BILIRUBIN,TOTAL 0.6 MG/DL (0.3-1.2); BLOOD UREA NITROGEN 14 MG/DL (9-23); CARBON DIOXIDE LEVEL 32 MMOL/L (20-31); CHLORIDE LEVEL 95 MMOL/L (98-107); CHOLESTEROL LEVEL 191 MG/DL (<200); CHOLESTEROL RISK RATIO 3.97 (<5); CREATININE FOR GFR 0.95 MG/DL (0.70-1.30); GLOMERULAR FILTRATION RATE > 60.0 (>35); GLUCOSE, FASTING 99 MG/DL (74-106); HDL CHOLESTEROL 48.1 MG/DL (>40); LDL CHOLESTEROL 106.7 MG/DL (<100); NON-HDL-C 142.9 MG/DL; POTASSIUM SERUM 4.2 MMOL/L (3.5-5.1); SODIUM LEVEL 133 MMOL/L (136-145); TOTAL PROTEIN 6.6 G/DL (5.7-8.2); TRIGLYCERIDES LEVEL 181 MG/DL (<150)
[2023-11-15 15:26] LABS: HEMOGLOBIN A1c 5.7 % (4.0-6.0)
== END ==
LOC: M LABDRWAD 13:05
PROVIDERS: ATTEND Family Medicine
DX: R73.01 Impaired fasting glucose (principal); I10 Essential (primary) hypertension

== ENCOUNTER → 2024-02-15 | Outpatient (REF) | payer MEDICARE ==
[~2024-02-15] MED LIST changes: +BICA50TA4 PO; -BICA50TA9 PO
== END ==
LOC: M SFHCADAM 13:57
PROVIDERS: ATTEND Urology
DX: R97.21 Rising PSA following treatment for malignant neoplasm of prostate (principal)

== ENCOUNTER → 2024-06-07 | Outpatient (REF) | payer MEDICARE ==
[2024-06-07 15:04] LABS: BASO # 0.1 10^3/uL (0.0-0.2); BASO % 1.1 % (0.0-1.0); EOS # 0.2 10^3/uL (0.0-0.5); EOS % 3.3 % (0.0-3.0); HEMATOCRIT 47.6 % (42.0-52.0); HEMOGLOBIN 15.9 g/dl (13.5-17.5); LYMPH # 1.6 10^3/uL (1.5-5.0); LYMPH % 24.5 % (24.0-44.0); MEAN CORPUSCULAR HEMOGLOBIN 32.5 pg (27.0-33.0); MEAN CORPUSCULAR HGB CONC 33.4 g/dl (32.0-36.5); MEAN CORPUSCULAR VOLUME 97.3 fl (80.0-96.0); MONO # 0.6 10^3/uL (0.0-0.8); NEUTROPHILS # 3.9 10^3/uL (1.5-8.5); NEUTROPHILS % 61.3 % (36.0-66.0); PLATELET COUNT, AUTOMATED 230 10^3/uL (150-450); RED BLOOD COUNT 4.89 10^6/uL (4.30-6.10); WHITE BLOOD COUNT 6.4 10^3/uL (4.0-10.0)
[2024-06-07 15:09] LABS: ALKALINE PHOSPHATASE 59 U/L (46-116); ALT/SGPT 20 U/L (7.0-40); AST/SGOT 12 U/L (<34); BILIRUBIN,TOTAL 0.8 MG/DL (0.3-1.2); BLOOD UREA NITROGEN 18 MG/DL (9-23); CALCIUM LEVEL 9.8 MG/DL (8.3-10.6); CARBON DIOXIDE LEVEL 31 MMOL/L (20-31); CHLORIDE LEVEL 100 MMOL/L (98-107); CHOLESTEROL LEVEL 198 MG/DL (<200); CHOLESTEROL RISK RATIO 4.66 (<5); CREATININE FOR GFR 1.01 MG/DL (0.70-1.30); GLOMERULAR FILTRATION RATE > 60.0 (>35); GLUCOSE, FASTING 113 MG/DL (74-106); HDL CHOLESTEROL 42.4 MG/DL (>40); NON-HDL-C 155.6 MG/DL; POTASSIUM SERUM 4.5 MMOL/L (3.5-5.1); SODIUM LEVEL 135 MMOL/L (136-145); TRIGLYCERIDES LEVEL 158 MG/DL (<150)
[2024-06-07 15:11] LABS: HEMOGLOBIN A1c 5.2 % (4.0-6.0)
== END ==
LOC: M LABDRWAD 13:00
PROVIDERS: ATTEND Family Medicine
DX: R73.01 Impaired fasting glucose (principal); I10 Essential (primary) hypertension

== ENCOUNTER → 2024-06-07 | Outpatient (REF) | payer MEDICARE | LOC: M SFHCADAM 07:39 | PROVIDERS: ATTEND Urology | DX: C61 Malignant neoplasm of prostate (principal) ==

== ENCOUNTER → 2024-08-09 | Outpatient (CLI) | payer MEDICARE | LOC: M ADAMS 13:58 | PROVIDERS: ATTEND Family Medicine | DX: M51.26 Other intervertebral disc displacement, lumbar region (principal) ==

== ENCOUNTER → 2024-08-11 | Outpatient (CLI) | payer MEDICARE ==
[~2024-08-11] MED LIST changes: +MELO15TA28 PO; +MYRB25TA PO; +OXYB10TA23 PO
== END ==
LOC: M ONCR 10:14
PROVIDERS: ATTEND General Practice
DX: C61 Malignant neoplasm of prostate (principal); R97.21 Rising PSA following treatment for malignant neoplasm of prostate; N39.46 Mixed incontinence; M51.362 Other intervertebral disc degeneration, lumbar region with discogenic back pain and lower extremity pain; Z90.79 Acquired absence of other genital organ(s); Z92.3 Personal history of irradiation; Z92.29 Personal history of other drug therapy; Z79.1 Long term (current) use of non-steroidal anti-inflammatories (NSAID); Z79.899 Other long term (current) drug therapy

== ENCOUNTER → 2024-08-30 | Outpatient (CLI) | payer MEDICARE ==
[~2024-08-30] MED LIST changes: -ADV500INH INH; +ADVA1AER10 INH
== END ==
LOC: M PLAIMG 15:17
PROVIDERS: ATTEND Family Medicine
DX: M51.26 Other intervertebral disc displacement, lumbar region (principal); M47.816 Spondylosis without myelopathy or radiculopathy, lumbar region; M48.061 Spinal stenosis, lumbar region without neurogenic claudication; M46.06 Spinal enthesopathy, lumbar region

== ENCOUNTER → 2024-09-01 | Outpatient (CLI) | payer MEDICARE ==
[~2024-09-01] MED LIST changes: +PRED5TA PO; +ZYTI250T PO
== END ==
LOC: M ONCR 10:02
PROVIDERS: ATTEND General Practice
DX: C61 Malignant neoplasm of prostate (principal); R97.21 Rising PSA following treatment for malignant neoplasm of prostate; Z79.1 Long term (current) use of non-steroidal anti-inflammatories (NSAID); Z79.899 Other long term (current) drug therapy; Z90.79 Acquired absence of other genital organ(s); Z92.3 Personal history of irradiation

== ENCOUNTER 2024-09-14 13:58 | Outpatient (RCR) | payer MEDICARE | END 2024-09-22 | LOC: M ONCR 13:58 | PROVIDERS: ATTEND General Practice | DX: Z51.0 Encounter for antineoplastic radiation therapy (principal); C61 Malignant neoplasm of prostate | CPT/HCPCS: 77300; 77301; 77334; 77338; 77470; 96402; J9217 ==

== ENCOUNTER → 2024-09-14 | Outpatient (CLI) | payer MEDICARE ==
[~2024-09-14] MED LIST changes: +ABIR500T PO
[2024-09-14] MEDS: LEUPROLIDE 45MG SYRINGE KIT (LUPRON DEPOT) IM ONE (14:44)
== END ==
LOC: M ONCR 14:13
PROVIDERS: ATTEND General Practice
DX: C61 Malignant neoplasm of prostate (principal)

== ENCOUNTER → 2024-10-20 | Outpatient (RCR) | payer MEDICARE ==
[2024-10-09 12:15] LABS: BASO % 0.5 % (0.0-1.0); EOS # 0.1 10^3/uL (0.0-0.5); EOS % 2.4 % (0.0-3.0); HEMATOCRIT 33.8 % (42.0-52.0); LYMPH # 0.8 10^3/uL (1.5-5.0); MEAN CORPUSCULAR HEMOGLOBIN 32.4 pg (27.0-33.0); MEAN CORPUSCULAR HGB CONC 35.5 g/dl (32.0-36.5); MEAN CORPUSCULAR VOLUME 91.4 fl (80.0-96.0); MONO # 0.4 10^3/uL (0.0-0.8); MONO % 7.1 % (2.0-8.0); NEUTROPHILS # 4.4 10^3/uL (1.5-8.5); NEUTROPHILS % 76.1 % (36.0-66.0); PLATELET COUNT, AUTOMATED 215 10^3/uL (150-450); WHITE BLOOD COUNT 5.8 10^3/uL (4.0-10.0)
[2024-10-09 12:42] LABS: PROSTATIC SPECIFIC AG MONITOR 0.16 NG/ML (< 4.00)
[2024-10-09 12:45] LABS: ALBUMIN 3.7 G/DL (3.2-5.2); ALKALINE PHOSPHATASE 51 U/L (40-129); ALT/SGPT 20 U/L (7.0-40); AST/SGOT 16 U/L (<34); BILIRUBIN,TOTAL 0.8 MG/DL (0.3-1.2); BLOOD UREA NITROGEN 15 MG/DL (9-23); CALCIUM LEVEL 8.8 MG/DL (8.3-10.6); CARBON DIOXIDE LEVEL 28 MMOL/L (20-31); CHLORIDE LEVEL 95 MMOL/L (98-107); CREATININE FOR GFR 0.73 MG/DL (0.70-1.30); GLOMERULAR FILTRATION RATE > 60.0 (>35); GLUCOSE, FASTING 104 MG/DL (74-106); POTASSIUM SERUM 3.9 MMOL/L (3.5-5.1); SODIUM LEVEL 131 MMOL/L (136-145); TOTAL PROTEIN 6.3 G/DL (5.7-8.2)
[2024-10-09 12:51] LABS: TESTOSTERONE < 7 NG/DL (241-827)
== END ==
LOC: M ONCR 10-02 11:27
PROVIDERS: ATTEND General Practice
DX: Z51.0 Encounter for antineoplastic radiation therapy (principal); C61 Malignant neoplasm of prostate

== ENCOUNTER → 2024-11-01 | Outpatient (CLI) | payer MEDICARE ==
[2024-11-01 18:28] LABS: BLOOD UREA NITROGEN 15 MG/DL (9-23); C REACTIVE PROTEIN QUANTITATIV < 0.50 MG/DL (<1.0); CREATININE FOR GFR 0.72 MG/DL (0.70-1.30); GLOMERULAR FILTRATION RATE > 60.0 (>35)
[2024-11-01 18:30] LABS: BASO % 0.3 % (0.0-1.0); EOS # 0.2 10^3/uL (0.0-0.5); EOS % 2.5 % (0.0-3.0); HEMATOCRIT 31.6 % (42.0-52.0); HEMOGLOBIN 11.1 g/dl (13.5-17.5); LYMPH # 0.6 10^3/uL (1.5-5.0); LYMPH % 9.7 % (24.0-44.0); MEAN CORPUSCULAR HEMOGLOBIN 33.4 pg (27.0-33.0); MEAN CORPUSCULAR HGB CONC 35.1 g/dl (32.0-36.5); MEAN CORPUSCULAR VOLUME 95.2 fl (80.0-96.0); MONO # 0.5 10^3/uL (0.0-0.8); MONO % 7.7 % (2.0-8.0); NEUTROPHILS # 4.7 10^3/uL (1.5-8.5); NEUTROPHILS % 78.8 % (36.0-66.0); PLATELET COUNT, AUTOMATED 186 10^3/uL (150-450); RED BLOOD COUNT 3.32 10^6/uL (4.30-6.10); RHEUMATOID FACTOR QUANT < 3.5 IU/ML (<14)
[2024-11-01 18:31] LABS: URIC ACID 3.9 MG/DL (3.7-9.2)
[2024-11-01 18:39] LABS: ERYTHROCYTE SEDIMENTATION RATE 8 mm/hr (0-20)
[2024-11-06 12:43] LABS: ANA SCREEN, IFA NEGATIVE (NEGATIVE)
[2024-11-06 21:57] LABS: LYME TOTAL ANTIBODY CIA <= 0.90 Index (<=0.90)
== END ==
LOC: M ADAMS 14:21
PROVIDERS: ATTEND Physician Assistant Surgical
DX: M43.16 Spondylolisthesis, lumbar region (principal); Z79.899 Other long term (current) drug therapy

== ENCOUNTER 2024-11-10 11:20 | Outpatient (RCR) | payer MEDICARE | END 2024-11-20 | LOC: M ONCR 11:20 | PROVIDERS: ATTEND General Practice | DX: Z51.0 Encounter for antineoplastic radiation therapy (principal); C61 Malignant neoplasm of prostate ==

== ENCOUNTER → 2025-02-27 | Outpatient (CLI) | payer MEDICARE ==
[~2025-02-27] MED LIST changes: -FLOM0.4C39 PO; +TAMS-18 PO
[2025-02-27 17:40] LABS: PLATELET COUNT, AUTOMATED 212 10^3/uL (150-450)
[2025-02-27 17:59] LABS: INR 1.12
== END ==
LOC: M PLALAB 14:55
PROVIDERS: ATTEND Physician Assistant Surgical
DX: Z01.818 Encounter for other preprocedural examination (principal)

== ENCOUNTER → 2025-04-02 | Outpatient (REF) | payer MEDICARE ==
[2025-04-02 13:42] LABS: BASO # 0.0 10^3/uL (0.0-0.2); BASO % 0.8 % (0.0-1.0); EOS # 0.3 10^3/uL (0.0-0.5); EOS % 5.6 % (0.0-3.0); LYMPH # 0.9 10^3/uL (1.5-5.0); LYMPH % 18.5 % (24.0-44.0); MONO # 0.5 10^3/uL (0.0-0.8); MONO % 10.2 % (2.0-8.0); NEUTROPHILS # 3.1 10^3/uL (1.5-8.5); NEUTROPHILS % 64.1 % (36.0-66.0); PLATELET COUNT, AUTOMATED 241 10^3/uL (150-450)
[2025-04-02 13:48] LABS: ALT/SGPT 13.0 U/L (7.0-40); AST/SGOT 16.0 U/L (<34); CALCIUM LEVEL 9.3 MG/DL (8.3-10.6); CARBON DIOXIDE LEVEL 30.0 MMOL/L (20-31); CHLORIDE LEVEL 98.0 MMOL/L (98-107); CHOLESTEROL LEVEL 212.0 MG/DL (<200); CHOLESTEROL RISK RATIO 4.31 (<5); CREATININE FOR GFR 0.84 MG/DL (0.70-1.30); GLOMERULAR FILTRATION RATE 87.6 (>35); LDL CHOLESTEROL 122.3 MG/DL (<100); NON-HDL-C 162.9 MG/DL; POTASSIUM SERUM 3.9 MMOL/L (3.5-5.1); SODIUM LEVEL 139.0 MMOL/L (136-145); TRIGLYCERIDES LEVEL 203.0 MG/DL (<150)
== END ==
LOC: M LABDRWAD 12:52
PROVIDERS: ATTEND Internal Medicine Cardiovascular Disease
DX: I48.0 Paroxysmal atrial fibrillation (principal); I10 Essential (primary) hypertension; R07.89 Other chest pain; E78.2 Mixed hyperlipidemia

== ENCOUNTER → 2025-07-15 | Outpatient (CLI) | payer MEDICARE | LOC: M SLEEP 20:00 | PROVIDERS: ATTEND Physician Assistant | DX: G47.33 Obstructive sleep apnea (adult) (pediatric) (principal); R06.83 Snoring; I48.91 Unspecified atrial fibrillation ==

== ENCOUNTER → 2025-08-13 | Outpatient (CLI) | payer MEDICARE | LOC: M ADAMS 13:59 | PROVIDERS: ATTEND Family Medicine | DX: J18.9 Pneumonia, unspecified organism (principal) ==

== ENCOUNTER → 2025-08-14 | Outpatient (CLI) | payer MEDICARE ==
[2025-08-14 15:06] LABS: PROSTATIC SPECIFIC AG MONITOR 0.04 NG/ML (< 4.00)
[2025-08-14 15:12] LABS: TESTOSTERONE < 7 NG/DL (241-827)
== END ==
LOC: M ONCR 13:59
PROVIDERS: ATTEND General Practice
DX: C61 Malignant neoplasm of prostate (principal); Z90.79 Acquired absence of other genital organ(s); Z92.3 Personal history of irradiation; Z79.818 Long term (current) use of other agents affecting estrogen receptors and estrogen levels; Z79.52 Long term (current) use of systemic steroids; Z79.51 Long term (current) use of inhaled steroids; Z79.899 Other long term (current) drug therapy
CPT/HCPCS: 36415; 84153; 84403; G0463